=== PATIENT | male | born 1950 | race Caucasian/White ===

== ENCOUNTER → 2023-12-14 | Outpatient (CLI) | payer MEDICARE, SELFPAY ==
--- NOTE | 2023-12-14 15:49 | RAD_ITS ---
EXAM: XR LUMBOSACRAL SPINE, 4 OR 5 VIEWS CLINICAL INDICATION: SCIATICA TECHNIQUE: Frontal, lateral and bilateral oblique views of the lumbar spine. COMPARISON: No relevant prior studies available. FINDINGS: VERTEBRAE: Multilevel facet and endplate osteophytosis. [place] right curvature of the lumbar spine. No fracture or spondylolysis. No spondylolisthesis. SACRUM/COCCYX: Symmetric arthrosis of the bilateral SI joints. DISC SPACES: Markedly diminished intervertebral disc height throughout the lumbar spine. VASCULATURE: Vascular calcifications. GASTROINTESTINAL TRACT: Normal as visualized. Included bowel gas pattern is non-obstructive. RAD/L/S Spine Min 4 Views IMPRESSION: Severe degenerative changes. No definite acute osseous findings. Electronically Signed: Rizwan Garcia DO at 20:54 EDT ,
--- NOTE | 2023-12-14 15:50 | RAD_ITS ---
EXAM: XR CERVICAL SPINE, 4 OR 5 VIEWS CLINICAL INDICATION: neck pain, neuropathy TECHNIQUE: Frontal, lateral and bilateral oblique views of the cervical spine. COMPARISON: No relevant prior studies available. FINDINGS: VERTEBRAE: Multilevel facet, uncovertebral joint, and endplate osteophytosis. Straightening of expected cervical lordosis. Apparently degenerative anterolisthesis of C4 in relation to C3 and C5. No spondylolisthesis. No fracture or traumatic subluxation. DISC SPACES: Mild osseous encroachment of multiple bilateral neural foramina. Multilevel intervertebral disc height loss. Degenerative changes partially visualized in the upper thoracic spine. SOFT TISSUES: No significant abnormality. No prevertebral soft tissue widening. VASCULATURE: Vascular calcifications. LUNG APICES: Clear. RAD/Cerv Spine 4 or 5 Views IMPRESSION: Extensive degenerative changes as detailed above. No acute osseous findings. Consider follow-up MRI. Electronically Signed: Rizwan Garcia DO at 22:08 EDT ,
== END | disposition home or self-care (01) ==
LOC: MTRAD 15:46
PROVIDERS: PCP Family Medicine; Referring Provider Family Medicine; Visit Provider Family Medicine
DX: M54.30 Sciatica, unspecified side (principal); M54.2 Cervicalgia
CPT/HCPCS: 72050; 72110

== ENCOUNTER → 2023-12-19 | Outpatient (CLI) | payer MEDICARE, SELFPAY ==
[2023-12-19 10:38] LABS: Absolute Lymphocyte Count 1.42 X10^3/uL (0.83-4.51); Absolute Neutrophil Count 3.1 X10^3/uL (2.0-7.7); Basophil# 0.01 X10^3/uL; Basophil% 0.2 % (0-1); Eosinophil# 0.23 X10^3/uL; Eosinophils% 4.4 % (0-5); Hematocrit 43.9 % (40-54); Hemoglobin 14.4 g/dL (13.0-16.5); Lymphocyte # 1.42 X10^3/ul (0.83-4.51); Lymphocyte % 26.9 % (19-41); Mean Corp Hgb Conc 32.8 g/dL (32-36); Mean Corpuscular Hgb 30.1 pg (27.0-32.0); Mean Corpuscular Volume 91.6 fL (80-94); Mean Platelet Vol. 11.2 fl (6.2-12.0); Monocyte# 0.51 X10^3/uL; Monocyte% 9.7 % (0-10); NRBC Flagged by Analyzer 0 % (0-5); Neutrophil % 58.6 % (47-70); Platelet Count 196 K/mm3 (150-450); RBC Distribution Width CV 13.2 % (11.6-14.6); RBC Distribution Width SD 44.2 fl (35.1-43.9); Red Blood Count 4.79 M/mm3 (4.6-6.2); White Blood Count 5.3 K/mm3 (4.4-11.0)
[2023-12-19 11:18] LABS: Hemoglobin A1c 5.3 % (3.8-5.6)
[2023-12-19 13:03] LABS: AST(SGOT) 22 U/L (15-37); Alanine Aminotransfer ALT/SGPT 24 U/L (16-61); Albumin, Serum 3.5 g/dL (3.2-5.0); Alkaline Phosphatase 75 U/L (45-117); Anion Gap 6 (5-15); BUN 12 mg/dL (7-18); BUN/Creat Ratio 13.6 RATIO (10-20); Calcium,Total 8.9 mg/dL (8.5-10.1); Chloride 108 mmol/L (98-107); Cholesterol 209 mg/dL (200); Creatinine, Serum 0.88 mg/dL (0.70-1.30); EST Glomerular Filtration Rate 89 mL/min (>60); Est Glom Filt Rate - Afr Amer 108 mL/min (>60); Globulin 3.5 g/dL (2.2-4.2); Glucose 96 mg/dL (74-106); High Density Lipoprotein 42 mg/dL; Potassium 4.1 mmol/L (3.5-5.1); Sodium Level 139 mmol/L (136-145); Thyroid Stim Hormone (TSH) 3.33 uIU/mL (0.358-3.74); Triglycerides 231 mg/dL; Very Low Density Lipoprotein 46 mg/dL (5-40)
== END | disposition home or self-care (01) ==
LOC: MTLAB 08:47
PROVIDERS: PCP Family Medicine; Referring Provider Family Medicine; Visit Provider Family Medicine
DX: I10 Essential (primary) hypertension (principal); Z12.5 Encounter for screening for malignant neoplasm of prostate; E78.5 Hyperlipidemia, unspecified; Z13.1 Encounter for screening for diabetes mellitus
CPT/HCPCS: 36415; 80053; 80061; 83036; 84153; 84443; 85025; G0103

== ENCOUNTER → 2024-01-23 | Outpatient (CLI) | payer MEDICARE, SELFPAY ==
--- NOTE | 2024-01-23 17:57 | MRI_ITS ---
STUDY: MRI LUMBAR SPINE WITHOUT CONTRAST REASON FOR EXAM: Male, 73 years old. partial right foot drop, leg weakness, hx of L4-L5 sx 14yrs ago, previous xrays TECHNIQUE: Standardized fat and water weighted pulse sequences were obtained in the sagittal and axial planes. COMPARISON: Lumbar spine x-ray dated January 23, 2024 FINDINGS: Normal lumbar lordosis. There is no substantial scoliosis. Normal conus medullaris that terminates at the L1. T12-L1: Normal endplates. Normal disc height, hydration and morphology. Normal bilateral facet joints. Normal central canal and bilateral lateral recesses. Normal bilateral intervertebral neural foramina. L1-2: Diffuse disc desiccation. Small Schmorl''s nodes. Mild to moderate facet joint and ligament of flavum hypertrophy. Mild central canal stenosis. Normal bilateral intervertebral neural foramina. L2-3: Severe disc space narrowing with moderate Modic endplate degenerative changes. Diffuse disc osteophyte complex. Moderate facet joint and ligament of flavum hypertrophy. Bilateral lateral recess stenosis and mild central canal stenosis. L3-4: Diffuse disc desiccation with moderate disc space narrowing and a right paracentral disc protrusion causing right lateral recess stenosis with nerve root compression. Moderate central canal stenosis. Moderate facet joint and ligamenta flava hypertrophy. Severe bilateral foraminal stenosis with nerve root compression. L4-5: Diffuse disc desiccation with moderate disc space narrowing and diffuse disc bulging. Severe right facet joint hypertrophy. Mild left facet joint hypertrophy. Mild to moderate bilateral foraminal stenosis. Mild central canal stenosis. L5-S1: Normal endplates. Diffuse disc desiccation with mild disc space narrowing and annular bulging. Mild facet joint hypertrophy. Normal central canal and bilateral lateral recesses. Normal bilateral intervertebral neural foramina. Normal visualized sacral ala. Normal visualized paraspinous soft tissue structures. MRI/Spine Lumbar (Routine) IMPRESSION: 1. Multilevel degenerative changes, as described above. Electronically Signed: Hernan Velazco MD at 11:13 EDT ,
== END | disposition home or self-care (01) ==
LOC: MRI 17:45
PROVIDERS: PCP Family Medicine; Referring Provider Orthopaedic Surgery Orthopaedic Surgery of the Spine; Visit Provider Orthopaedic Surgery Orthopaedic Surgery of the Spine
DX: M21.371 Foot drop, right foot (principal)
CPT/HCPCS: 72148

== ENCOUNTER 2024-03-05 12:52 | Inpatient (IN) | payer MEDICARE, SELFPAY ==
[2024-02-21 10:11] LABS: Magnesium 2.2 mg/dL (1.6-2.6)
[2024-02-21 14:22] LABS: HIV - WCH Non-Reactive (Nonreactive); Hepatitis B Surface Antibody Non-Reactive; Hepatitis C Antibody Non-Reactive (Nonreactive)
[2024-02-22 05:07] LABS: Hepatitis A AB, Total Positive (Negative)
[2024-03-05] VITALS (18 sets, daily range): BP systolic 95–144; BP diastolic 53–75; PULSE 57–80; RESP 10–99; TEMP 36.1–36.7; O2SAT 15–100; BMI 31.6
[2024-03-05] MEDS: Lactated Ringers 1,000 ML 15 ML IV ×2 (06:00→15:22)
[2024-03-05] MEDS: Magnesium 1 GM over 15 mins IV (06:10)
[2024-03-05] MEDS: Acetaminophen 500 MG Tablet 1000 MG PO ×3 (06:29→21:23)
--- NOTE | 2024-03-05 07:22 | HP.PCM_ITS ---
History and Physical Date of Admission: 03/05/24 MR#: [id number] Acct: [id number] Name: JACKLYN WU Rep #: [id number] : 1950 Provider: Dr. Carson Vasquez MD Age/Sex: 73/M Location: [facility] [email or web address] Status: Signed Intake Vital Signs 01/22/2413:57 Height 5 ft 11 in Intake Visit Reasons: lumbar spine Chief Complaint: lumbar spine Accompanied by: Allergies No Known Allergies Allergy (Verified 02/28/24 08:11) Medications ?Medication ?Instructions ?Recorded ?Confirmed ?Type atorvastatin 20 mg tablet 20 mg PO DAILY HYPERLIDEMIA 01/23/24 02/28/24 History multivitamin 1 tab PO DAILY SUPPLEMENT 01/23/24 02/28/24 History naproxen 500 mg tablet 500 mg PO BID PRN pain 01/23/24 02/28/24 History omega-3 fatty acids 1,250 mg 1,250 mg PO BID SUPPLEMENT 01/23/24 02/28/24 History capsule omeprazole 40 mg capsule,delayed 40 mg PO DAILY GERD 01/23/24 02/28/24 History release gabapentin 300 mg capsule 600 mg PO TID NERVE PAIN 01/31/24 02/28/24 History Have you fallen in the past year?: No PFSH Medical History Wears glasses Alcohol use Arthritis Back pain Heartburn Gastric reflux Leg cramps History of edema Non-smoker Surgical History History of colonoscopy History of back surgery History of knee replacement Social History Smoking Status: Never smoker alcohol intake: current alcohol intake frequency: 0-2 drinks per day substance use type: does not use frequency: 1-2 times per week HPI lumbar spine Details: This documentation accurately reflects the service provided and the decisions made by me, Dr. Carson Vasquez MD 02/28/24 0804. Part of today?s visit was documented by Nolvia CHILDERS, acting as scribe. JACKLYN WU is a 73 year old M here today for pre-op lumbar spine dos 03/05/24. Patient denies any changes. Jacklyn continues to have low back pain with right partial foot drop, with bilateral right worse than left lower extremity radiation and difficulty walking distances. Following his his previous history: 01/31/24: JACKLYN WU is a 73 year old M here today for MRI review. Patient states his pain gotten worse since the MRI. Jacklyn comes in for follow-up after the MRI. He continues to have low back pain with right lower extremity radiation of pain with weakness and numbness and persistent difficulty with right partial foot drop. His hand numbness and balance have somehow improved over the last week, which she attributes to stopping pregabalin. Following his his previous history: 01/23/24: JACKLYN WU is a 73 year old M here today for lumbar spine pain. Pt. advises he had L4-L5 surgery 15 years ago. He states his pain flared up a couple months ago and he is experiencing pain from his low back down his right leg. He states his right leg feels heavy and he has numbness in his right foot and great toe. He was referred by Dr. Sinha. He takes Gabapentin which he has taken for about 10 years for nerve pain. He recently started taking Lyrica instead of Gabapentin which he thinks is making him dizzy. He also takes Naproxen for pain. Jacklyn had L4-5 decompression surgery 15 years ago. He describes that he had significant low back pain and right lower extremity radiation back then. Surgery initially helped to some extent with the leg symptoms but continued to bother his lower back for many many years. Over the last 2 months he has noticed that his right leg feels heavy and he flops his right foot after walking. He also notices hand numbness and dexterity issues. He has bilateral lower extremity numbness worse on the right side. He is nondiabetic. He denies any previous strokes. He is not on any blood thinners. He also notices axial neck pain without any radiation. He has only dexterity issues with clumsiness using his hand with small tools. Ortho Exam General General: Yes no acute distress Neurologic: Yes alert and Yes oriented x3 Spine SPINE TESTING CERVICAL THORACIC LUMBAR Musculoskeletal Strength 0=absent - 5=normal Details: Examination the back shows midline and paraspinal tenderness. Neurologic evaluation of upper and lower extremity shows 5 x 5 power normal shows except for right ankle dorsiflexion which is graded 4 -. Romberg's is positive. There is no hyperreflexia lower extremities. Lenny's negative. Coding Level of Care Code Off vis,est,level 4 Diagnoses Spondylolisthesis, lumbar region M43.16 Foot drop, right M21.371 Cervical myelopathy G95.9 Time Spent (min) 35 Assessment and Plan Assessment and Plan (1) Spondylolisthesis, lumbar region: Status: Acute (2) Foot drop, right: Status: Acute (3) Cervical myelopathy: Status: Acute Plan I again reviewed his x-rays of the lumbar and cervical spine done last month. I also reviewed his most recent lumbar MRI from last week. These show multilevel disc height loss with L4-5 grade 1 spondylolisthesis with dynamic instability. There is L2-5 degenerative stenosis. L2-3 shows Modic changes with severe disc height loss and disc degeneration. L3-4 shows central stenosis. L4-5 shows lateral recess and foraminal stenosis bilaterally with reduction of spondylolisthesis due to supine positioning. Cervical spine shows C3-4 disc height loss with retrolisthesis with C4-5 spondylolisthesis. Screening images of cervical spine on the MRI lumbar spine suggest C3-4 stenosis with cord in dentation. I again explained to him the imaging findings in detail. He has developed partial foot drop on the right side and has neurogenic claudication and walking distances. He also has signs symptoms suggestive of cervical myelopathy with dexterity, hand numbness and balance issues. Somehow these myelopathic symptoms have improved over time which he attributes to stopping pregabalin. I explained to him that cervical myelopathy is a progressive pattern and he should keep a close eye on those symptoms and if there is worsening he may need cervical spine MRI and possibly surgery on an urgent basis. However at this time his main symptom seems to be right partial foot drop as well as severe radicular pain as well as claudication. Because of the presence of weakness and neurologic defic it, I recommend surgery for the lumbar spine in the form of L2-5 decompression fusion. L2-5 anterior posterior fusion with indirect decompression was discussed in detail. All risk benefits and alternatives were discussed. The risks include but are not limited to infection, bleeding, injury to nerves and vessels, visceral injury, ileus, vascular injury, pseudoarthrosis, hardware failure, nerve root injury, foot drop, DVT, pulmonary embolism, pneumonia, atelectasis, cardiopulmonary event, adjacent segment degeneration, need for further surgery, persistent pain, persistent weakness. Patient understands and agrees to proceed with surgery. Consent was signed.
--- NOTE | 2024-03-05 07:24 | PRE.ANES_ITS ---
ASA Classification* ASA Classification ASA Classification: 2 Assessment & Plan Anesthesia* Anesthesia Assessment Anesthesia Assessment: Discussed sedation and/or anesthesia options, risks, benefits, and alternatives with patient/parents/legal guardian/POA. Questions invited. The patient/parents/legal guardian/POA seems to understand and agrees to proceed with anesthesia plan. Reviewed the physical assessment, medical history, allergy history and patient home medications list prior to surgery/procedure/anesthetic and documented any changes. Performed airway and anesthesia risk assessments. Anesthesia Type Anesthesia Type: General Anesthesia Focused Assessment* Temperature: 98.1 F Pulse Rate: 58 Blood Pressure: 144/67 Respiratory Rate: 18 Pulse Ox: 97 Airway Assessment Mouth opens: >3 cm Mallampati Score: II Focused Labs Anesthesia Preop lab: CBC WBC 5.3 K/mm3 (4.4-11.0) 12/19/23 08:49 RBC 4.79 M/mm3 (4.6-6.2) 12/19/23 08:49 Hgb 14.4 g/dL (13.0-16.5) 12/19/23 08:49 Hct 43.9 % (40-54) 12/19/23 08:49 Plt Count 196 K/mm3 (150-450) 12/19/23 08:49 CHEMISTRY Potassium 4.1 mmol/L (3.5-5.1) 12/19/23 08:49 Sodium 139 mmol/L (136-145) 12/19/23 08:49 Magnesium 2.2 mg/dL (1.6-2.6) 02/21/24 09:17 BUN 12 mg/dL (7-18) 12/19/23 08:49 Creatinine 0.88 mg/dL (0.70-1.30) 12/19/23 08:49 Glucose 96 mg/dL (74-106) 12/19/23 08:49 TSH 3.33 uIU/mL (0.358-3.74) 12/19/23 08:49 COAG Pre-Assessment Diagnosis/Proposed Procedure Planned Operative Procedure(s): ERAS 360 Lumbar Fusion L2-3, L3-4 and L4-5 Anesthesia History 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 When Was Last Pacemaker Check QUESTION #4 FULL TEXT: You/Your Family Experience fever (hyperthermia) with Anesthesia Last Oral Intake Last Oral intake: Last Oral Intake NPO since 04:30 03/05/24 06:00 Meds taken in AM with sips of Yes 03/05/24 06:00 water? Meds patient instructed to OMEPRAZOLE 03/05/24 06:00 take am of surgery PONV PONV - machine shop repair technician: PONV - machine shop repair technician Female No 02/20/24 13:06 HX of Motion Sickness No 02/20/24 13:06 HX of N/V After Surgery No 02/20/24 13:06 Non-Smoker Yes 02/20/24 13:06 Duration of Surgery greater Yes 02/20/24 13:06 than 60 minutes Number of Risk Factors 2 02/20/24 13:06 PONV Score Moderate Risk 02/20/24 13:06 Height & Weight Height & Weight: Anesthesia: Height & Weight Height 5 ft 11 in 03/05/24 06:00 Weight: 103 kg 03/05/24 06:00 Body Mass Index (BMI) 31.6 03/05/24 06:00 Respiratory Assessment Respiratory Assessment - machine shop repair technician: Respiratory Tract Infection Hx - machine shop repair technician Hx Respiratory Tract Infection No 02/20/24 13:06 STOP Sleep Apnea STOP Sleep Apnea - machine shop repair technician: STOP Sleep Apnea - machine shop repair technician Hx Hypertension No 02/20/24 13:06 Hx Sleep Apnea No 02/20/24 13:06 CPAP BIPAP Do you snore loudly (louder No 02/20/24 13:06 than talking or can be heard Do you often feel tired/ No 02/20/24 13:06 fatigued/ sleepy during daytime? Has anyone observed you stop No 02/20/24 13:06 breathing during sleep? STOP Results Negative 02/20/24 13:06 QUESTION #5 FULL TEXT : Do you snore loudly (louder than talking or can be heard through closed doors)? Tobacco Use History Tobacco Use History - machine shop repair technician: Tobacco Use History - machine shop repair technician Tobacco Use Smoking Status Never smoker 02/20/24 13:06 Hx Tobacco Use No 02/20/24 13:06 Years Smoking Packs Smoked per Day Smoking Cessation Date was within the last 15 years Hx Smoking Cessation Date Hx Smoking Cessation Counseling Hematologic Medial History Hematologic Hx - machine shop repair technician: Hematologic Medical Hx - [employer] Hx of Blood Transfusion No 02/20/24 13:06 Hx of Transfusion in last 3 No 02/20/24 13:06 Months Date of Last Transfusion (if within last 3 months) Ever experience any problems No 02/20/24 13:06 with transfusion(s)? Specify any problems Hx of Preganancy in last 3 N/A 02/20/24 13:06 Months Nurse Filling Out Transfusion NBUCHER 02/20/24 13:06 & Questions: Date: 02/20/24 02/20/24 13:06 Time: 13:08 02/20/24 13:06 Patient unable to answer at this time (ie. confused, unrespo /Reproduction History /Reproductive History - machine shop repair technician: /Reproductive Hx- machine shop repair technician Hx Now No 02/20/24 13:06 Gestational Age (in weeks): EDC: Hx Hx Para Hx Section SAB No 02/20/24 13:06 Active Medications Active Medications: Current Medications Generic Name Dose Route Start Last Admin Trade Name Freq PRN Reason Stop Dose Admin Acetaminophen 1,000 mg 03/05/24 07:30 03/05/24 06:29 Acetaminophen 500 Mg Tablet PO 03/05/24 07:31 1,000 mg X1 ONE Administration Cefazolin Sodium 2 gm/ Sodium 110 mls @ 150 mls/hr 03/05/24 07:30 Chloride IV 03/05/24 08:13 PREOP ONE Magnesium Sulfate 1 gm/ 102 mls @ 408 mls/hr 03/05/24 07:30 03/05/24 06:10 Dextrose IV 03/05/24 07:44 408 mls/hr X1 ONE Administration Lactated Ringer's 1,000 mls @ 15 mls/hr 03/05/24 05:45 03/05/24 06:00 IV 15 mls/hr .Q48H AB Administration Insulin Human Lispro 1 - 6 unit 03/05/24 07:30 Insulin Lispro 100 Unit/Ml Insuln.Pen SC Q4H PRN PRN BG>/= 180, SEE PROTOCOL Protocol PFSH Medical History Wears glasses Alcohol use Arthritis Back pain Heartburn Gastric reflux Leg cramps History of edema Non-smoker Home Medications ?Medication ?Instructions ?Recorded ?Last Taken ?Type atorvastatin 20 mg tablet 20 mg PO DAILY HYPERLIDEMIA 01/23/24 03/04/24 21:00 History multivitamin 1 tab PO DAILY SUPPLEMENT 01/23/24 03/04/24 06:30 History naproxen 500 mg tablet 500 mg PO BID PRN pain 01/23/24 Unknown History omega-3 fatty acids 1,250 mg 1,250 mg PO BID SUPPLEMENT 01/23/24 03/04/24 06:30 History capsule omeprazole 40 mg capsule,delayed 40 mg PO DAILY GERD 01/23/24 03/05/24 04:30 History release gabapentin 300 mg capsule 600 mg PO TID NERVE PAIN 01/31/24 03/05/24 04:30 History Allergy/AdvReac Type Severity Reaction Status Date / Time No Known Allergies Allergy Verified 03/05/24 06:16 Surgical History History of colonoscopy History of back surgery History of knee replacement Social History Smoking Status: Never smoker alcohol intake: current alcohol intake frequency: 0-2 drinks per day substance use type: does not use frequency: 1-2 times per week Review of Systems (Anesthesia) ROS Narrative System reviewed and no additional complaints, except as documented.
[2024-03-05] MEDS: Cefazolin 2 GM in 0.9% Normal Saline (100mL Bag) 100 ML IV ×3 (07:31→21:15)
--- NOTE | 2024-03-05 08:30 | RAD_ITS ---
PROCEDURE: Intraoperative imaging for L2-L3, L3-L4 and L4-L5 fusion. DATE OF EXAMINATION: March 05, 2024. INDICATION: Male, 73 years old. Chronic low back pain. FLUOROSCOPY TIME (if supplied): (2 minutes and 28 seconds) minutes/seconds. 93.92 mGy. RAD/Lumbar Spine 2 or 3 Views IMPRESSION: Intraoperative imaging provided for fusion and prosthetic disc placement at the L2-L3 and L3-L4 and L4-L5 levels. Electronically Signed: Rafa Leigh MD at 15:31 EDT ,
[2024-03-05] MEDS: Ropivacaine 0.5% 30 ML Vial (12:15)
--- NOTE | 2024-03-05 12:57 | PCM.POST.ANE ---
Anesthesia: Postop Eval I Current Vital Signs Temperature: 97 F Pulse Rate: 64 Blood Pressure: 100/58 Respiratory Rate: 18 Pulse Ox: 94 (NASAL AIRWAY IN) Oxygen Delivery Method: Nasal Cannula Oxygen Flow Rate (L/min): 4 Assessment Airway patent: Yes Spontaneous unlabored respirations: Yes Mental status: Asleep nausea: No Vomiting: No Anesthesia Complication: No Fluid Hydration Crystalloid volume administer (ml): 2,050 Total IV fluid infused: 2,050 Progress Note Anesthesia document: Postop Eval 1 completed: Yes
--- NOTE | 2024-03-05 13:04 | OP.PCM_ITS ---
Report of Operation Date of Procedure: 03/05/24 Description of Surgical Findings:: Preoperative diagnosis: L4-5 spondylolisthesis, L2-5 disc degeneration, stenosis with neurogenic claudication, right foot drop Postoperative diagnosis: Same Name of procedures L2-5 oblique lumbar interbody fusion (OLIF), minimally invasive left sided approach, lateral decubitus: ? L2-3 anterolateral spinal fusion 02415 ? L3-4 anterolateral fusion 55821/51 ? L4-5 anterolateral fusion 68019/51 ? L2-3 insertion of cage 06566 ? L3-4 insertion of cage 14954/51 ? L4-5 insertion of cage 18611/51 ? Bone graft aspirate left iliac crest separate incision ? Allograft cancellous chips Attending Surgeon: Dr. Carson Vasquez Estimated blood loss: 100 mL Anesthesia: General Complications: None Indications: Patient is a 73-year-old pleasant gentleman who has had a long history of low back pain and bilateral lower extremity radiation, right foot drop. Xrays & MRI revealed L4-5 spondylolisthesis, L2-5 disc degeneration with stenosis. After undergoing a prolonged period of nonoperative treatment and due to the new worsening right foot drop, the patient elected to undergo surgical decompression & fusion. All surgical options were discussed with the patient including anterior and posterior approaches. All risks and benefits associated with the procedure were explained to the patient. The risks include but are not limited to infection, bleeding, injury to nerves and vessels including major vessels like IVC and aorta, persistent paresthesia, persistent pain, dural tear, need for further procedures, adjacent segment degeneration, pseudoarthrosis, hardware failure, retrograde ejaculation, paralytic ileus, etc. Procedure: The patient was identified in the preoperative holding suite using Unique patient identifiers. Skin was marked, consent was reviewed, and all questions were answered. The patient was then brought back to the operative room. A surgical timeout was performed to make sure correct procedure was being done on the correct patient and all operative room staff were on the same page. General endotracheal anesthesia was then given to the patient. Austin catheter was inserted. The patient was then carefully positioned in right lateral decubitus position with the left side up on a regular OR table. Axillary roll was placed and all bony prominences were well- padded. Hip positioners were placed in the posterior buttocks and anterior sternal area. The surgical area was prepped and draped in usual fashion. Preoperative antibiotic was injected IV as preoperative antibiotic. A final timeout was then again done just before starting the procedure. A 2 inch incision oblique was taken in the left lower quadrant of the abdomen 2 fingerbreadths away from the iliac crest and the lower ribs. Sharp dissection with Bovie was carried out up to the fascia covering the external oblique. The external oblique, internal oblique and transversus abdominis muscles were split along the muscle fibers and retroperitoneal space was entered. Sponge sticks were utilized to move the bowel and peritoneum zrb-[id number]-hkd-way and psoas muscle was exposed staying within the retroperitoneal plane. Job36 retractor system was positioned and the retractor blade was applied onto the psoas. The interval between psoas and midline structures was developed and appropriate retractors were placed. Once adequate interval was cleared, a disc space was identified and a marker x-ray was taken. This identified the L3-4 disc level. The prepsoas interval was then traced inferiorly to expose the L4-5 level. Annulotomy was done with a long handled knife starting at L4-5. Pituitary was used to remove disc material. Curettes were used to prepare the endplates. Disc space spreaders were utilized to distract and increase the disc height. Near complete discectomy was performed. Trials of serially increasing sizes were used. A Jamshidi needle was used to aspirate bone marrow from the left anterior iliac crest through a separate incision and this aspirate was mixed with the allograft bone chips. A Depuy Smiley cage of size of the 18 x 50 x 14 mm with 15 degrees lordosis was packed with corticocancellous allograft bone chips mixed with bone marrow aspirate. This was inserted into the L4-5 disc space. The retractors were then repositioned to expose the L3-4 and L2-3 disc and the procedure was repeated with complete discectomy and endplate preparation. Smaller disc distractors were also used to bluntly perform a contralateral annulotomy at all the levels. Cage size was 18 x 50 x 14 mm at L3-4 and 18 x 50 x 12 mm at L2-3. AP and lateral C-arm pictures were taken to confirm good position of the cage. Some bone chips were also packed around the cages. Screw with washer was placed into the lower L2 body with a washer partially covering the cage at L2-3. Hemostasis was confirmed. The retractor blades were removed. Closure was done in layers with a continuous strand of # 1 Vicryl in all muscle layers. 2-0 Vicryl was used for subcutaneous tissue and 4-0 for Monocryl for the skin. Steri-Strips were applied and 4 x 4 gauze and Tegaderm were applied. Surgeon: Carson Vasquez client services assistant: Goldie Thurston Admit VTE Documentation VTE Mechan Device Prophylaxis: SCD's Procedures Musculoskeletal 20xxx-29xxx: Other Procedure See Report
--- NOTE | 2024-03-05 13:09 | PCM.OPRPT ---
Report of Operation Date of Procedure: 03/05/24 Description of Surgical Findings:: Preoperative diagnosis: L4-5 spondylolisthesis, L2-5 disc degeneration, stenosis with neurogenic claudication Postoperative diagnosis: Same Name of procedures: L2-5 posterior percutaneous pedicle screw instrumented fusion, prone: ? L2-3 posterior spinal fusion 97327 ? L2-5 posterior pedicle screw instrumentation 86932 ? L3-4 posterior fusion 51148/51 ? L4-5 posterior fusion 51 ? Allograft cancellous chips Attending Surgeon: Dr. Carson Vasquez Estimated blood loss: 100 mL (total for entire case) Anesthesia: General Complications: None Description of procedure: After the anterior procedure was complete, the patient was then turned supine. The patient was then transferred to Jose Antonio table in prone position. Back was prepped and draped in usual fashion. C-arm AP view was then taken. C-arm was positioned in a way that L2 was centralized and superior endplate of was parallel to the beam. Spinous process was centered between the pedicles. Midline was marked with skin marker and lateral borders of the pedicles were also marked. Skin marker was also utilized to jessee transversely across the middle of the pedicles at L2. 2 transverse paramedian incisions of 1 inch were placed. The fascia was incised vertically. Finger dissection was utilized to palpate the transverse process and facet joint. Viper Prime screws with towers were inserted and docked onto the transverse processes. This was then slowly moved medially to reach the superior articular process of L2. This was then confirmed on C-arm and then a mallet was utilized to drive the trocar into the pedicle going up to the medial wall of the pedicle on AP view. This was performed both sides. C-arm lateral view confirmed that the tip of the trocar was in the vertebral body, and the screw was advanced into the pedicle and vertebral body. This was repeated similarly at L4 and L5 bilaterally. Screw sizes were 7 x 50 mm at L2, L4 and L5 on both sides. 100 mm precontoured titanium 5.5 mm lordotic tammy on both sides were then passed through the screw extensions and reduced down to the screws with the help of [place] ([employer]le[employer]) instrumentation system on both sides. AP and lateral view of the C-arm showed good positioning of the screws and cages. Final tightening with the torque screwdriver was then completed. [place] was utilized to roughen the facet joint at L2-3, L3-4 and L4-5 on the left side. Cancellous allograft bone chips mixed with bone marrow aspirate were then placed over this decorticated area. Hemostasis was achieved. Closure was done in layers with 0 Vicryls for the fascia, 2-0 Vicryls for the subcutaneous tissue, and Monocryl for the skin. Dermabond was applied. Dressings were applied covered with Tegaderm. The patient was then turned supine onto a hospital bed. The patient was extubated and taken to PACU in stable condition. The patient tolerated the procedure well and no complications occurred. SwiftPayMD(TM) by [employer] [place] cage & Viper Prime minimally invasive pedicle screw instrumentation system was utilized in this case. No dural tear was identified intraoperatively. I was present for the entirety of the case and performed the surgery. Surgeon: Carson Vasquez escrow closer: Goldie Thurston Admit VTE Documentation VTE Mechan Device Prophylaxis: SCD's Procedures Musculoskeletal 20xxx-29xxx: Other Procedure See Report
--- NOTE | 2024-03-05 13:22 | POSTOPAN2_ITS ---
Anesthesia Postop Eval I Sum Postop Eval Completion status Anesthesia document: Postop Eval 1 completed: Yes Anesthesia Postop Eval I Summary Anesthesia Postop Eval I Summary: Anesthesia Postop Eval I: Assessment Summary Airway patent Yes 03/05/24 12:58 COMMUNICATION ARTS [email or web address] Spontaneous unlabored Yes 03/05/24 12:58 COMMUNICATION ARTS [email or web address].SCHR respirations Mental status Asleep 03/05/24 12:58 COMMUNICATION ARTS [email or web address].SCHR nausea No 03/05/24 12:58 COMMUNICATION ARTS [email or web address].SCHR Vomiting No 03/05/24 12:58 COMMUNICATION ARTS [email or web address].[facility] Anesthesia Postop Eval I: Fluid Summary Crystalloid volume administer 2,050 03/05/24 12:58 COMMUNICATION ARTS [email or web address].SCHR (ml) Colloids volume administered ( ml) Blood Product volume administered (ml) Total IV fluid infused 2,050 03/05/24 12:58 COMMUNICATION ARTS [email or web address].COUNT IN[facility]ES [facility] Anesthesia Postop Eval I: Summary Notes Anesthesia Complication No 03/05/24 12:58 COMMUNICATION ARTS [email or web address].COUNT IN[facility] Anesthesia Complication Comment: Post-operative progress note Anesthesia: Postop Eval II Evaluation Mental status: Awake Pain Level: 3 nausea: No Vomiting: No
--- NOTE | 2024-03-05 13:22 | PCM.POSTANE2 ---
Anesthesia Postop Eval I Sum Postop Eval Completion status Anesthesia document: Postop Eval 1 completed: Yes Anesthesia Postop Eval I Summary Anesthesia Postop Eval I Summary: Anesthesia Postop Eval I: Assessment Summary Airway patent Yes 03/05/24 12:58 PALS [email or web address] Spontaneous unlabored Yes 03/05/24 12:58 PALS [email or web address].SCHR respirations Mental status Asleep 03/05/24 12:58 PALS [email or web address].SCHR nausea No 03/05/24 12:58 PALS NURSE.SCHR Vomiting No 03/05/24 12:58 PALS NURSE.[facility] Anesthesia Postop Eval I: Fluid Summary Crystalloid volume administer 2,050 03/05/24 12:58 PALS NURSE.SCHR (ml) Colloids volume administered ( ml) Blood Product volume administered (ml) Total IV fluid infused 2,050 03/05/24 12:58 PALS NURSE.[facility] Anesthesia Postop Eval I: Summary Notes Anesthesia Complication No 03/05/24 12:58 PALS NURSE.[facility] Anesthesia Complication Comment: Post-operative progress note Anesthesia: Postop Eval II Evaluation Mental status: Awake Pain Level: 3 nausea: No Vomiting: No
--- NOTE | 2024-03-05 13:25 | SUR.PHASEI ---
KNOWN FOOT DROP TO RIGHT FOOT, GOOD STRENGTH FOR PEDAL PUSHES B/L, DECREASED PEDAL PULL ON RIGHT EXPECTED.
[2024-03-05] MEDS: Gabapentin 300 MG Capsule 600 MG PO (14:00)
[2024-03-05] MEDS: oxyCODONE 5 MG Tablet PO ×2 (14:16→21:17)
[2024-03-05] MEDS: Methocarbamol 500 MG Tablet 1000 MG PO ×3 (16:24→21:24)
[2024-03-05] MEDS: Morphine 2 MG/ML Syringe IV (16:37)
[2024-03-05] MEDS: Ketorolac 15 MG/ML Vial IV ×2 (18:07→23:49)
[2024-03-05] MEDS: Gabapentin 600 MG Tablet PO (21:18)
[2024-03-05] MEDS: Senna/Docusate Sodium 1 Tablet 2 TABLET PO (21:23)
[2024-03-05] MEDS: Atorvastatin Calcium 20 MG Tablet PO (21:23)
[2024-03-05] MEDS: Omega-3 Acid Ethyl Esters 1 GM Capsule PO (21:23)
[2024-03-05] MEDS: Morphine 4 MG/ML Syringe IV (23:43)
[2024-03-06] MEDS: oxyCODONE 5 MG Tablet PO ×4 (02:14→20:47)
[2024-03-06 02:29] VITALS: BP 126/56; PULSE 73; RESP 16; TEMP 36.8; O2SAT 96
[2024-03-06] MEDS: Cefazolin 2 GM in 0.9% Normal Saline (100mL Bag) 100 ML IV (04:06)
[2024-03-06] MEDS: Acetaminophen 500 MG Tablet 1000 MG PO ×3 (06:17→20:47)
[2024-03-06] MEDS: Methocarbamol 500 MG Tablet 1000 MG PO ×4 (06:18→23:53)
[2024-03-06] MEDS: Ketorolac 15 MG/ML Vial IV (06:18)
[2024-03-06] MEDS: Gabapentin 600 MG Tablet PO ×3 (06:33→20:47)
[2024-03-06 06:53] LABS: Hematocrit 38.5 % (40-54); Hemoglobin 12.7 g/dL (13.0-16.5); Mean Corpuscular Hgb 30.3 pg (27.0-32.0); Mean Corpuscular Volume 91.9 fL (80-94); Mean Platelet Vol. 10.8 fl (6.2-12.0); Platelet Count 210 K/mm3 (150-450); RBC Distribution Width CV 13.2 % (11.6-14.6); RBC Distribution Width SD 44.5 fl (35.1-43.9); Red Blood Count 4.19 M/mm3 (4.6-6.2); White Blood Count 15.5 K/mm3 (4.4-11.0)
[2024-03-06 07:25] LABS: Anion Gap 8 (5-15); BUN 17 mg/dL (7-18); BUN/Creat Ratio 13.4 RATIO (10-20); Calcium,Total 8.9 mg/dL (8.5-10.1); Chloride 102 mmol/L (98-107); Creatinine, Serum 1.27 mg/dL (0.70-1.30); EST Glomerular Filtration Rate 59 mL/min (>60); Est Glom Filt Rate - Afr Amer 71 mL/min (>60); Glucose 123 mg/dL (74-106); Potassium 4.3 mmol/L (3.5-5.1); Sodium Level 135 mmol/L (136-145)
[2024-03-06 07:51] VITALS: BP 130/63; PULSE 67; RESP 16; TEMP 36.4; O2SAT 97
[2024-03-06] MEDS: Bisacodyl 5 MG Tablet 10 MG PO (08:12)
[2024-03-06] MEDS: Multivitamins,Therapeutic Tablet 1 TABLET PO (08:12)
--- NOTE | 2024-03-06 09:25 | RAD_ITS ---
STUDY: X-RAY - LUMBAR SPINE REASON FOR EXAM: Male, 73 years old. s/p lumbar fusion -- upright AP and lat TECHNIQUE: 2 view(s) of the lumbar spine were obtained. COMPARISON: Comparison is made with prior study January 23, 2024. FINDINGS: The patient is status post interpedicular screw and tammy fixation at the L2 L4 and L4-L5 levels with prosthetic disc placement. RAD/Lumbar Spine 2 or 3 Views IMPRESSION: Status post interpedicular screw and tammy fixation at the L2 L4 and L4-L5 levels. Prosthetic disks at the L2-L3, L3-L4 and L4-L5 levels. Electronically Signed: Rafa Leigh MD at 11:01 EDT ,
[2024-03-06] MEDS: Omega-3 Acid Ethyl Esters 1 GM Capsule PO ×2 (10:09→20:48)
[2024-03-06] MEDS: Pantoprazole Sodium 40 MG Tablet PO (10:09)
[2024-03-06] MEDS: Senna/Docusate Sodium 1 Tablet 2 TABLET PO ×2 (10:09→20:47)
[2024-03-06 11:17] VITALS: BP 144/70; PULSE 70; RESP 18; TEMP 36.7; O2SAT 93
[2024-03-06] MEDS: Meloxicam 15 MG Tablet PO (11:19)
--- NOTE | 2024-03-06 11:40 | PCM.PN.HOSP ---
Subjective Subjective Doing well, no issues overnight Objective Data Objective Data Vital Signs: Vital Signs Temp Pulse Resp BP Pulse Ox O2 Del Method O2 Flow Rate 98.0 F 70 18 144/70 H 93 Room Air 2 03/06/24 11:17 03/06/24 11:17 03/06/24 11:17 03/06/24 11:17 03/06/24 11:17 03/06/24 11:17 03/05/24 17:56 Oxygen Flow Rate (L/min) 2 Oxygen Delivery Method Room Air Weight: 227 lb 1.218 oz Body Mass Index (BMI) 31.6 Intake & Output: Intake and Output for Last 24 Hours 03/05/24 03/06/24 03/07/24 03:59 03:59 03:59 Intake Total 3582.75 / 3582.75 110 / 110 Output Total 750 / 750 Balance 2832.75 / 2832.75 110 / 110 Lab / Micro Data 03/06/24 06:39 03/06/24 06:39 Labs: Laboratory Results - last 24 hr 03/06/24 06:39: WBC 15.5 H, RBC 4.19 L, Hgb 12.7 L, Hct 38.5 L, MCV 91.9, MCH 30.3, MCHC 33.0, RDW Std Deviation 44.5 H, RDW Coeff of Mejia 13.2, Plt Count 210, MPV 10.8, Sodium 135 L, Potassium 4.3, Chloride 102, Carbon Dioxide 25.0, Anion Gap 8, BUN 17, Creatinine 1.27, Estim Creat Clear Calc 61.40, Est GFR (MDRD) Af Amer 71, Est GFR (MDRD) Non-Af 59 L, BUN/Creatinine Ratio 13.4, Glucose 123 H, Calcium 8.9 Micro: Microbiology 02/21/24 09:18 Swab (Method) Nasal Screen MRSA/MSSA - Final Radiography Diagnostic Testing: Radiology Impression Lumbar Spine X-Ray 03/05/24 08:30 IMPRESSION: Intraoperative imaging provided for fusion and prosthetic disc placement at the L2-L3 and L3-L4 and L4-L5 levels. Electronically Signed: Rafa Leigh MD at 15:31 EDT , Lumbar Spine X-Ray 03/06/24 09:25 IMPRESSION: Status post interpedicular screw and tammy fixation at the L2 L4 and L4-L5 levels. Prosthetic disks at the L2-L3, L3-L4 and L4-L5 levels. Electronically Signed: Rafa Leigh MD at 11:01 EDT , Physical Exam Narrative General: Alert, Oriented x3, Cooperative, No apparent distress HEENT: Atraumatic, PERRLA, EOMI, Normocephalic Oral: Moist Mucosa Neck: Supple, No JVD Lungs: Diminished, Normal air movement, No rhonchi, No wheeze, No rales Cardiovascular: Regular rate, Regular Rhythm, Normal S1, Normal S2, No murmurs Abdomen: Soft, Non Tender, Non-Distended, No Hepato-splenomegaly Extremities: No edema, Capillary Refill Less than 3 Seconds Skin: Dressing CDI Musculoskeletal: No Tenderness to Palpation of Joints or Extremities Neurological: No focal neurological deficits, Motor Exam 5/5 strength throughout, Sensory exam intact to light touch and pain Psych/Mental Status: Normal Affect, Appropriate Assessment & Plan Assessment/Plan (1) Status post lumbar spinal fusion: PLAN: Plan 1. Status post L2-5 fusion for lumbar stenosis ? PT/OT ? Pain management per primary ? Reactive leukocytosis ? Renal function is stable ? Medically stable for discharge 2. Hyperlipidemia ? Stable/continue with statin 3. GERD ? Stable ?Continue PPI DVT: Per primary Will sign off Charges/Coding Visit Charges Inpatient E&M: 61275 Subs Hosp L2
[2024-03-06] MEDS: Morphine 2 MG/ML Syringe IV ×2 (12:10→15:05)
[2024-03-06] MEDS: 0.9% Saline Lock 10 ML Syringe IV ×2 (12:11→15:05)
[2024-03-06] MEDS: Ensure Surgery 237 ML LIQUID PO ×2 (12:32→17:24)
--- NOTE | 2024-03-06 12:34 | CASEMGMT ---
Social Work SW met with pt to discuss advance directives.? Pt confirms he has completed a living will and health care POA naming his Shabnam Tejada.? Pt notified that documents are not on file at [facility] and SW requested they be brought in for scanning into the EMR.? LILIBETH Desir
--- NOTE | 2024-03-06 12:37 | PCM.PN.ORT ---
Subjective Subjective Seen with Dr. Vasquez. Patient was laying supine in bed, then went from laying to sitting edge of bed with minimal pain. Patient is doing well after surgery. He has recently passed flatus and so will be advanced to a normal diet. He has walked with PT and is cleared from their end for discharge home. Still having some bilateral leg pain and burning, unsure which medications help most with the pain. Objective Data Objective Data Vital Signs: Vital Signs Temp Pulse Resp BP Pulse Ox O2 Del Method O2 Flow Rate 98.0 F 70 18 144/70 H 93 Room Air 2 03/06/24 11:17 03/06/24 11:17 03/06/24 11:17 03/06/24 11:17 03/06/24 11:17 03/06/24 11:17 03/05/24 17:56 Oxygen Flow Rate (L/min) 2 Oxygen Delivery Method Room Air Weight: 227 lb 1.218 oz Body Mass Index (BMI) 31.6 Intake & Output: Intake and Output for Last 24 Hours 03/04/24 03/05/24 03/06/24 23:59 23:59 23:59 Intake Total 3582.75 / 3582.75 110 / 110 Output Total 500 / 500 250 / 250 Balance 3082.75 / 3082.75 -140 / -140 Lab / Micro Data 03/06/24 06:39 03/06/24 06:39 Labs: Laboratory Results - last 24 hr 03/06/24 06:39: WBC 15.5 H, RBC 4.19 L, Hgb 12.7 L, Hct 38.5 L, MCV 91.9, MCH 30.3, MCHC 33.0, RDW Std Deviation 44.5 H, RDW Coeff of Mejia 13.2, Plt Count 210, MPV 10.8, Sodium 135 L, Potassium 4.3, Chloride 102, Carbon Dioxide 25.0, Anion Gap 8, BUN 17, Creatinine 1.27, Estim Creat Clear Calc 61.40, Est GFR (MDRD) Af Amer 71, Est GFR (MDRD) Non-Af 59 L, BUN/Creatinine Ratio 13.4, Glucose 123 H, Calcium 8.9 Micro: Microbiology 02/21/24 09:18 Swab (Method) Nasal Screen MRSA/MSSA - Final Radiography Diagnostic Testing: Radiology Impression Lumbar Spine X-Ray 03/05/24 08:30 IMPRESSION: Intraoperative imaging provided for fusion and prosthetic disc placement at the L2-L3 and L3-L4 and L4-L5 levels. Electronically Signed: Rafa Leigh MD at 15:31 EDT , Lumbar Spine X-Ray 03/06/24 09:25 IMPRESSION: Status post interpedicular screw and tammy fixation at the L2 L4 and L4-L5 levels. Prosthetic disks at the L2-L3, L3-L4 and L4-L5 levels. Electronically Signed: Rafa Leigh MD at 11:01 EDT , Physical Exam Narrative Right foot drop improved a grade from yesterday. Previous right foot drop graded 4-, currently 3-. Tegaderm and gauze intact. Assessment & Plan Assessment/Plan (1) Status post lumbar spinal fusion: PLAN: Plan Patient is ready for discharge home as he has passed flatus and cleared by PT. Patient is unsure if he is ready from a pain standpoint. He will contact us by 3pm today if he decides he is ready to go home, if not he will spend the night and be discharged tomorrow morning. Encouraged patient to withhold from IV Morphine for as long as he can to make the transition home easier.
--- NOTE | 2024-03-06 13:15 | CASEMGMT ---
RN?CM?CHILD DEVELOPMENT INSTRUCTOR?CM?to room to meet with patient for initial transition planning/care coordination?assessment.?RN?CM?introduced self and role at [facility].? Pt voices understanding and consents to?assessment?at this time.? Pt sitting up in chair in room in no distress at this time.? and son, Heron, @ bedside and pt agreeable to them being present during assessment. Pt is A/O at this time and answers all questions appropriately.?? Care providers, pharmacy, and demographics verified/updated at this time. Strata: 1 PCP: Dr Sinha. Pt also goes to [facility] yearly. Specialists: Dr Vasquez-boy Preferred Pharm[facility]: [id number] Benef[facility]:?yes LNOK: , Shabnam. Son, Heron Living Arrangements: Lives w/ in one-story home w/2 steps to enter. Independent prior to surgery. able to assist as needed, as well as son, who lives nearby. Transportation:?Pt drives. Family can assist. DME: ?Pt has a shower chair, RTS, and walker. Denies need for further DME. HHC/SNF: No hx of SNF. Has had HHC in the past after bilat knee surgery. No needs identified. Pt wishes to return home and states has no concerns with going home at time of discharge.?CM?to follow for any discharge planning/needs.? PLAN:??Home w/family support and discharge plans in place. Charlotte GAUTAMN?RN?CM
--- NOTE | 2024-03-06 13:27 | CASEMGMT ---
Addendum entered by Ruth Bennett 03/06/24 15:35: Received tc back from [facility] October, took phone into pt room and pt spoke with her. Pt states all of his questions were answered and denies further needs. Original Note: Received report that pt is interested in speaking to someone regarding prepaying should he need to stay another night in the hospital as he gets a discount for this. TC to registration who transferred to [facility]. Left message with this information on voicemail for pt with request for returned call. Updated pt.
[2024-03-06 15:50] VITALS: BP 147/59; PULSE 76; RESP 18; TEMP 36.8; O2SAT 97
[2024-03-06] MEDS: Bisacodyl 10 MG Suppository RC (18:20)
[2024-03-06 20:40] VITALS: BP 116/49; PULSE 74; RESP 18; TEMP 36.7; O2SAT 99
[2024-03-06] MEDS: Atorvastatin Calcium 20 MG Tablet PO (20:48)
[2024-03-07] MEDS: oxyCODONE 5 MG Tablet PO ×3 (02:42→11:36)
[2024-03-07 02:47] VITALS: BP 115/54; PULSE 77; RESP 18; TEMP 36.5; O2SAT 93
[2024-03-07] MEDS: Gabapentin 600 MG Tablet PO (04:21)
[2024-03-07] MEDS: Acetaminophen 500 MG Tablet 1000 MG PO (04:21)
[2024-03-07] MEDS: Methocarbamol 500 MG Tablet 1000 MG PO ×2 (04:21→11:35)
[2024-03-07] MEDS: Omega-3 Acid Ethyl Esters 1 GM Capsule PO (07:52)
[2024-03-07] MEDS: Senna/Docusate Sodium 1 Tablet 2 TABLET PO (07:52)
[2024-03-07] MEDS: Pantoprazole Sodium 40 MG Tablet PO (07:52)
[2024-03-07] MEDS: Meloxicam 15 MG Tablet PO (07:52)
[2024-03-07] MEDS: Multivitamins,Therapeutic Tablet 1 TABLET PO (07:52)
[2024-03-07] MEDS: Ensure Surgery 237 ML LIQUID PO (07:56)
[2024-03-07 08:19] VITALS: BP 128/71; PULSE 73; RESP 16; TEMP 36.3; O2SAT 97
[2024-03-07] MEDS: Morphine 2 MG/ML Syringe IV (09:13)
--- NOTE | 2024-03-07 12:19 | PHA.DC_ITS ---
Pharmacy [facility] Service has performed discharge medication reconciliation and counseling for this patient. The patient's discharge medication list was reviewed for discrepancies and discrepancies were resolved. The patient was counseled on the following discharge medications and changes in medications for homegoing were reviewed. 1. TYLENOL 2. MOBIC --> COUNSELLED TO STOP TAKING NAPROXEN 3. SENNA-S 4. OXYCODONE 5. ROBAXIN The Reason for Use, instructions for use, and potential side effects were reviewed for all new medications. The patient's questions regarding all of their medications were answered. The patient was able to verbally demonstrate an understanding of their discharge medications. Medications at Discharge Home Medications atorvastatin 20 mg tablet 20 mg PO DAILY HYPERLIDEMIA 01/23/24 multivitamin 1 tab PO DAILY SUPPLEMENT 01/23/24 omega-3 fatty acids 1,250 mg capsule 1,250 mg PO BID SUPPLEMENT 01/23/24 omeprazole 40 mg capsule,delayed release 40 mg PO DAILY GERD 01/23/24 gabapentin 300 mg capsule 600 mg PO TID NERVE PAIN 01/31/24 acetaminophen 500 mg tablet 500 mg PO Q6H #30 tabs 03/07/24 meloxicam 15 mg tablet 15 mg PO DAILY #30 tabs 03/07/24 methocarbamol 500 mg tablet 750 mg (1.5 x 500 mg) PO TID PRN spasms/pain #30 tabs 03/07/24 oxycodone 5 mg tablet 2.5 - 5 mg (0.5 - 1 x 5 mg) PO Q6H PRN pain 7 days #28 tabs 03/07/24 sennosides 8.6 mg-docusate sodium 50 mg tablet (Stimulant Laxative Plus) 2 tab PO BID PRN constipation #30 tabs 03/07/24
== END 2024-03-07 12:10 | disposition home or self-care (01) | DRG 454 ==
LOC: ACINP 15:19 → MS3 16:24
PROVIDERS: Anesthesiology; Student in an Organized Health Care Education/Training Program; Admitting Provider Orthopaedic Surgery Orthopaedic Surgery of the Spine; PCP Family Medicine; Referring Provider Orthopaedic Surgery Orthopaedic Surgery of the Spine; Visit Provider Family Medicine
PROC: 0SG10A0 Fusion of 2 or more Lumbar Vertebral Joints with Interbody Fusion Device, Anterior Approach, Anterior Column, Open Approach (ICD-10-PCS; principal; 2024-03-05 07:00)
DX: M43.16 Spondylolisthesis, lumbar region (principal); G95.9 Disease of spinal cord, unspecified; I73.9 Peripheral vascular disease, unspecified; M48.061 Spinal stenosis, lumbar region without neurogenic claudication; M21.371 Foot drop, right foot; E78.5 Hyperlipidemia, unspecified; K21.9 Gastro-esophageal reflux disease without esophagitis
CPT/HCPCS: 36415; 72100; 76000; 80048; 83735; 85027; 86703; 86706; 86708; 86803; 86850; 86900; 86901; 87081; 93005; 94668; 97116; 97162; 97166; C1713; J7120; A4216; J2405; J3475

== ENCOUNTER → 2024-04-10 | Outpatient (CLI) | payer MEDICARE, SELFPAY ==
--- NOTE | 2024-04-10 06:35 | MRI_ITS ---
STUDY: MRI CERVICAL SPINE WITHOUT CONTRAST REASON FOR EXAM: Male, 74 years old. Numbness in fingers and leg weakness. Balance issues. TECHNIQUE: Standardized fat and water weighted pulse sequences were obtained in the sagittal and axial planes. COMPARISON: Cervical spine radiographs 12/14/2023. FINDINGS: Normal foramen magnum and brainstem-cervical cord junction. Normal craniovertebral junction. Normal anterior atlantoaxial articulation. Normal odontoid process. Normal cervical lordosis. Mild old central compression fracture of the lower C3 vertebral body.. No recent fractures of the cervical spine. No focal signal abnormalities of the osseous elements of the cervical spine. C2-3: Normal endplates. Normal disc height, signal and morphology. Normal central canal and intervertebral neural foramina. C3-4: Normal C4 superior endplate. Mild old central compression fracture of the C3 inferior endplate. Prominent ventral extradural defect due to mild degenerative retrolisthesis of C3 on C4 and bone spur. This is causing mild central canal stenosis and mild flattening of the ventral cord surface but no definite cord compression. The AP canal diameter is 7 mm. Moderately pronounced stenosis of the left C3-C4 intervertebral neuroforamen and mild stenosis of the right C3-C4 intervertebral neuroforamen due to osteophytes arising from the uncovertebral joints. C4-5: Normal endplates. Normal disc height. Mild degenerative anterolisthesis of C4 on C5. Normal central canal and intervertebral neuroforamina. C5-6: Normal endplates. Normal disc height, signal and morphology. Normal central canal and intervertebral neural foramina. C6-7: Normal endplates. Pronounced disc space height narrowing. Mild ventral extradural defect due to posterior marginal spurs. Normal central canal and intervertebral neuroforamina. C7-T1: Normal endplates. Tiny Schmorl''s node in the T1 superior endplate. Mild disc space height narrowing. Minimal ventral extradural defect due to small posterior marginal spur. Normal central canal and intervertebral neuroforamina. T1-T2, T2-T3, T3-T4 and T4-T5: (Sagittal only). Normal endplates. Minimal disc space height narrowing. No ventral extradural defects. Normal central canal and intervertebral neuroforamina. Normal cervical cord. Normal upper thoracic spinal cord. Normal included portions of the midline brainstem and cerebellum. Normal visualized soft tissue structures. MRI/Spine Cervical (Routine) IMPRESSION: 1. Mild old central compression fracture of the C3 inferior endplate, mild flattening of the ventral cord surface due to degenerative retrolisthesis of C3 on C4 causing mild central canal stenosis with an AP canal diameter 7 mm. Moderately pronounced stenosis of the left C3-C4 intervertebral neuroforamen and mild stenosis of the right C3-C4 intervertebral neuroforamen due to osteophytes arising from the uncovertebral joints. 2. Mild degenerative anterolisthesis of C4-C5 but no associated spinal stenosis. 3. No MRI evidence of cervical extruded disc fragment or cervical disc protrusion. 4. Normal cervical spinal cord. Electronically Signed: Memo Goss MD at 8:36 EDT ,
== END | disposition home or self-care (01) ==
PROVIDERS: PCP Family Medicine; Referring Provider Orthopaedic Surgery Orthopaedic Surgery of the Spine; Visit Provider Orthopaedic Surgery Orthopaedic Surgery of the Spine
DX: G95.9 Disease of spinal cord, unspecified (principal)
CPT/HCPCS: 72141

== ENCOUNTER 2024-04-17 13:30 | Outpatient (RCR) | payer MEDICARE, SELFPAY | END 2024-04-17 19:00 | disposition home or self-care (01) | LOC: PT 13:30 | PROVIDERS: PCP Family Medicine; Referring Provider Orthopaedic Surgery Orthopaedic Surgery of the Spine; Visit Provider Orthopaedic Surgery Orthopaedic Surgery of the Spine | DX: Z98.1 Arthrodesis status (principal) | CPT/HCPCS: 97110; 97162 ==

== ENCOUNTER 2024-04-22 16:08 | Observation (INO) | payer MEDICARE, SELFPAY ==
[2024-04-22 16:09] VITALS: BP 186/88; PULSE 72; RESP 16; TEMP 36.5; O2SAT 99; BMI 30.9
[2024-04-22 16:17] VITALS: BP 155/84
[2024-04-22 16:20] VITALS: O2SAT 97
--- NOTE | 2024-04-22 16:40 | MRI_ITS ---
INDICATION: Fall with leg weakness and tingling EXAMINATION: MRI - MR Spine Lumbar W/O Contrast TECHNIQUE: Multiplanar and multisequence MR images of the lumbar spine. IV Contrast Dosage and Agent: None. COMPARISON: 01/23/2024 FINDINGS: VERTEBRAE: No acute fracture or pathologic marrow replacement. Interval lumbar surgery with posterior fusion hardware L2-L5. VERTEBRAL ALIGNMENT: No spondylolisthesis. There is preservation of the normal lumbar lordosis. CORD: Normal position and signal intensity of the conus medullaris. L1/L2: Normal disc height and morphology. Normal spinal canal, lateral recesses and neuroforamina. L2/L3: Circumferential annular bulge. Mild bilateral foraminal encroachment, no significant central stenosis. L3/L4: Circumferential annular bulge with bilateral facet joint hypertrophy. Mild bilateral foraminal stenosis, no significant central stenosis. L4/L5: Circumferential annular bulge with bilateral facet joint hypertrophy. Mild bilateral foraminal stenosis. No significant central stenosis. L5/S1: Circumferential annular bulge with bilateral facet joint hypertrophy. Moderate bilateral foraminal stenosis. No significant central stenosis. MRI/Spine Lumbar (Routine) IMPRESSION: Interval posterior lumbar fusion surgery with hardware L2-L5. Multilevel degenerative changes with foraminal stenoses as above. No acute bony injury. Electronically Signed: Pedrito Phillips MD at 18:50 EDT ,
--- NOTE | 2024-04-22 16:47 | EKG12_ITS ---
Test Reason : NEURO Blood Pressure : / mmHG Vent. Rate : 065 BPM Atrial Rate : 065 BPM P-R Int : 134 ms QRS Dur : 084 ms QT Int : 378 ms P-R-T Axes : -01 025 071 degrees QTc Int : 393 ms Normal sinus rhythm Normal ECG Confirmed by Francesco Ramirez ([id number]), avid editor JAMES GILLESPIE ([id number]) on 04/23/2024 9:33:44 AM Referred By: Confirmed By:Francesco Ramirez
--- NOTE | 2024-04-22 16:47 | EX.ED.DYSGE1 ---
HPI History of Present Illness Chief Complaint: Numb/Ting Narrative Narrative: 74-year-old male past medical history of lumbar fusion in February of this year, approximately 2 months ago/6 weeks ago, performed by Dr. Vasquez, presents status post fall and reports generalized weakness of his bilateral lower extremities, right greater than left. He relates history that he had an MRI of the cervical spine performed last week and is supposed to have surgery/fusion of the cervical area on Sunday by orthopedics. Today, he states that he has been experiencing weakness of his bilateral lower extremities, right greater than left which caused him to fall. He is to be able to transfer, but cannot even get out of a chair anymore secondary to weakness. He denies any fevers or chills, no loss of bowel or bladder or other red flag signs. He is not managing well at home because he is not even unable to get up and perform any ADLs after his fall. [facility] Medical History Wears glasses Alcohol use Arthritis Back pain Heartburn Gastric reflux Leg cramps History of edema Non-smoker Home Medications ?Medication ?Instructions ?Recorded ?Last Taken ?Type atorvastatin 20 mg tablet 20 mg PO DAILY HYPERLIDEMIA 01/23/24 03/04/24 21:00 History multivitamin 1 tab PO DAILY SUPPLEMENT 01/23/24 03/04/24 06:30 History omega-3 fatty acids 1,250 mg 1,250 mg PO BID SUPPLEMENT 01/23/24 04/21/24 History capsule omeprazole 40 mg capsule,delayed 40 mg PO DAILY GERD 01/23/24 03/05/24 04:30 History release gabapentin 300 mg capsule 600 mg PO TID NERVE PAIN 01/31/24 03/05/24 04:30 History acetaminophen 500 mg tablet 500 mg PO Q6H #30 tabs 03/07/24 Unknown Rx calcium 600 mg (as 1 tab PO DAILY 04/21/24 Unknown History carbonate)-vitamin D3 5 mcg (200 unit) tablet (Calcium 600 + D(3)) Allergy/AdvReac Type Severity Reaction Status Date / Time No Known Allergies Allergy Verified 04/22/24 16:10 Surgical History History of lumbar fusion History of colonoscopy History of back surgery History of knee replacement Social History (Updated 04/22/24 @ 19:[address] Sophy Sánchez MD) household members: spouse Smoking Status: Never smoker alcohol intake: current alcohol intake frequency: 0-2 drinks per day substance use type: does not use frequency: 1-2 times per week ROS ROS ED ROS Narrative Constitutional: No fever, no chills. Generalized weakness. HEENT: No sore throat. No neck pain. No loss of vision. No rhinorrhea. Cardiovascular: No chest pain. No palpitations. No pedal edema. Respiratory: No cough, no shortness of breath. Abdominal: No abdominal pain. No nausea. No vomiting. Genitourinary: No dysuria. No hematuria. Musculoskeletal: No myalgias. No arthralgias. Neurologic: No headaches. No dizziness. No lightheadedness. Bilateral lower extremity weakness, right greater than left. No loss of bowel or bladder. Skin: No rash. No change in color. Psychiatric: No depression. No anxiety. EXAM Physical Exam Narrative Exam Narrative: Afebrile. Vital signs noted. Nontoxic-appearing. Regular rate and rhythm. Lungs clear to auscultation bilaterally. Abdomen is soft and nontender with normal active bowel sounds. Pelvis is stable. Neurological examination shows him able to lift his arms above his head without difficulty. Neurovascular intact to bilateral upper extremities. Palpable radial pulses bilaterally. Examination of the bilateral lower extremity shows flexion extension of bilateral knees and hips intact. He does have mild weakness on the right as he is unable to hold up his leg off the bed for an extended period of time on the right. Palpable dorsalis pedis pulses bilaterally. Const Vital Signs: 04/22/24 16:09 04/22/24 16:17 04/22/24 16:20 Temperature 97.7 F L Temperature Source Oral Pulse Rate 72 Respiratory Rate 16 Respiratory Effort Normal Respiratory Depth Normal Respiratory Pattern Normal Blood Pressure 186/88 H 155/84 H Blood Pressure Mean 120 107 Pulse Ox 99 97 Oxygen Delivery Method Room Air 04/22/24 18:09 Temperature Temperature Source Pulse Rate 90 Respiratory Rate 16 Respiratory Effort Respiratory Depth Respiratory Pattern Blood Pressure 143/84 H Blood Pressure Mean 103 Pulse Ox 99 Oxygen Delivery Method Room Air MDM MDM MDM Narrative Medical decision making narrative: I reviewed the patient's prior outpatient record. He had cervical spine MRI performed last week, but he thought it was of his entire spine. I discussed the patient with his orthopedic surgeon, Dr. Vasquez who agrees with lumbar MRI, however, patient has been weak in the bilateral lower extremities since his surgery 6 weeks ago. I have very low suspicion for cauda equina syndrome or spinal cord compression. I will obtain baseline laboratories as I feel since he is unable to transfer and perform any ADLs that he will most likely require admission. I reviewed his laboratory work and he has normal white count of 9.1, hemoglobin normal 13.3, hematocrit 40.5, platelet count normal at 241. Electrolyte panel is grossly unremarkable except for AST slightly low at 11 which I think is nonspecific, urinalysis was obtained and reviewed and is negative for infection. I do not feel antibiotics are indicated. I reviewed the radiology report of the MRI of the lumbar spine and there is no acute bony injury, there are postsurgical changes and fusion at L2-L5 with foraminal stenosis. As there is nothing new, I do not feel that emergent consult to orthopedics/orthopedic spine is indicated. The patient was unable to stand independently in the emergency department. His family is now at the bedside, they state that he was told that even after fusion, he could experience increased weakness, and he may have an good weakness of his bilateral hands as well prior to surgery that is planned on his cervical spine for this coming Sunday. EKG was obtained and interpreted by myself independently as normal sinus rhythm at 65 bpm without ectopy or acute ST changes. No STEMI. As he is unable to perform his ADLs, I will discuss the patient with the hospitalist for observation versus admission. I discussed patient with Dr. Sánchez for observation on the general medical floor. Disposition is admit in stable condition. History & Record Review Discussion w/independent historian: Patient and Family Lab Data Attestation: I reviewed the patient's lab results. Labs: Laboratory Results - last 24 hr 04/22/24 04/22/24 16:40 18:14 WBC 9.1 RBC 4.40 L Hgb 13.3 Hct 40.5 MCV 92.0 MCH 30.2 MCHC 32.8 RDW Std Deviation 44.3 H RDW Coeff of [place] 13.1 Plt Count 241 MPV 9.8 Immature Gran % (Auto) 0.300 Neut % (Auto) 69.1 Lymph % (Auto) 19.5 [place] % (Auto) 9.9 Eos % (Auto) 1.1 Baso % (Auto) 0.1 Absolute Neuts (auto) 6.3 Absolute Lymphs (auto) 1.77 Nucleated RBC % 0 Sodium 140 Potassium 4.2 Chloride 105 Carbon Dioxide 29.0 Anion Gap 6 BUN 18 Creatinine 0.97 Estim Creat Clear Calc 78.20 Est GFR (MDRD) Af Amer 97 Est GFR (MDRD) Non-Af 80 BUN/Creatinine Ratio 18.6 Glucose 103 Calcium 9.9 Total Bilirubin 0.40 AST 11 L ALT 19 Alkaline Phosphatase 77 Total Protein 6.9 Albumin 3.8 Globulin 3.1 Albumin/Globulin Ratio 1.2 Urine Color Yellow Urine Clarity Clear Urine pH 6.0 Ur Specific [place] 1.015 Urine Protein Negative Urine Glucose (UA) Normal Urine Ketones Negative Urine Occult Blood Negative Urine Nitrite Negative Urine Bilirubin Negative Urine Urobilinogen Normal Ur Leukocyte Esterase Negative Urine RBC 0 SEEN Urine WBC 0-5 SEEN Ur Squamous Epith Cells 0 SEEN Urine Bacteria 0 SEEN Urine Mucus RARE Radiography Diagnostic Testing: Clinical Impression(s) from Imaging Studies Lumbar Spine MRI 04/22/24 16:40 IMPRESSION: Interval posterior lumbar fusion surgery with hardware L2-L5. Multilevel degenerative changes with foraminal stenoses as above. No acute bony injury. Electronically Signed: Pedrito Phillips MD at 18:50 EDT Reading Location ID and State: [facility] / ID Tel , Service support , Management Discussion w/another healthcare provider: Hospitalist (Dr. Sánchez, hospitalist medicine) and Organization Development Consultant (Dr. Vasquez, orthopedic spine) Discharge Plan Dx/Rx/DC Orders Clinical Impression: Spondylolisthesis, lumbar region, Bilateral leg weakness, Unable to stand up, Degenerative disc disease, cervical, Inability to perform activities of daily living Disposition Disposition: Acute Care [facility]
[2024-04-22 16:50] LABS: Absolute Lymphocyte Count 1.77 X10^3/uL (0.83-4.51); Absolute Neutrophil Count 6.3 X10^3/uL (2.0-7.7); Basophil# 0.01 X10^3/uL; Basophil% 0.1 % (0-1); Eosinophils% 1.1 % (0-5); Hematocrit 40.5 % (40-54); Hemoglobin 13.3 g/dL (13.0-16.5); Lymphocyte # 1.77 X10^3/ul (0.83-4.51); Lymphocyte % 19.5 % (19-41); Mean Corp Hgb Conc 32.8 g/dL (32-36); Mean Corpuscular Hgb 30.2 pg (27.0-32.0); Mean Platelet Vol. 9.8 fl (6.2-12.0); Monocyte% 9.9 % (0-10); NRBC Flagged by Analyzer 0 % (0-5); Neutrophil # 6.25 X10^3/uL (2.7-7.7); Neutrophil % 69.1 % (47-70); Platelet Count 241 K/mm3 (150-450); RBC Distribution Width CV 13.1 % (11.6-14.6); RBC Distribution Width SD 44.3 fl (35.1-43.9); White Blood Count 9.1 K/mm3 (4.4-11.0)
[2024-04-22 17:08] LABS: ALB/GLOB Ratio 1.2 RATIO (0.9-2.4); AST(SGOT) 11 U/L (15-37); Alanine Aminotransfer ALT/SGPT 19 U/L (16-61); Albumin, Serum 3.8 g/dL (3.2-5.0); Alkaline Phosphatase 77 U/L (45-117); Anion Gap 6 (5-15); BUN 18 mg/dL (7-18); BUN/Creat Ratio 18.6 RATIO (10-20); Calcium,Total 9.9 mg/dL (8.5-10.1); Chloride 105 mmol/L (98-107); Creatinine, Serum 0.97 mg/dL (0.70-1.30); EST Glomerular Filtration Rate 80 mL/min (>60); Est Glom Filt Rate - Afr Amer 97 mL/min (>60); Globulin 3.1 g/dL (2.2-4.2); Glucose 103 mg/dL (74-106); Potassium 4.2 mmol/L (3.5-5.1); Protein, Total 6.9 g/dL (6.4-8.2); Sodium Level 140 mmol/L (136-145)
[2024-04-22 18:09] VITALS: BP 143/84; PULSE 90; RESP 16; O2SAT 99
[2024-04-22 18:21] LABS: Bacteria 0 SEEN /hpf (None Seen); Red Blood Cells-Urine 0 SEEN /hpf (0-5); Squamous Epithelial Cells - UA 0 SEEN /hpf (0-5)
[2024-04-22 18:24] LABS: Color, Urine Yellow (Yellow); Glucose, Dipstick Normal (Normal); Ketone-Dipstick Negative (Negative); Leukocyte Esterase-Dipstick Negative /ul (Negative); Nitrite-Dipstick Negative (Negative); Occult Blood-Urine Negative /ul (Negative); Protein-Dipstick Negative (Negative); Specific Gravity, Urine 1.015 (1.002-1.030); Urine Bilirubin Dipstick Negative (Negative); Urine Clarity Clear (Clear); Urine Urobilinogen Normal (Normal)
[2024-04-22 18:43] LABS: Mucous, Urine RARE /hpf (<or=2+); White Blood Cells 0-5 SEEN /hpf (0-5)
--- NOTE | 2024-04-22 19:39 | PCM.HP.STD ---
HPI - General General Date of Admission: 04/22/24 Date of Service: 04/22/24 Chief Complaint: Debility, weakness, falls, back pain. HPI Narrative The patient is a 74 y/o M w/ PMHx: Obesity, GERD, HLD, Chronic back pain w/ L4-5 spondylolisthesis, L2-5 disc degeneration, stenosis with neurogenic claudication s/p 03/05/2024 L2-5 posterior percutaneous pedicle screw instrumented fusion, prone, L2-3 posterior spinal fusion, L2-5 posterior pedicle screw and mentation, L3-4 posterior fusion, L4-5 posterior fusion with allograft cancellous chips per Dr. Vasquez who now represents to the [facility] ED on 04/22/24 with history of recent generalized weakness of bilateral lower extremities, right related and left with recent outpatient MRI of the cervical spine the week prior with planned upcoming cervical surgery/fusion with Sunday presentation increased weakness causing him to fall with inability to even transfer prompting ED transition to be cautious with no fevers or chills or any loss of bowel or bladder. He notes that the pain has also worsened to his lower extremities and describes it as the painful sensation that comes after you are starting to recover from your limbs falling asleep and is worse when he has been less active and laying down or seated for a prolonged period of time rating it 6-8 out of 10 in severity but reports he is at a constant 3-4 over the last 2 weeks. He notes he was doing really well after surgery but things significantly worsened in the last 2 weeks and he reports he has had 5 falls over this timeline with worsening weakness and pain. From review of records recent outpatient imaging included 04/10/24 Cervical spine MRI w/ mild old central compression fracture of the C3 inferior endplate, mild flattening of the ventral cord surface due to degenerative retrolisthesis of C3 on C4 causing mild central canal stenosis with an AP canal diameter 7mm, moderately pronounced stenosis of the left C3-C4 intervertebral neuroforamen and mild stenosis of the right C3-C4 intervertebral neuroforamen due to osteophytes arising from the uncovertebral joints, mild degenerative anterolisthesis of C4-C5 but no associated spinal stenosis, no MRI evidence of cervical extruded disc fragment or cervical disc protrusion, normal cervical spinal cord. In addition to 04/14/24 cervical spine plain film w/ degenerative changes of the cervical spine with limited flexion noted. Work-up in the ED included T97.7, heart rate 72, BP 186/88, respiratory rate 16, 99% on room air with most recent repeat vitals heart rate 90, BP 143/84, respiratory rate 16, 99% on room air, CBC with WBC 9.1, hemoglobin 13.3, platelet 241 without marked shift, CMP unremarkable, urinalysis unremarkable with no evidence of UTI, lumbar spine MRI with interval posterior lumbar fusion surgery with hardware L2-L5, multilevel degenerative changes with foraminal stenosis, no acute bony injury. [facility] Medical History Wears glasses Alcohol use Arthritis Back pain Heartburn Gastric reflux Leg cramps History of edema Non-smoker Home Medications ?Medication ?Instructions ?Recorded ?Last Taken ?Type atorvastatin 20 mg tablet 20 mg PO DAILY HYPERLIDEMIA 01/23/24 03/04/24 21:00 History multivitamin 1 tab PO DAILY SUPPLEMENT 01/23/24 03/04/24 06:30 History omega-3 fatty acids 1,250 mg 1,250 mg PO BID SUPPLEMENT 01/23/24 04/21/24 History capsule omeprazole 40 mg capsule,delayed 40 mg PO DAILY GERD 01/23/24 03/05/24 04:30 History release gabapentin 300 mg capsule 600 mg PO TID NERVE PAIN 01/31/24 03/05/24 04:30 History acetaminophen 500 mg tablet 500 mg PO Q6H #30 tabs 03/07/24 Unknown Rx calcium 600 mg (as 1 tab PO DAILY 04/21/24 Unknown History carbonate)-vitamin D3 5 mcg (200 unit) tablet (Calcium 600 + D(3)) Allergy/AdvReac Type Severity Reaction Status Date / Time No Known Allergies Allergy Verified 04/22/24 16:10 Family History Mother , age 44 with metastatic breast CA. Breast cancer Aunt , age 55 from Breast CA. Breast cancer Father , age 60 from massive ID. CAD (coronary artery disease) Heart disease Hypertension Myocardial infarction Surgical History History of lumbar fusion History of colonoscopy History of back surgery History of knee replacement Social History household members: spouse Smoking Status: Never smoker alcohol intake: current alcohol intake frequency: 0-2 drinks per day substance use type: does not use frequency: 1-2 times per week ROS ROS Narrative Physical Examination: General: Awake, alert, oriented x 3 and cooperative, laying in the ED bed, rating pain 4-5 out of 10, constant to bilateral lower extremities thigh and down more distally again described as severe pain that occurs once limb start to wake up from having fallen asleep. Skin: Normal color, normal turgor, no icterus, no cyanosis. HEENT: AT/NC, EOMI, PERRLA, mildly dry MM, no carotid bruits or JVD noted. Lungs: Mildly diminished, greater bases, appropriate effort, no rales, ronchi or wheezing. Heart: Regular rate and rhythm; no gallop, rub audible. Abdomen: Soft, obese, NTTP, ND, mildly hyperactive BS, no HSM. Extremities: No cyanosis, no clubbing, mild ankle not markedly pitting edema bilaterally, significant discomfort to palpation, see above General. Neurological: Patient awake, alert, oriented as noted, cognitive function intact; pupils equally reactive to light and accommodation, cranial nerves gross normal, moving all 4 extremities, no focal deficits, sensation significantly altered with severe pain elicited with palpation of his lower extremities side downward, strength severely globally decreased primarily secondary to pain, difficult examination as severe pain with any touch to the legs. Psychiatric: Affect appears uncomfortable, fatigued, no acute evidence of depressive or anxiety feelings. Vital Signs Vital Signs Vital Signs: 04/22/24 16:09 04/22/24 16:17 04/22/24 16:20 Temperature 97.7 F L Temperature Source Oral Pulse Rate 72 Respiratory Rate 16 Respiratory Effort Normal Respiratory Depth Normal Respiratory Pattern Normal Blood Pressure 186/88 H 155/84 H Blood Pressure Mean 120 107 Pulse Ox 99 97 Oxygen Delivery Method Room Air 04/22/24 18:09 Temperature Temperature Source Pulse Rate 90 Respiratory Rate 16 Respiratory Effort Respiratory Depth Respiratory Pattern Blood Pressure 143/84 H Blood Pressure Mean 103 Pulse Ox 99 Oxygen Delivery Method Room Air Weight Weight: 221 lb 5.506 oz Body Mass Index (BMI) 30.9 Results Lab / Micro Data 04/22/24 16:40 04/22/24 16:40 Labs: Laboratory Results - last 24 hr 04/22/24 16:40: WBC 9.1, RBC 4.40 L, Hgb 13.3, Hct 40.5, MCV 92.0, MCH 30.2, MCHC 32.8, RDW Std Deviation 44.3 H, RDW Coeff of Mejia 13.1, Plt Count 241, MPV 9.8, Immature Gran % (Auto) 0.300, Neut % (Auto) 69.1, Lymph % (Auto) 19.5, Hind[place] % (Auto) 9.9, Eos % (Auto) 1.1, Baso % (Auto) 0.1, Absolute Neuts (auto) 6.3, Absolute Lymphs (auto) 1.77, Nucleated RBC % 0, Sodium 140, Potassium 4.2, Chloride 105, Carbon Dioxide 29.0, Anion Gap 6, BUN 18, Creatinine 0.97, Estim Creat Clear Calc 78.20, Est GFR (MDRD) Af Amer 97, Est GFR (MDRD) Non-Af 80, BUN/Creatinine Ratio 18.6, Glucose 103, Calcium 9.9, Total Bilirubin 0.40, AST 11 L, ALT 19, Alkaline Phosphatase 77, Total Protein 6.9, Albumin 3.8, Globulin 3.1, Albumin/Globulin Ratio 1.2 04/22/24 18:14: Urine Color Yellow, Urine Clarity Clear, Urine pH 6.0, Ur Specific [place] 1.015, Urine Protein Negative, Urine Glucose (UA) Normal, Urine Ketones Negative, Urine Occult Blood Negative, Urine Nitrite Negative, Urine Bilirubin Negative, Urine Urobilinogen Normal, Ur Leukocyte Esterase Negative, Urine RBC 0 SEEN, Urine WBC 0-5 SEEN, Ur Squamous Epith Cells 0 SEEN, Urine Bacteria 0 SEEN, Urine Mucus RARE Imaging Radiology Impression Lumbar Spine MRI 04/22/24 16:40 IMPRESSION: Interval posterior lumbar fusion surgery with hardware L2-L5. Multilevel degenerative changes with foraminal stenoses as above. No acute bony injury. Electronically Signed: Pedrito Phillips MD at 18:50 EDT , Assessment & Plan Assessment/Plan (1) Bilateral leg weakness: PLAN: Plan The patient is a 74 y/o M w/ PMHx: Obesity, GERD, HLD, Chronic back pain s/p 03/05/2024 L2-5 posterior percutaneous pedicle screw instrumented fusion, prone, L2-3 posterior spinal fusion, L2-5 posterior pedicle screw and mentation, L3-4 posterior fusion, L4-5 posterior fusion with allograft cancellous chips per Dr. Vasquez who now represents to the [facility] ED on 04/22/24 with history of recent generalized weakness of bilateral lower extremities, right related and left with recent outpatient MRI of the cervical spine the week prior with planned upcoming cervical surgery/fusion with Sunday presentation increased weakness causing him to fall with inability to even transfer prompting ED transition to be cautious with no fevers or chills or any loss of bowel or bladder. #1. Acute Intractable Back Pain on Chronic with progressively worsening BL LE weakness, R>L, lumbar and cervical disease known with increasing frequent falls, debility: Will admit to [facility], maintain on fall precautions, frequent positioning, initiate judicious IV toradol, lidocaine patches, tizanidine, medrol dose pack, po/IV narcotic pain regimen, anti-emetics, bowel regimen. Will consult PT and OT for evaluation as well as Case management for discharge planning. Dr. Vasquez aware and will be consulted. Patient cannot have surgery earlier than the 04/28. #2. Elevated BP above goal without history of hypertension: BP elevated in the ED without history, potentially secondary to presentation number 1, will continue to monitor to be cautious,. IV hydralazine in interim #3. Hyperlipidemia: We will continue patient on statin therapy. #4. GERD: Will continue patient on PPI. #5. Obesity: Weight loss and lifestyle changes encouraged. #6. DVT prophylaxis: SCDs, will defer chemoprophylaxis pending orthopedic surgery assessment to be cautious. #7 CODE status: Patient HCPNELSON is his who is and living will is currently in place. Discussed CODE status at length including difference between FULL code, DNR-CCA and DNR-CC status. Following discussions about the differences in these status, requested Full Code status. Charges/Coding Visit Charges Inpatient E&M: 20578 Init Hosp L2
[2024-04-22 20:01] VITALS: BP 159/71; PULSE 74; RESP 15; TEMP 36.4; O2SAT 96
[2024-04-22 20:32] LABS: Magnesium 1.9 mg/dL (1.6-2.6); Phosphorus 4.3 mg/dL (2.5-4.9)
[2024-04-22 21:03] VITALS: BP 153/66; PULSE 73; RESP 18; TEMP 36.6; O2SAT 97
[2024-04-22 21:04] VITALS: BMI 26.5
[2024-04-22] MEDS: 0.9% Saline Lock 10 ML Syringe IV (21:37)
[2024-04-22] MEDS: MethylPREDNISolone DosePak 4 MG BOX PO (21:37)
[2024-04-22] MEDS: Lidocaine 5% Patch 2 PATCH TOPICAL (21:41)
[2024-04-22] MEDS: Acetaminophen 500 MG Tablet 1000 MG PO (21:41)
[2024-04-22] MEDS: Ketorolac 15 MG/ML Vial IV (21:41)
[2024-04-22] MEDS: tiZANidine HCl 2 MG Tablet PO (21:44)
[2024-04-22] MEDS: Senna/Docusate Sodium 1 Tablet 2 TABLET PO (21:44)
[2024-04-23] MEDS: oxyCODONE 5 MG Tablet PO ×4 (01:27→17:30)
[2024-04-23 03:45] VITALS: BP 131/52; PULSE 69; RESP 18; TEMP 36.6; O2SAT 96
[2024-04-23] MEDS: Acetaminophen 500 MG Tablet 1000 MG PO ×3 (05:14→21:32)
[2024-04-23] MEDS: Ketorolac 15 MG/ML Vial IV ×3 (05:14→21:32)
[2024-04-23] MEDS: 0.9% Saline Lock 10 ML Syringe IV ×3 (05:15→21:34)
[2024-04-23 05:49] VITALS: BMI 26.6
[2024-04-23 06:04] LABS: Absolute Neutrophil Count 6.8 X10^3/uL (2.0-7.7); Basophil# 0.01 X10^3/uL; Basophil% 0.1 % (0-1); Hematocrit 40.4 % (40-54); Hemoglobin 13.1 g/dL (13.0-16.5); Lymphocyte % 9.3 % (19-41); Mean Corp Hgb Conc 32.4 g/dL (32-36); Mean Corpuscular Hgb 29.7 pg (27.0-32.0); Mean Corpuscular Volume 91.6 fL (80-94); Mean Platelet Vol. 10.3 fl (6.2-12.0); Monocyte# 0.06 X10^3/uL; Monocyte% 0.8 % (0-10); NRBC Flagged by Analyzer 0 % (0-5); Neutrophil # 6.75 X10^3/uL (2.7-7.7); Neutrophil % 89.5 % (47-70); Platelet Count 258 K/mm3 (150-450); RBC Distribution Width CV 13.1 % (11.6-14.6); RBC Distribution Width SD 44.4 fl (35.1-43.9); Red Blood Count 4.41 M/mm3 (4.6-6.2); White Blood Count 7.5 K/mm3 (4.4-11.0)
[2024-04-23] MEDS: Gabapentin 600 MG Tablet PO ×3 (06:08→21:31)
[2024-04-23] MEDS: Gabapentin 100 MG Capsule PO ×3 (06:08→21:31)
[2024-04-23 06:28] LABS: ALB/GLOB Ratio 1.1 RATIO (0.9-2.4); AST(SGOT) 14 U/L (15-37); Alanine Aminotransfer ALT/SGPT 16 U/L (16-61); Albumin, Serum 3.5 g/dL (3.2-5.0); Alkaline Phosphatase 75 U/L (45-117); Anion Gap 6 (5-15); BUN 21 mg/dL (7-18); BUN/Creat Ratio 21.4 RATIO (10-20); Calcium,Total 9.6 mg/dL (8.5-10.1); Chloride 107 mmol/L (98-107); Creatinine, Serum 0.98 mg/dL (0.70-1.30); EST Glomerular Filtration Rate 79 mL/min (>60); Est Glom Filt Rate - Afr Amer 96 mL/min (>60); Globulin 3.3 g/dL (2.2-4.2); Glucose 149 mg/dL (74-106); Potassium 4.5 mmol/L (3.5-5.1); Protein, Total 6.8 g/dL (6.4-8.2); Sodium Level 140 mmol/L (136-145)
[2024-04-23 08:10] VITALS: O2SAT 95
--- NOTE | 2024-04-23 09:06 | CASEMGMT ---
Social Work Pt has a living will and health care POA naming his Shabnam on file at [facility]. LILIBETH [place]
[2024-04-23 09:19] VITALS: PULSE 83; RESP 12; O2SAT 96
[2024-04-23] MEDS: MethylPREDNISolone DosePak 4 MG BOX PO (09:30)
[2024-04-23] MEDS: Atorvastatin Calcium 20 MG Tablet PO (09:32)
[2024-04-23] MEDS: Pantoprazole Sodium 40 MG Tablet PO (09:32)
--- NOTE | 2024-04-23 10:50 | CASEMGMT ---
LAURIE POTTER Assessment: Face to Face with pt for initial transition planning/care coordination assessment. LAURIE POTTER introduced self and role at [facility], pt voices understanding and consents to assessment. Pt is A&O x4 and answers all questions appropriately at this time. Pt sitting up in chair, just finished therapy with son and nephew at bedside. Pt agreeable to assessment with them present. Care providers, pharmacy, and demographics verified/updated. Admitting Dx: debility, falls, back pain Strata Score: 1 PCP:Ernestine Specialists:boy Vasquez [facility]acy: [facility]: [facility] Prescription Benefit: yes LNOK: Shabnam Tejada, ; Heron Tejada, son Living Arrangements: Pt lives with in a 2 story home with FFSU and a ramp to enter. Pt reports he is I in ADLs except his assists in lower body dressing and performs IADLs. Transportation: Pt has not driven since his last surgery in February. Pt transports him to [facility]. DME:rollator available, FWW, bars over toilet, shower chair HHC/SNF: Pt has had [facility] in the past, denies SNF stays. Pt states he was to have OR on Sunday. Pt states going home is not an option until surgery. Dr. Vasquez to consult. Pt hopes to stay in the hospital until Sunday for surgery. Pt states no further concerns/needs. CM to follow. Advised pt to ask CM if any further question/concerns/needs arise, voices understanding. Pt Goal: Have OR in hospital Sunday then return home Plan: TBD pending ortho consult Handoff given to CORA Luna RN, CM
--- NOTE | 2024-04-23 11:32 | MRI_ITS ---
STUDY: MRI BRAIN WITHOUT CONTRAST REASON FOR EXAM: Male, 74 years old. Lower extremity weakness TECHNIQUE: Multiplanar multisequence imaging of the brain was performed without the administration of intravenous contrast. COMPARISON: None. FINDINGS: The ventricles, cisterns, and sulci are prominent consistent with age-related volume loss. There is no restricted diffusion to suggest acute ischemia or infarction. No succeptibility artifict to suggest intracranial hemorrhage or mineralization. Major intracranial signal voids are preserved. There is scattered high T2/FLAIR signal seen in the periventricular deep white matter. There is no midline shift, mass effect, or extra axial fluid collections are seen. No CP angle or IAC mass is seen. The orbits are unremarkable. The sella turcica and craniovertebral junction are within normal limits. The visualized paranasal sinuses are clear. The mastoid air cells are clear. MRI/Brain without Contrast IMPRESSION: Chronic microvascular ischemic changes. No intracranial hemorrhage, acute infarct, or space occupying lesion seen on this noncontrast MRI of the brain. Electronically Signed: Pedrito Phillips MD at 16:44 EDT ,
[2024-04-23] MEDS: Polyethylene Glycol 3350 17 GM PACKET PO (11:48)
--- NOTE | 2024-04-23 12:16 | CASEMGMT ---
Discharge Planning A list of?SNF providers including quality and resource use data and consistent with the patient's preferred geographic region, medical needs, and insurance network was created in CarePort Guide.? This list was provided to the SW. Ammy Bustillo Discharge Planning Asst.
--- NOTE | 2024-04-23 14:14 | CONS.ORTHO ---
HPI Consult Data Date of Consult: 04/23/24 HPI Narrative HPI Narrative: JACKLYN WU, is a 74 M who presents s/p 03/05/2024 L2-5 posterior percutaneous pedicle screw instrumented fusion, prone, L2-3 posterior spinal fusion, L2-5 posterior pedicle screw and mentation, L3-4 posterior fusion, L4-5 posterior fusion with allograft cancellous chips per Dr. Vasquez who now represents to the [facility] ED on 04/22/24 with history of recent generalized weakness of bilateral lower extremities, right related and left with recent outpatient MRI of the cervical spine the week prior with planned upcoming cervical surgery/fusion on Sunday presentation for increased weakness causing him to fall with inability to even transfer prompting ED transition to be cautious with no fevers or chills or any loss of bowel or bladder. MRI on 04/22 does not show any evidence of cauda equina. [facility] Medical History Wears glasses Alcohol use Arthritis Back pain Heartburn Gastric reflux Leg cramps History of edema Non-smoker Home Medications ?Medication ?Instructions ?Recorded ?Last Taken ?Type atorvastatin 20 mg tablet 20 mg PO DAILY HYPERLIDEMIA 01/23/24 03/04/24 21:00 History multivitamin 1 tab PO DAILY SUPPLEMENT 01/23/24 03/04/24 06:30 History omega-3 fatty acids 1,250 mg 1,250 mg PO BID SUPPLEMENT 01/23/24 04/21/24 History capsule omeprazole 40 mg capsule,delayed 40 mg PO DAILY GERD 01/23/24 03/05/24 04:30 History release gabapentin 300 mg capsule 600 mg PO TID NERVE PAIN 01/31/24 03/05/24 04:30 History acetaminophen 500 mg tablet 500 mg PO Q6H #30 tabs 03/07/24 Unknown Rx calcium 600 mg (as 1 tab PO DAILY 04/21/24 Unknown History carbonate)-vitamin D3 5 mcg (200 unit) tablet (Calcium 600 + D(3)) Allergy/AdvReac Type Severity Reaction Status Date / Time No Known Allergies Allergy Verified 04/22/24 16:10 Family History Mother , age 44 with metastatic breast CA. Breast cancer Aunt , age 55 from Breast CA. Breast cancer Father , age 60 from massive [place]. CAD (coronary artery disease) Heart disease Hypertension Myocardial infarction Surgical History History of lumbar fusion History of colonoscopy History of back surgery History of knee replacement Social History household members: spouse Smoking Status: Never smoker alcohol intake: current alcohol intake frequency: 0-2 drinks per day substance use type: does not use frequency: 1-2 times per week Vital Signs Vital Signs Vital Signs: 04/22/24 16:09 04/22/24 16:17 04/22/24 16:20 Temperature 97.7 F L Temperature Source Oral Pulse Rate 72 Pulse Strength Respiratory Rate 16 Respiratory Effort Normal Respiratory Depth Normal Respiratory Pattern Normal Blood Pressure 186/88 H 155/84 H Blood Pressure Mean 120 107 Blood Pressure Source Blood Pressure Position Blood Pressure Location Pulse Ox 99 97 Oxygen Delivery Method Room Air 04/22/24 18:09 04/22/24 20:01 04/22/24 21:03 Temperature 97.5 F L 97.9 F Temperature Source Oral Pulse Rate 90 74 73 Pulse Strength Respiratory Rate 16 15 18 Respiratory Effort Respiratory Depth Respiratory Pattern Blood Pressure 143/84 H 159/71 H 153/66 H Blood Pressure Mean 103 100 95 Blood Pressure Source Monitor Blood Pressure Position Semi-Fowlers Blood Pressure Location Left Arm Pulse Ox 99 96 97 Oxygen Delivery Method Room Air Room Air 04/22/24 21:57 04/23/24 03:45 04/23/24 08:10 Temperature 97.9 F Temperature Source Oral Pulse Rate 69 Pulse Strength Respiratory Rate 18 Respiratory Effort Normal Non-Labored Respiratory Depth Normal Respiratory Pattern Normal Blood Pressure 131/52 H Blood Pressure Mean 78 Blood Pressure Source Monitor Blood Pressure Position Semi-Fowlers Blood Pressure Location Right Arm Pulse Ox 96 95 Oxygen Delivery Method Room Air Room Air 04/23/24 09:19 04/23/24 09:36 Temperature Temperature Source Pulse Rate 83 Pulse Strength Normal (2+) Respiratory Rate 12 Respiratory Effort Normal Non-Labored Respiratory Depth Normal Respiratory Pattern Normal Blood Pressure Blood Pressure Mean Blood Pressure Source Blood Pressure Position Blood Pressure Location Pulse Ox 96 Oxygen Delivery Method Room Air Weight Weight: 190 lb 7.67 oz Body Mass Index (BMI) 26.6 Lab / Micro Data 04/23/24 05:05 04/23/24 05:05 Labs: Laboratory Results - last 24 hr 04/22/24 16:40: WBC 9.1, RBC 4.40 L, Hgb 13.3, Hct 40.5, MCV 92.0, MCH 30.2, MCHC 32.8, RDW Std Deviation 44.3 H, RDW Coeff of [place] 13.1, Plt Count 241, MPV 9.8, Immature Gran % (Auto) 0.300, Neut % (Auto) 69.1, Lymph % (Auto) 19.5, [place] % (Auto) 9.9, Eos % (Auto) 1.1, Baso % (Auto) 0.1, Absolute Neuts (auto) 6.3, Absolute Lymphs (auto) 1.77, Nucleated RBC % 0, Sodium 140, Potassium 4.2, Chloride 105, Carbon Dioxide 29.0, Anion Gap 6, BUN 18, Creatinine 0.97, Estim Creat Clear Calc 78.20, Est GFR (MDRD) Af Amer 97, Est GFR (MDRD) Non-Af 80, BUN/Creatinine Ratio 18.6, Glucose 103, Calcium 9.9, Phosphorus 4.3, Magnesium 1.9, Total Bilirubin 0.40, AST 11 L, ALT 19, Alkaline Phosphatase 77, Total Protein 6.9, Albumin 3.8, Globulin 3.1, Albumin/Globulin Ratio 1.2 04/22/24 18:14: Urine Color Yellow, Urine Clarity Clear, Urine pH 6.0, Ur Specific [place] 1.015, Urine Protein Negative, Urine Glucose (UA) Normal, Urine Ketones Negative, Urine Occult Blood Negative, Urine Nitrite Negative, Urine Bilirubin Negative, Urine Urobilinogen Normal, Ur Leukocyte Esterase Negative, Urine RBC 0 SEEN, Urine WBC 0-5 SEEN, Ur Squamous Epith Cells 0 SEEN, Urine Bacteria 0 SEEN, Urine Mucus RARE 04/23/24 05:05: WBC 7.5, RBC 4.41 L, Hgb 13.1, Hct 40.4, MCV 91.6, MCH 29.7, MCHC 32.4, RDW Std Deviation 44.4 H, RDW Coeff of [place] 13.1, Plt Count 258, MPV 10.3, Immature Gran % (Auto) 0.300, Neut % (Auto) 89.5 H, Lymph % (Auto) 9.3 L, [place] % (Auto) 0.8, Eos % (Auto) 0.0, Baso % (Auto) 0.1, Absolute Neuts (auto) 6.8, Absolute Lymphs (auto) 0.70 L, Nucleated RBC % 0, Sodium 140, Potassium 4.5, Chloride 107, Carbon Dioxide 27.0, Anion Gap 6, BUN 21 H, Creatinine 0.98, Estim Creat Clear Calc 68.30, Est GFR (MDRD) Af Amer 96, Est GFR (MDRD) Non-Af 79, BUN/Creatinine Ratio 21.4 H, Glucose 149 H, Calcium 9.6, Total Bilirubin 0.50, AST 14 L, ALT 16, Alkaline Phosphatase 75, Total Protein 6.8, Albumin 3.5, Globulin 3.3, Albumin/Globulin Ratio 1.1 Imaging Radiology Impression Lumbar Spine MRI 04/22/24 16:40 IMPRESSION: Interval posterior lumbar fusion surgery with hardware L2-L5. Multilevel degenerative changes with foraminal stenoses as above. No acute bony injury. Electronically Signed: Pedrito Phillips MD at 18:50 EDT ,
[2024-04-23] MEDS: Ensure Plus High Protein 120 ML LIQUID PO ×2 (14:17→21:34)
--- NOTE | 2024-04-23 14:26 | CASEMGMT ---
Social Work SW received referral as pt is not able to return home at this time due to debility but surgery in not scheduled until 04/28. SW met with pt, pt's and pt's son Heron to discuss discharge plan. Per pt and family, surgery cannot be moved up from 04/28 however pt does not need to be hospitalized until 04/28. Pt has worked with therapy and is unable to return home at this time and pt is requesting SNF placement. A list of SNF providers including quality and resource use data and consistent with the patient?s preferred geographic region, medical needs, and insurance network were provided from the CarePort Guide. Pt preferred provider is [facility]. Referral made to TCU and SW will await determination of acceptance. Pt will need precert prior to admission to SNF. Plan: TCU, pending acceptance and precert LILIBETH Desir
[2024-04-23 14:55] VITALS: BP 131/67; PULSE 74; RESP 14; TEMP 37.2; O2SAT 97
--- NOTE | 2024-04-23 14:57 | PCM.PN.HOSP ---
Reason for Visit Reason for Visit: Diagnoses Other symptoms and signs involving the musculoskeletal system (04/22/24) Subjective Subjective Patient was seen and examined today, physical therapy states that the patient has very poor strength in his lower extremities, they would not recommend discharging the patient home at this time. I talked with the patient's spinal surgeon Dr. 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 I relayed this to Dr. Pedersen, Dr. Pedersen also told me that he is going to be out of town until next Sunday, the patient's cervical spine surgery is scheduled for next Sunday. I will have to determine whether the patient needs to go to a fpc in the meantime and come back for that surgery or stay in the hospital if he remains very weak. I elected to place him on IV Decadron and stop the oral steroid. Objective Data Objective Data Vital Signs: Vital Signs Temp Pulse Resp BP Pulse Ox O2 Del Method 97.9 F 83 12 131/52 H 96 Room Air 04/23/24 03:45 04/23/24 09:19 04/23/24 09:19 04/23/24 03:45 04/23/24 09:19 04/23/24 09:19 Oxygen Delivery Method Room Air Weight: 86.4 kg Body Mass Index (BMI) 26.6 Intake & Output: Intake and Output for Last 24 Hours 04/21/24 04/22/24 04/23/24 23:59 23:59 23:59 Intake Total 450 / 450 Output Total 300 / 300 475 / 475 Balance -300 / -300 -25 / -25 Lab / Micro Data 04/23/24 05:05 04/23/24 05:05 Labs: Laboratory Results - last 24 hr 04/22/24 16:40: WBC 9.1, RBC 4.40 L, Hgb 13.3, Hct 40.5, MCV 92.0, MCH 30.2, MCHC 32.8, RDW Std Deviation 44.3 H, RDW Coeff of Mejia 13.1, Plt Count 241, MPV 9.8, Immature Gran % (Auto) 0.300, Neut % (Auto) 69.1, Lymph % (Auto) 19.5, [place] % (Auto) 9.9, Eos % (Auto) 1.1, Baso % (Auto) 0.1, Absolute Neuts (auto) 6.3, Absolute Lymphs (auto) 1.77, Nucleated RBC % 0, Sodium 140, Potassium 4.2, Chloride 105, Carbon Dioxide 29.0, Anion Gap 6, BUN 18, Creatinine 0.97, Estim Creat Clear Calc 78.20, Est GFR (MDRD) Af Amer 97, Est GFR (MDRD) Non-Af 80, BUN/Creatinine Ratio 18.6, Glucose 103, Calcium 9.9, Phosphorus 4.3, Magnesium 1.9, Total Bilirubin 0.40, AST 11 L, ALT 19, Alkaline Phosphatase 77, Total Protein 6.9, Albumin 3.8, Globulin 3.1, Albumin/Globulin Ratio 1.2 04/22/24 18:14: Urine Color Yellow, Urine Clarity Clear, Urine pH 6.0, Ur Specific [place] 1.015, Urine Protein Negative, Urine Glucose (UA) Normal, Urine Ketones Negative, Urine Occult Blood Negative, Urine Nitrite Negative, Urine Bilirubin Negative, Urine Urobilinogen Normal, Ur Leukocyte Esterase Negative, Urine RBC 0 SEEN, Urine WBC 0-5 SEEN, Ur Squamous Epith Cells 0 SEEN, Urine Bacteria 0 SEEN, Urine Mucus RARE 04/23/24 05:05: WBC 7.5, RBC 4.41 L, Hgb 13.1, Hct 40.4, MCV 91.6, MCH 29.7, MCHC 32.4, RDW Std Deviation 44.4 H, RDW Coeff of Mejia 13.1, Plt Count 258, MPV 10.3, Immature Gran % (Auto) 0.300, Neut % (Auto) 89.5 H, Lymph % (Auto) 9.3 L, [place] % (Auto) 0.8, Eos % (Auto) 0.0, Baso % (Auto) 0.1, Absolute Neuts (auto) 6.8, Absolute Lymphs (auto) 0.70 L, Nucleated RBC % 0, Sodium 140, Potassium 4.5, Chloride 107, Carbon Dioxide 27.0, Anion Gap 6, BUN 21 H, Creatinine 0.98, Estim Creat Clear Calc 68.30, Est GFR (MDRD) Af Amer 96, Est GFR (MDRD) Non-Af 79, BUN/Creatinine Ratio 21.4 H, Glucose 149 H, Calcium 9.6, Total Bilirubin 0.50, AST 14 L, ALT 16, Alkaline Phosphatase 75, Total Protein 6.8, Albumin 3.5, Globulin 3.3, Albumin/Globulin Ratio 1.1 Radiography Diagnostic Testing: Radiology Impression Lumbar Spine MRI 04/22/24 16:40 IMPRESSION: Interval posterior lumbar fusion surgery with hardware L2-L5. Multilevel degenerative changes with foraminal stenoses as above. No acute bony injury. Electronically Signed: Pedrito Phillips MD at 18:50 EDT , Physical Exam Const alert, oriented x3, no apparent distress, average body habitus and healthy appearing General Appearance: cooperative, well kempt and well developed Orientation / Consciousness: awake, oriented to person, oriented to place and oriented to time HEENT normocephalic, head/scalp atraumatic and moist oral mucous membranes Eyes PERRL, EOMs intact bilaterally and conjunctivae normal Neck supple, no JVD, thyroid normal and no carotid bruits General: trachea midline Resp normal respiratory effort, no retractions, no use of accessory muscles and clear to auscultation bilaterally Auscultation: Negative for rales, rhonchi or wheezes Cardio regular rate, regular rhythm, S1 normal heart sound, S2 normal heart sound, no murmurs, no rub and no gallops GI normal to inspection, nondistended, normoactive bowel sounds, soft to palpation, non-tender and non-distended Extremity no clubbing, cyanosis or edema Skin no rashes or lesions noted General Skin Exam: no breakdown Neuro oriented x3, CN's II-XII intact bilaterally and no sensory deficits noted Neuro Narrative: Patient has lower extremity weakness bilaterally Sensorium / Orientation: awake, alert, oriented to person, oriented to place and oriented to time Speech: speech normal Psych affect normal Assessment & Plan Assessment/Plan (1) Inability to perform activities of daily living: PLAN: Plan 1. Acute debility due to lower extremity weakness-suspect secondary to degenerative disc disease of the cervical spine-PT and OT will continue to work with the patient, I have placed him on IV corticosteroids. I will have a discussion with the patient concerning discharge planning, it may be necessary to keep the patient in the hospital until his surgery on Sunday. Patient will have an MRI of the brain to rule out any intracranial pathology. 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 #4 GERD-patient is on omeprazole #5 hyperlipidemia-patient is on atorvastatin Total clinical time spent by myself addressing the patient's medical issues, reviewing all of his data, and collaborating with patient's care team: 35 minutes Charges/Coding Visit Charges Inpatient E&M: 06494 Subs Hosp L2
--- NOTE | 2024-04-23 15:23 | CONS.ORTHO ---
HPI Consult Data Date of Consult: 04/23/24 HPI Narrative HPI Narrative: JACKLYN WU, is a 74 M who presents with weakness and balance deficits with history of falls. Patient admitted for potential rehab placement due to difficulty maintaining independence at home. Patient is well-known to me and has undergone L2-L5 fusion in February and is scheduled to undergo a C3-5 ACDF on Sunday. Denies any significant neck injury with the falls or any whiplash is. Has minimal axial low back pain. Denies any radiating pain. He has baseline right lower extremity weakness. He says that his knee is buckled and he fell. His weakness in lower extremities and knee buckling started about 3 weeks ago and have been progressively getting worse. About 2 to 3 weeks after surgery patient had actually weaned off of the walker and was only using cane as an insurance rather than support. He somehow declined significantly in his function 2 to 3 weeks ago. His axial low back pain from the surgery has actually significantly improved. [facility] Medical History Wears glasses Alcohol use Arthritis Back pain Heartburn Gastric reflux Leg cramps History of edema Non-smoker Home Medications ?Medication ?Instructions ?Recorded ?Last Taken ?Type atorvastatin 20 mg tablet 20 mg PO DAILY HYPERLIDEMIA 01/23/24 03/04/24 21:00 History multivitamin 1 tab PO DAILY SUPPLEMENT 01/23/24 03/04/24 06:30 History omega-3 fatty acids 1,250 mg 1,250 mg PO BID SUPPLEMENT 01/23/24 04/21/24 History capsule omeprazole 40 mg capsule,delayed 40 mg PO DAILY GERD 01/23/24 03/05/24 04:30 History release gabapentin 300 mg capsule 600 mg PO TID NERVE PAIN 01/31/24 03/05/24 04:30 History acetaminophen 500 mg tablet 500 mg PO Q6H #30 tabs 03/07/24 Unknown Rx calcium 600 mg (as 1 tab PO DAILY 04/21/24 Unknown History carbonate)-vitamin D3 5 mcg (200 unit) tablet (Calcium 600 + D(3)) Allergy/AdvReac Type Severity Reaction Status Date / Time No Known Allergies Allergy Verified 04/22/24 16:10 Family History Mother , age 44 with metastatic breast CA. Breast cancer Aunt , age 55 from Breast CA. Breast cancer Father , age 60 from massive DC. CAD (coronary artery disease) Heart disease Hypertension Myocardial infarction Surgical History History of lumbar fusion History of colonoscopy History of back surgery History of knee replacement Social History household members: spouse Smoking Status: Never smoker alcohol intake: current alcohol intake frequency: 0-2 drinks per day substance use type: does not use frequency: 1-2 times per week Vital Signs Vital Signs Vital Signs: 04/22/24 16:09 04/22/24 16:17 04/22/24 16:20 Temperature 97.7 F L Temperature Source Oral Pulse Rate 72 Pulse Strength Respiratory Rate 16 Respiratory Effort Normal Respiratory Depth Normal Respiratory Pattern Normal Blood Pressure 186/88 H 155/84 H Blood Pressure Mean 120 107 Blood Pressure Source Blood Pressure Position Blood Pressure Location Pulse Ox 99 97 Oxygen Delivery Method Room Air 04/22/24 18:09 04/22/24 20:01 04/22/24 21:03 Temperature 97.5 F L 97.9 F Temperature Source Oral Pulse Rate 90 74 73 Pulse Strength Respiratory Rate 16 15 18 Respiratory Effort Respiratory Depth Respiratory Pattern Blood Pressure 143/84 H 159/71 H 153/66 H Blood Pressure Mean 103 100 95 Blood Pressure Source Monitor Blood Pressure Position Semi-Fowlers Blood Pressure Location Left Arm Pulse Ox 99 96 97 Oxygen Delivery Method Room Air Room Air 04/22/24 21:57 04/23/24 03:45 04/23/24 08:10 Temperature 97.9 F Temperature Source Oral Pulse Rate 69 Pulse Strength Respiratory Rate 18 Respiratory Effort Normal Non-Labored Respiratory Depth Normal Respiratory Pattern Normal Blood Pressure 131/52 H Blood Pressure Mean 78 Blood Pressure Source Monitor Blood Pressure Position Semi-Fowlers Blood Pressure Location Right Arm Pulse Ox 96 95 Oxygen Delivery Method Room Air Room Air 04/23/24 09:19 04/23/24 09:36 04/23/24 14:55 Temperature 98.9 F Temperature Source Oral Pulse Rate 83 74 Pulse Strength Normal (2+) Respiratory Rate 12 14 Respiratory Effort Normal Non-Labored Respiratory Depth Normal Respiratory Pattern Normal Blood Pressure 131/67 H Blood Pressure Mean 88 Blood Pressure Source Monitor Blood Pressure Position Semi-Fowlers Blood Pressure Location Left Arm Pulse Ox 96 97 Oxygen Delivery Method Room Air Room Air Weight Weight: 190 lb 7.67 oz Body Mass Index (BMI) 26.6 Physical Exam Narrative Lumbar incisions well-healed. Neurologic examination shows 5 x 5 power in all muscles in both upper extremities, grade 4 - in right lower extremity and grade 4+ on the left lower extremity. Lab / Micro Data 04/23/24 05:05 04/23/24 05:05 Labs: Laboratory Results - last 24 hr 04/22/24 16:40: WBC 9.1, RBC 4.40 L, Hgb 13.3, Hct 40.5, MCV 92.0, MCH 30.2, MCHC 32.8, RDW Std Deviation 44.3 H, RDW Coeff of Mejia 13.1, Plt Count 241, MPV 9.8, Immature Gran % (Auto) 0.300, Neut % (Auto) 69.1, Lymph % (Auto) 19.5, Becker % (Auto) 9.9, Eos % (Auto) 1.1, Baso % (Auto) 0.1, Absolute Neuts (auto) 6.3, Absolute Lymphs (auto) 1.77, Nucleated RBC % 0, Sodium 140, Potassium 4.2, Chloride 105, Carbon Dioxide 29.0, Anion Gap 6, BUN 18, Creatinine 0.97, Estim Creat Clear Calc 78.20, Est GFR (MDRD) Af Amer 97, Est GFR (MDRD) Non-Af 80, BUN/Creatinine Ratio 18.6, Glucose 103, Calcium 9.9, Phosphorus 4.3, Magnesium 1.9, Total Bilirubin 0.40, AST 11 L, ALT 19, Alkaline Phosphatase 77, Total Protein 6.9, Albumin 3.8, Globulin 3.1, Albumin/Globulin Ratio 1.2 04/22/24 18:14: Urine Color Yellow, Urine Clarity Clear, Urine pH 6.0, Ur Specific [place] 1.015, Urine Protein Negative, Urine Glucose (UA) Normal, Urine Ketones Negative, Urine Occult Blood Negative, Urine Nitrite Negative, Urine Bilirubin Negative, Urine Urobilinogen Normal, Ur Leukocyte Esterase Negative, Urine RBC 0 SEEN, Urine WBC 0-5 SEEN, Ur Squamous Epith Cells 0 SEEN, Urine Bacteria 0 SEEN, Urine Mucus RARE 04/23/24 05:05: WBC 7.5, RBC 4.41 L, Hgb 13.1, Hct 40.4, MCV 91.6, MCH 29.7, MCHC 32.4, RDW Std Deviation 44.4 H, RDW Coeff of Mejia 13.1, Plt Count 258, MPV 10.3, Immature Gran % (Auto) 0.300, Neut % (Auto) 89.5 H, Lymph % (Auto) 9.3 L, Becker % (Auto) 0.8, Eos % (Auto) 0.0, Baso % (Auto) 0.1, Absolute Neuts (auto) 6.8, Absolute Lymphs (auto) 0.70 L, Nucleated RBC % 0, Sodium 140, Potassium 4.5, Chloride 107, Carbon Dioxide 27.0, Anion Gap 6, BUN 21 H, Creatinine 0.98, Estim Creat Clear Calc 68.30, Est GFR (MDRD) Af Amer 96, Est GFR (MDRD) Non-Af 79, BUN/Creatinine Ratio 21.4 H, Glucose 149 H, Calcium 9.6, Total Bilirubin 0.50, AST 14 L, ALT 16, Alkaline Phosphatase 75, Total Protein 6.8, Albumin 3.5, Globulin 3.3, Albumin/Globulin Ratio 1.1 Imaging Radiology Impression Lumbar Spine MRI 04/22/24 16:40 IMPRESSION: Interval posterior lumbar fusion surgery with hardware L2-L5. Multilevel degenerative changes with foraminal stenoses as above. No acute bony injury. Electronically Signed: Pedrito Phillips MD at 18:50 EDT Reading Location ID and State: [address] [place] [address] Tel , Service support , Assessment & Plan Assessment/Plan (1) Cervical myelopathy: (2) Status post lumbar spinal fusion: PLAN: Plan Reviewed patient's recent x-rays and MRI of cervical lumbar spine. MRI lumbar spine repeated yesterday night does not show any new stenosis. Previous x-rays of lumbar spine show good alignment. Cervical spine shows C3-5 stenosis with cord compression without cord signal changes. Cerebellar atrophy noticed on the cervical MRI. Discussed with hospitalist regarding obtaining a brain MRI and potentially neurology consultation if found appropriate. At this point other than cervical cord compression, there does not seem to be any other source of progressive weakness and balance issues. I would like to proceed with C3-5 ACDF as scheduled on Sunday. Unfortunately, patient may need to be discharged to rehab and then brought in for the surgery on Sunday. Patient was in agreement. Charges/Coding Visit Charges Inpatient E&M: 16937 Init Hosp L3
--- NOTE | 2024-04-23 16:06 | CASEMGMT ---
Met with patient to complete DUMAS form. DUMAS form explained to patient who voiced understanding and signed form. Original form placed in pt?s chart and copy provided to patient. Ammy Bustillo, Discharge Planning Asst
--- NOTE | 2024-04-23 16:11 | CASEMGMT ---
Social Work TCU is able to accept pt and precert has been obtained. Physician updated and pt will be ready for dc tomorrow. SW met with pt and son (pt out of room) and informed of acceptance and plan for dc tomorrow. Family agreeable. Plan: TCU, when medically ready LILIB[facility] Desir
[2024-04-23] MEDS: Lactulose 20 GM/30 ML UDC 30 GM PO (17:28)
[2024-04-23] MEDS: dexAMETHasone 4 MG/ML Vial IV (17:30)
[2024-04-23 21:22] VITALS: BP 153/76; PULSE 67; RESP 17; TEMP 36.5; O2SAT 96
[2024-04-24] MEDS: 0.9% Saline Lock 10 ML Syringe IV (00:05)
[2024-04-24] MEDS: dexAMETHasone 4 MG/ML Vial IV ×3 (00:05→12:09)
[2024-04-24 03:22] VITALS: BP 156/76; PULSE 77; RESP 16; TEMP 36.6; O2SAT 96
[2024-04-24 04:42] VITALS: BMI 27.7
[2024-04-24] MEDS: Acetaminophen 500 MG Tablet 1000 MG PO (05:58)
[2024-04-24] MEDS: Gabapentin 600 MG Tablet PO (05:58)
[2024-04-24] MEDS: Gabapentin 100 MG Capsule PO (05:58)
[2024-04-24] MEDS: Ketorolac 15 MG/ML Vial IV (05:59)
[2024-04-24 08:01] VITALS: BP 133/70; PULSE 66; RESP 12; TEMP 36.6; O2SAT 98
[2024-04-24] MEDS: Polyethylene Glycol 3350 17 GM PACKET PO (08:04)
[2024-04-24] MEDS: Pantoprazole Sodium 40 MG Tablet PO (08:04)
[2024-04-24] MEDS: Atorvastatin Calcium 20 MG Tablet PO (08:04)
[2024-04-24 08:05] VITALS: O2SAT 96
[2024-04-24] MEDS: Ensure Plus High Protein 120 ML LIQUID PO (08:08)
[2024-04-24 08:11] VITALS: PULSE 66; O2SAT 98
--- NOTE | 2024-04-24 11:35 | TREXTCAR_ITS ---
Diet Diet Order/Speech Therapy: 04/23/24 11:45 Diet: Regular - General Food consistency:: Regular Liquid Consistency:: Regular/Thin Routine Orders/Code Status Code Status: Full Code Therapies Weight Bearing: Full weight bearing Physical Therapy: Eval and Treat Occupational Therapy: Eval and Treat Problem/Diagnosis (1) Cervical myelopathy: Status: Acute Code(s): G95.9 - Disease of spinal cord, unspecified (2) Status post lumbar spinal fusion: Status: Acute Code(s): Z98.1 - Arthrodesis status (3) Degenerative disc disease, cervical: Status: Acute Code(s): M50.30 - Other cervical disc degeneration, unspecified cervical region Plan 1. Acute debility due to lower extremity weakness-suspect secondary to degenerative disc disease of the cervical spine-PT and OT will continue to work with the patient, I have placed him on IV corticosteroids. I will have a discussion with the patient concerning discharge planning, it may be necessary to keep the patient in the hospital until his surgery on Sunday. Patient will have an MRI of the brain to rule out any intracranial pathology. 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 #4 GERD-patient is on omeprazole #5 hyperlipidemia-patient is on atorvastatin Total clinical time spent by myself addressing the patient's medical issues, reviewing all of his data, and collaborating with patient's care team: 35 minutes Allergies/Procedures Done in Hospital Allergies No Known Allergies Allergy (Verified 04/22/24 16:10) Procedures: None Type of Care/Length of Stay Estimated LOS: Convalescent Care Less Than 30 days Type of Care Needed: Skilled Rehab Potential: Good Prognosis: Good Additional Orders/Day of Discharge H&P will serve as current which was dated: 04/22/24 Day of Discharge: 04/24/24 Dietary and Speech Recommendations Dietitian Recommendations/Changes: Will liberalize diet to Regular to optimize oral intakes. Will discontinue ensure compact with medpass Will order 120mL ensure plus high protein 4x with medpass - strawberry Discharge Plan Admission Admit Date/Time: 04/22/24 19:39 Primary Reason for Your Visit: Lower extremity weakness due to cervical myelopathy Attending Provider: Tanner Lara Primary Care Provider: Celeste Sinha Consulting Providers: Carson Vasquez; Sophy Sánchez Instructions Additional Instructions / Restrictions: N.P.O. after 1 AM on 04/28/2024 Discharge Orders/Prescriptions Prescriptions: New acetaminophen 500 mg Tablet 1,000 mg PO Q8 Qty: 0 0RF melatonin 3 mg Tablet 3 mg PO QHS PRN PRN (Reason: Insomnia) Qty: 0 0RF oxycodone 5 mg Tablet 5 mg PO Q4H PRN PRN (Reason: Pain Score 4-10) 2 Days Qty: 6 0RF sennosides-docusate sodium [Stimulant Laxative Plus] 8.6-50 mg Tablet 2 tab PO BID PRN PRN (Reason: Constipation) Qty: 0 0RF prednisone 20 mg tablet 40 mg PO DAILY Qty: 8 0RF Rx Instructions: Start on 04/24/2024 Continued atorvastatin 20 mg tablet 20 mg PO DAILY omeprazole 40 mg capsule,delayed release(DR/EC) 40 mg PO DAILY multivitamin Tablet 1 tab PO DAILY gabapentin 300 mg capsule 600 mg PO TID calcium carbonate-vitamin D3 [Calcium 600 + D(3)] 600 mg-5 mcg (200 unit) tablet 1 tab PO DAILY Discontinued omega-3 fatty acids 1,250 mg capsule 1,250 mg PO BID acetaminophen 500 mg Tablet 500 mg PO Q6H Qty: 30 0RF Referrals / Follow Up: Celeste Sinha MD [Primary Care Provider] - Disposition Disposition (needs filled in before D/C Order can be placed): Senior Living Facility
--- NOTE | 2024-04-24 11:45 | PCM.DC.SUM ---
Providers Date of Admission: 04/22/24 Date of Discharge: 04/24/24 Primary Care Physician: Celeste Sinha MD Consultations 04/22/24 20:47 Consult: Orthopedics Routine Consulting Provider: Carson Vasquez Reason for Consult: Falls, debility, back pain EMERGENT Consult: No MD Notified: Yes Date Notified: 04/22/24 Time Notified: 19:42 Method of Notification: Verbal Reason For Visit: DEBILITY, FALLS, BACK PAIN Diagnosis Discharge Diagnosis (1) Cervical myelopathy: Status: Acute Code(s): G95.9 - Disease of spinal cord, unspecified (2) Status post lumbar spinal fusion: Status: Acute Code(s): Z98.1 - Arthrodesis status (3) Degenerative disc disease, cervical: Status: Acute Code(s): M50.30 - Other cervical disc degeneration, unspecified cervical region Plan 1. Acute debility due to lower extremity weakness-suspect secondary to degenerative disc disease of the cervical spine-PT and OT will continue to work with the patient, I have placed him on IV corticosteroids. I will have a discussion with the patient concerning discharge planning, it may be necessary to keep the patient in the hospital until his surgery on Sunday. Patient will have an MRI of the brain to rule out any intracranial pathology. 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 #4 GERD-patient is on omeprazole #5 hyperlipidemia-patient is on atorvastatin Total clinical time spent by myself addressing the patient's medical issues, reviewing all of his data, and collaborating with patient's care team: 35 minutes Medications at Discharge Home Medications atorvastatin 20 mg tablet 20 mg PO DAILY HYPERLIDEMIA 01/23/24 multivitamin 1 tab PO DAILY SUPPLEMENT 01/23/24 omeprazole 40 mg capsule,delayed release 40 mg PO DAILY GERD 01/23/24 gabapentin 300 mg capsule 600 mg PO TID NERVE PAIN 01/31/24 calcium 600 mg (as carbonate)-vitamin D3 5 mcg (200 unit) tablet (Calcium 600 + D(3)) 1 tab PO DAILY supplement 04/21/24 acetaminophen 500 mg tablet 1,000 mg (2 x 500 mg) PO Q8 pain #0 tabs 04/24/24 melatonin 3 mg tablet 3 mg PO QHS PRN PRN Insomnia #0 tabs 04/24/24 oxycodone 5 mg tablet 5 mg PO Q4H PRN PRN Pain Score 4-10 2 days #6 tabs 04/24/24 prednisone 20 mg tablet 40 mg (2 x 20 mg) PO DAILY inflammation/pain #8 tabs 04/24/24 sennosides 8.6 mg-docusate sodium 50 mg tablet (Stimulant Laxative Plus) 2 tab PO BID PRN PRN Constipation #0 tabs 04/24/24 Hospital Course Operations None Procedures None Summary of Care Provided Minutes Spent on Discharge: 31 Hospital Course: This 74-year-old white male was seen in the emergency room at [facility] with complaints of lower extremity weakness which had progressed over the last several days. He had a fall at home without significant injuries due to right and left lower leg weakness. Patient had a lumbar fusion performed approximately 2 months ago and he followed up with the spine surgeon who felt that the patient needed to undergo cervical decompression. Patient was placed send observation status on [facility] 3, he was seen in consultation by spine surgery and was seen by PT and OT, patient had an MRI of the brain performed to rule out any intracranial pathology-this imaging study was unremarkable. Physical therapy recommended that the patient undergo inpatient physical therapy in a senior care facility, [facility] agreed to [facility] patient and got insurance approval. On 04/24/2024, patient was seen and examined: On examination he appeared in good health and spirits. Vital signs as documented. Skin warm and dry and without overt rashes. Neck without JVD, neck was supple, trachea midline, thyroid was normal. Lungs clear bilaterally, normal air movement was noted. Heart exam notable for regular rhythm, normal sounds and absence of murmurs, rubs or gallops. Abdomen unremarkable and without evidence of organomegaly, masses, or abdominal aortic enlargement. Bowel sounds are present, abdomen is not distended. Extremities nonedematous, no cyanosis was noted, no clubbing was noted. Neuro: Cranial nerves II through XII are grossly intact, no focal motor deficits were noted, sensation to light touch and pinprick intact, motor exam 5/5 throughout. Psych: Patient is alert and oriented x3, he does not appear anxious or depressed, he does not appear agitated. Patient had some improvement with his lower extremity weakness during his hospitalization, he had been placed on IV corticosteroids. Patient was stable for transfer to TCU for short-term rehab services, he was due to have cervical spine surgery on 04/28/2024. Weight / BMI Weight Weight: 90.3 kg Body Mass Index (BMI) 27.7 ABG / Lab / Microbiology Data 04/23/24 05:05 04/23/24 05:05 Radiography Diagnostic Testing: Radiology Impression Brain MRI 04/23/24 11:32 IMPRESSION: Chronic microvascular ischemic changes. No intracranial hemorrhage, acute infarct, or space occupying lesion seen on this noncontrast MRI of the brain. Electronically Signed: Pedrito Phillips MD at 16:44 EDT , Meaningful Use Info Meaningful Use Meaningful Use Diagnoses (Choose all that apply): None applicable Ischemic Stroke Statin Dosing Therapy Reference: STATIN DOSE THERAPY REFERENCE: * Patients > 75 years receive moderate or high dose statin therapy. * Patients 75 years or YOUNGER should receive HIGH intensity statin dose unless contraindicated. You will be required to document reason for non-treatment if statin daily dose does not meet guidelines. HIGH DOSE STATIN THERAPY DAILY Atorvastatin > than or = to 40 mg Rosuvastatin > than or = to 20 mg Amlodipine + Atorvastatin > than or = to 2.5/40 mg Ezetimibe + Simvastatin 10/80 mg Simvastatin 80mg Discharge Plan Admission Admit Date/Time: 04/22/24 19:39 Primary Reason for Your Visit: Lower extremity weakness due to cervical myelopathy Attending Provider: Tanner Lara Primary Care Provider: Celeste Sinha Consulting Providers: Carson Vasquez; Sophy Sánchez Instructions Additional Instructions / Restrictions: N.P.O. after 1 AM on 04/28/2024 Discharge Orders/Prescriptions Prescriptions: New acetaminophen 500 mg Tablet 1,000 mg PO Q8 Qty: 0 0RF melatonin 3 mg Tablet 3 mg PO QHS PRN PRN (Reason: Insomnia) Qty: 0 0RF oxycodone 5 mg Tablet 5 mg PO Q4H PRN PRN (Reason: Pain Score 4-10) 2 Days Qty: 6 0RF sennosides-docusate sodium [Stimulant Laxative Plus] 8.6-50 mg Tablet 2 tab PO BID PRN PRN (Reason: Constipation) Qty: 0 0RF prednisone 20 mg tablet 40 mg PO DAILY Qty: 8 0RF Rx Instructions: Start on 04/24/2024 Continued atorvastatin 20 mg tablet 20 mg PO DAILY omeprazole 40 mg capsule,delayed release(DR/EC) 40 mg PO DAILY multivitamin Tablet 1 tab PO DAILY gabapentin 300 mg capsule 600 mg PO TID calcium carbonate-vitamin D3 [Calcium 600 + D(3)] 600 mg-5 mcg (200 unit) tablet 1 tab PO DAILY Discontinued omega-3 fatty acids 1,250 mg capsule 1,250 mg PO BID acetaminophen 500 mg Tablet 500 mg PO Q6H Qty: 30 0RF Referrals / Follow Up: Celeste Sinha MD [Primary Care Provider] - Disposition Disposition (needs filled in before D/C Order can be placed): [facility] Charges/Coding Visit Charges Inpatient E&M: 57736 Disch Hosp >30min
--- NOTE | 2024-04-24 12:27 | CASEMGMT ---
Social Work Per physician, pt is ready for dc to TCU today. DC orders faxed to TCU and Sherrie in TCU notified of dc today. SW met with pt and his and questions answered. Nursing updated. Disposition: TCU, skilled level of care LIL[facility] Desir
[2024-04-24 12:43] VITALS: BP 152/71; PULSE 69; RESP 16; TEMP 36.4; O2SAT 95
== END 2024-04-24 14:35 | disposition skilled nursing facility (03) ==
LOC: ED 19:45 → MS3 20:05
PROVIDERS: Admitting Provider Family Medicine; Emergency Provider Emergency Medicine; PCP Family Medicine; Visit Provider Internal Medicine
DX: M50.01 Cervical disc disorder with myelopathy, high cervical region (principal); R53.81 Other malaise; E78.5 Hyperlipidemia, unspecified; G89.29 Other chronic pain; E66.9 Obesity, unspecified; Z98.1 Arthrodesis status; M43.16 Spondylolisthesis, lumbar region; K21.9 Gastro-esophageal reflux disease without esophagitis; Z79.899 Other long term (current) drug therapy; Z68.30 Body mass index [BMI] 30.0-30.9, adult; R03.0 Elevated blood-pressure reading, without diagnosis of hypertension
CPT/HCPCS: 36415; 70551; 72148; 80053; 81001; 83735; 84100; 85025; 93005; 94668; 96374; 96375; 96376; 97116; 97162; 97166; 97530; 97802; 99221; 99285; A4216; G0378

== ENCOUNTER 2024-04-24 14:48 | Inpatient (IN) | payer MEDICARE, SELFPAY ==
[2024-04-24 15:02] VITALS: BP 146/73; PULSE 69; RESP 16; TEMP 36.2; O2SAT 98; BMI 30.2
[2024-04-24] MEDS: Ensure Plus High Protein 120 ML LIQUID PO (17:59)
[2024-04-24] MEDS: oxyCODONE 5 MG Tablet PO ×2 (17:59→21:56)
--- NOTE | 2024-04-24 20:53 | HP.PCM_ITS ---
HPI - General General Date of Admission: 04/24/24 Date of Service: 04/24/24 Chief Complaint: Here for rehabilitation. HPI Narrative 04/22/2024JOHNATHAN WU, is a 74 M who presents to [facility] ED with numbness/tingling. Dr. Vasquez performed lumbar fusion 03/05/2024. He was able to play 18 holes of golf twice per week, riding in golf cart, throughout the summer. Fell, weakness of bilateral lower extremities, right worse than left, had bilateral leg weakness prior to fall. Had MRI cervical spine, scheduled for cervical fusion surgery 04/28/2024. Unable to get out of chair. MRI LS spine shows post surgical changes, no acute findings. Unsafe to go home. 04/22/2024 Admit [facility]. Pain control, PT/OT, oral steroids, Dr. Vasquez consult for low back pain, weakness of legs. Hydralazine iv prn elevated blood pressure. 04/23/2024 Weakness of legs 2/[address] Vasquez planning cervical fusion 04/28/2024. IV decadron instead of oral prednisone. MRI brain negative for acute findings. 04/23/2024 Dr. Vasquez notes weakness of legs 2/2 C3-5 stenosis with cord compression, planning C3-5 ACDF (Anterior cervical discectomy fusion) 04/28/2024. Transfer to TCU. 04/24/2024 Admit to TCU with debility, here for rehabilitation, strengthening, prior to cervical spine surgery 04/28/2024. [facility] Medical History Wears glasses Alcohol use Arthritis Back pain Heartburn Gastric reflux Leg cramps History of edema Non-smoker Home Medications ?Medication ?Instructions ?Recorded ?Last Taken ?Type atorvastatin 20 mg tablet 20 mg PO DAILY HYPERLIDEMIA 01/23/24 03/04/24 21:00 History multivitamin 1 tab PO DAILY SUPPLEMENT 01/23/24 03/04/24 06:30 History omeprazole 40 mg capsule,delayed 40 mg PO DAILY GERD 01/23/24 03/05/24 04:30 History release gabapentin 300 mg capsule 600 mg PO TID NERVE PAIN 01/31/24 03/05/24 04:30 History calcium 600 mg (as 1 tab PO DAILY supplement 04/21/24 Unknown History carbonate)-vitamin D3 5 mcg (200 unit) tablet (Calcium 600 + D(3)) acetaminophen 500 mg tablet 1,000 mg (2 x 500 mg) PO Q8 pain 04/24/24 Unknown Rx #0 tabs melatonin 3 mg tablet 3 mg PO QHS PRN PRN Insomnia #0 04/24/24 Unknown Rx tabs oxycodone 5 mg tablet 5 mg PO Q4H PRN PRN Pain Score 04/24/24 Unknown Rx 4-10 2 days #6 tabs prednisone 20 mg tablet 40 mg (2 x 20 mg) PO DAILY 04/24/24 Unknown Rx inflammation/pain #8 tabs sennosides 8.6 mg-docusate sodium 2 tab PO BID PRN PRN Constipation 04/24/24 Unknown Rx 50 mg tablet (Stimulant Laxative #0 tabs Plus) Allergy/AdvReac Type Severity Reaction Status Date / Time No Known Allergies Allergy Verified 04/22/24 16:10 Family History Mother , age 44 with metastatic breast CA. Breast cancer Aunt , age 55 from Breast CA. Breast cancer Father , age 60 from massive [place]. CAD (coronary artery disease) Heart disease Hypertension Myocardial infarction Surgical History History of lumbar fusion History of colonoscopy History of back surgery History of knee replacement Social History household members: spouse Smoking Status: Never smoker alcohol intake: current alcohol intake frequency: 0-2 drinks per day substance use type: does not use frequency: 1-2 times per week ROS Constitutional Constitutional: Reports weakness; Denies chills, fever(s) or weight gain ENT HEENT: Denies headache(s), nasal congestion or nasal discharge Cardiovascular Cardiovascular: Denies chest pain or palpitations Respiratory/Chest Respiratory/Chest: Denies cough, excessive phlegm production or shortness of breath with exertion Gastrointestinal Gastrointestinal: Denies abdominal pain, nausea or vomiting Genitourinary Genitourinary: Denies dysuria Musculoskeletal Musculoskeletal: Denies joint pain or joint swelling Integumentary Integumentary: Denies rash or wounds Neurologic Neurologic: Denies focal weakness, numbness or tingling Psychiatric Psychiatric: Denies anxiety, auditory hallucinations, depression, homicidal ideation or suicidal ideation Vital Signs Vital Signs Vital Signs: 04/24/24 15:02 04/24/24 15:02 Temperature 97.1 F L Temperature Source Temporal Pulse Rate 69 69 Pulse Rhythm Regular Pulse Strength Normal (2+) Respiratory Rate 16 16 Respiratory Effort Normal Non-Labored Respiratory Depth Normal Respiratory Pattern Normal Blood Pressure 146/73 H Blood Pressure Mean 97 Blood Pressure Source Monitor Blood Pressure Position Sitting Blood Pressure Location Right Arm Pulse Ox 98 98 Oxygen Delivery Method Room Air Room Air Weight Weight: 98.515 kg Body Mass Index (BMI) 30.2 Physical Exam Const alert General Appearance: cooperative HEENT normocephalic Eyes PERRL and EOMs intact bilaterally Neck supple, no JVD and no carotid bruits Resp normal respiratory effort, normal air movement and clear to auscultation bilaterally Cardio regular rate and regular rhythm GI normal to inspection, nondistended, normoactive bowel sounds, non-tender and non-distended Extremity normal capillary refill General Extremity: Negative for edema Skin no rashes or lesions noted General Skin Exam: no breakdown Neuro moves all extremities Neuro Narrative: Bilateral upper extremity weakness, left worse than right. Bilateral lower extremity weakness. Psych affect normal Appearance: appropriate Assessment & Plan Assessment/Plan (1) Debility: (2) Bilateral leg weakness: (3) Cervical spinal stenosis: (4) Status post lumbar spinal fusion: (5) Low back pain: (6) Hyperlipidemia: (7) GERD (gastroesophageal reflux disease): (8) Neuropathic pain: PLAN: Plan 74 year old male with below past medical history significant for recent lumbar fusion surgery, hospitalized for bilateral leg weakness 2/2 cervical spinal stenosis, admitted to TCU with debility, here for rehabilitation, strengthening, prior to cervical spinal surgery 04/28/[address] Vasquez. * Debility - PT/OT. * Pain - Tylenol 1000mg q8, Oxycodone 5mg q4 prn pain (4-10). * Bowel - senna/colace 2 tablets bid prn. * Adult immunization - Administer pneumonia vaccine, covid vaccine, flu vaccine as appropriate. * DVT prophylaxis - Hold, upcoming surgery. * Hyperlipidemia - Atorvastatin 20mg qhs. * Calcium deficiency - Calcium D 1 tablet daily. * Nutrition - Ensure Plus 120mL tidcm, MVI 1 tablet daily. * Neuropathic pain - Gabapentin 600mg tid. * Insomnia - Melatonin 3mg qhs prn. * GERD - Pantoprazole 40mg daily. * Cervical spinal stenosis - Prednisone 40mg daily, Dr. Vasquez planning C3-5 ACDF 04/28/2024.
[2024-04-24] MEDS: Acetaminophen 500 MG Tablet 1000 MG PO (21:49)
[2024-04-24] MEDS: Gabapentin 300 MG Capsule 600 MG PO (21:49)
[2024-04-24] MEDS: MELATONIN 3 MG TABLET PO (21:50)
[2024-04-24] MEDS: 0.9% Saline Lock 10 ML Syringe IV (21:52)
[2024-04-25] MEDS: Gabapentin 300 MG Capsule 600 MG PO ×3 (05:21→22:11)
[2024-04-25] MEDS: Acetaminophen 500 MG Tablet 1000 MG PO ×3 (05:21→22:12)
[2024-04-25 05:53] LABS: Absolute Neutrophil Count 9.5 X10^3/uL (2.0-7.7); Basophil# 0.01 X10^3/uL; Basophil% 0.1 % (0-1); Hemoglobin 12.8 g/dL (13.0-16.5); Lymphocyte % 11.1 % (19-41); Mean Corp Hgb Conc 33.7 g/dL (32-36); Mean Corpuscular Hgb 30.4 pg (27.0-32.0); Mean Corpuscular Volume 90.3 fL (80-94); Mean Platelet Vol. 10.8 fl (6.2-12.0); Monocyte# 0.82 X10^3/uL; NRBC Flagged by Analyzer 0 % (0-5); Neutrophil # 9.53 X10^3/uL (2.7-7.7); Neutrophil % 81.2 % (47-70); Platelet Count 271 K/mm3 (150-450); RBC Distribution Width CV 13.1 % (11.6-14.6); RBC Distribution Width SD 43.1 fl (35.1-43.9); Red Blood Count 4.21 M/mm3 (4.6-6.2); White Blood Count 11.7 K/mm3 (4.4-11.0)
[2024-04-25 06:13] LABS: Anion Gap 5 (5-15); BUN 30 mg/dL (7-18); Calcium,Total 9.6 mg/dL (8.5-10.1); Chloride 104 mmol/L (98-107); Creatinine, Serum 0.97 mg/dL (0.70-1.30); EST Glomerular Filtration Rate 80 mL/min (>60); Est Glom Filt Rate - Afr Amer 97 mL/min (>60); Estimated Creatinine Clearance 77.51 ml/min; Glucose 111 mg/dL (74-106); Potassium 4.2 mmol/L (3.5-5.1); Sodium Level 137 mmol/L (136-145)
[2024-04-25] MEDS: Multivitamins,Therapeutic Tablet 1 TABLET PO (08:27)
[2024-04-25] MEDS: predniSONE 20 MG Tablet 40 MG PO (08:27)
[2024-04-25] MEDS: Calcium Carb/Vitamin D 1 TABLET Tablet PO (08:28)
[2024-04-25] MEDS: Atorvastatin Calcium 20 MG Tablet PO (08:28)
[2024-04-25] MEDS: Pantoprazole Sodium 40 MG Tablet PO (08:28)
[2024-04-25] MEDS: Ensure Plus High Protein 120 ML LIQUID PO ×3 (08:30→16:17)
[2024-04-25] MEDS: oxyCODONE 5 MG Tablet PO ×2 (08:36→22:16)
[2024-04-25] MEDS: Senna/Docusate Sodium 1 Tablet 2 TABLET PO ×2 (08:38→22:16)
--- NOTE | 2024-04-25 09:38 | NURSING ---
Call from surgery about MRSA swab and type and cross that need done before Sunday. Reported lab should be able to see them in surgical V#. Gave orders for resident to be NPO and to take gabapentin and omeprazole day of surgery, no other meds. Called lab and spoke to Nati, she said she will pull orders and have them completed. TCU will complete MRSA swab.
--- NOTE | 2024-04-25 10:47 | NURSING ---
Mems Process Engineer Note; Activity Asset: Germania Laboy is independent in his choice of daily activities with reminders. He will read and watch tv but prefers to be outside on his mower. helped answer most of his activity question as he stated he just dose not remember like he use too. He likes talking about his time in the [place] just needs extra time to talk and remember some of the details. will be in daily and bring him items he may want. He welcomes visits from the hothouse worker and therapy dog. Staff will remind him of weekly activities and respect his right to say no.
[2024-04-25] MEDS: Tuberculin,Purif.prot.deriv. 50 TU/ML Vial 0.1 ML ID (11:47)
[2024-04-25] MEDS: FLU VACCINE **HIGH DOSE** TV 24-25 180 MCG/0.5 ML SYRINGE IM (11:49)
--- NOTE | 2024-04-25 12:07 | CASEMGMT ---
Social Work SW met with patient to complete initial assessment. Introduced self and role. , THOMAS and CRISSY present in room and pt granted permission for SW to complete assessment. Pt has had routine visitors since admission. pt has a planned procedure 04/28. SW educated to precert process and current approval from [facility] insurance. SW will assist with DC planning. Pt confirmed code status as full code. SW explained the advanced directives on file are not valid d/t not having addresses or phone numbers of the agents listed. SW offered to complete new documents, especially with upcoming procedure. Pt and agreed. SW to return to complete. Pt appreciative. Jenna Tirado, ORGAN TUNER OIL SPOT WASHER
--- NOTE | 2024-04-25 13:50 | DS.PCM_ITS ---
Providers Date of Admission: 04/24/24 Primary Care Physician: Celeste Sinha MD Reason For Visit: DIBILITY, FALLS, BACK PAIN Diagnosis Discharge Diagnosis (1) Debility: Status: Acute Code(s): R53.81 - Other malaise (2) Bilateral leg weakness: Status: Acute Code(s): R29.898 - Other symptoms and signs involving the musculoskeletal system (3) Cervical spinal stenosis: Status: Acute Code(s): M48.02 - Spinal stenosis, cervical region (4) Status post lumbar spinal fusion: Status: Acute Code(s): Z98.1 - Arthrodesis status (5) Low back pain: Status: Acute Code(s): M54.50 - Low back pain, unspecified (6) Hyperlipidemia: Status: Acute Code(s): E78.5 - Hyperlipidemia, unspecified (7) GERD (gastroesophageal reflux disease): Status: Acute Code(s): K21.9 - Gastro-esophageal reflux disease without esophagitis (8) Neuropathic pain: Status: Acute Code(s): M79.2 - Neuralgia and neuritis, unspecified Plan 74 year old male with below past medical history significant for recent lumbar fusion surgery, hospitalized for bilateral leg weakness 2/2 cervical spinal stenosis, admitted to TCU with debility, here for rehabilitation, strengthening, prior to cervical spinal surgery 04/28/[address] Vasquez. * Debility - PT/OT. * Pain - Tylenol 1000mg q8, Oxycodone 5mg q4 prn pain (4-10). * Bowel - senna/colace 2 tablets bid prn. * Adult immunization - Administer pneumonia vaccine, covid vaccine, flu vaccine as appropriate. * DVT prophylaxis - Hold, upcoming surgery. * Hyperlipidemia - Atorvastatin 20mg qhs. * Calcium deficiency - Calcium D 1 tablet daily. * Nutrition - Ensure Plus 120mL tidcm, MVI 1 tablet daily. * Neuropathic pain - Gabapentin 600mg tid. * Insomnia - Melatonin 3mg qhs prn. * GERD - Pantoprazole 40mg daily. * Cervical spinal stenosis - Prednisone 40mg daily, Dr. Vasquez planning C3-5 ACDF 04/28/2024. Medications at Discharge Home Medications atorvastatin 20 mg tablet 20 mg PO DAILY HYPERLIDEMIA 01/23/24 multivitamin 1 tab PO DAILY SUPPLEMENT 01/23/24 omeprazole 40 mg capsule,delayed release 40 mg PO DAILY GERD 01/23/24 gabapentin 300 mg capsule 600 mg PO TID NERVE PAIN 01/31/24 calcium 600 mg (as carbonate)-vitamin D3 5 mcg (200 unit) tablet (Calcium 600 + D(3)) 1 tab PO DAILY supplement 04/21/24 acetaminophen 500 mg tablet 1,000 mg (2 x 500 mg) PO Q8 pain #0 tabs 04/24/24 melatonin 3 mg tablet 3 mg PO QHS PRN PRN Insomnia #0 tabs 04/24/24 oxycodone 5 mg tablet 5 mg PO Q4H PRN PRN Pain Score 4-10 2 days #6 tabs 04/24/24 prednisone 20 mg tablet 40 mg (2 x 20 mg) PO DAILY inflammation/pain #8 tabs 04/24/24 sennosides 8.6 mg-docusate sodium 50 mg tablet (Stimulant Laxative Plus) 2 tab PO BID PRN PRN Constipation #0 tabs 04/24/24 Hospital Course Operations None Procedures None Summary of Care Provided Minutes Spent on Discharge: 35 Hospital Course: 74 year old male with below past medical history significant for recent lumbar fusion surgery, hospitalized for bilateral leg weakness 2/2 cervical spinal stenosis, admitted to TCU with debility, here for rehabilitation, strengthening, prior to cervical spinal surgery 04/28/[address] Vasquez. Discharge to [facility] 04/28/2024 for cervical spinal surgery with Dr. Vasquez. Physical Exam Const alert General Appearance: cooperative HEENT normocephalic Eyes PERRL and EOMs intact bilaterally Neck supple, no JVD and no carotid bruits Resp normal respiratory effort, normal air movement and clear to auscultation bilaterally Cardio regular rate and regular rhythm GI normal to inspection, nondistended, normoactive bowel sounds, non-tender and non-distended Extremity normal capillary refill General Extremity: Negative for edema Skin no rashes or lesions noted General Skin Exam: no breakdown Neuro moves all extremities Neuro Narrative: Bilateral upper extremity weakness, left worse than right. Bilateral lower extremity weakness. Psych affect normal Appearance: appropriate Weight / BMI Weight Weight: 98.515 kg Body Mass Index (BMI) 30.2 ABG / Lab / Microbiology Data 04/25/24 05:14 04/25/24 05:14 Laboratory: Laboratory Results - last 24 hr 04/25/24 05:14: WBC 11.7 H, RBC 4.21 L, Hgb 12.8 L, Hct 38.0 L, MCV 90.3, MCH 30.4, MCHC 33.7, RDW Std Deviation 43.1, RDW Coeff of Mejia 13.1, Plt Count 271, MPV 10.8, Immature Gran % (Auto) 0.600, Neut % (Auto) 81.2 H, Lymph % (Auto) 11.1 L, Crisp % (Auto) 7.0, Eos % (Auto) 0.0, Baso % (Auto) 0.1, Absolute Neuts (auto) 9.5 H, Absolute Lymphs (auto) 1.30, Nucleated RBC % 0, Sodium 137, Potassium 4.2, Chloride 104, Carbon Dioxide 28.0, Anion Gap 5, BUN 30 H, Creatinine 0.97, Estim Creat Clear Calc 77.51, Est GFR (MDRD) Af Amer 97, Est GFR (MDRD) Non-Af 80, BUN/Creatinine Ratio 31.0 H, Glucose 111 H, Calcium 9.6 D/C Instructions Discharge Diet: - (NPO.) Discharge Activity: Return to Normal Activity, May Shower and Use Walker Weight Bearing Status: Weight bearing as tolerated Call your doctor if you observe: Fever of 101 or Higher, Inability to urinate, Inability to have a bowel movement, Shortness of breath, Dizziness, Fainting spells, Swelling in the ankles, Chest pain and Uncontrolled pain Meaningful Use Info Meaningful Use Meaningful Use Diagnoses (Choose all that apply): None applicable Ischemic Stroke Statin Dosing Therapy Reference: STATIN DOSE THERAPY REFERENCE: * Patients > 75 years receive moderate or high dose statin therapy. * Patients 75 years or YOUNGER should receive HIGH intensity statin dose unless contraindicated. You will be required to document reason for non-treatment if statin daily dose does not meet guidelines. HIGH DOSE STATIN THERAPY DAILY Atorvastatin > than or = to 40 mg Rosuvastatin > than or = to 20 mg Amlodipine + Atorvastatin > than or = to 2.5/40 mg Ezetimibe + Simvastatin 10/80 mg Simvastatin 80mg Discharge Plan Admission Admit Date/Time: 04/24/24 14:48 Primary Reason for Your Visit: Debility. Attending Provider: Yifan Hernandez Chi Primary Care Provider: Celeste Sinha Instructions Additional Instructions / Restrictions: Discharge to [facility] 04/28/2024 for cervical spinal surgery with Dr. Vasquez. Discharge Orders/Prescriptions Prescriptions: No Action atorvastatin 20 mg tablet 20 mg PO DAILY omeprazole 40 mg capsule,delayed release(DR/EC) 40 mg PO DAILY multivitamin Tablet 1 tab PO DAILY gabapentin 300 mg capsule 600 mg PO TID acetaminophen 500 mg Tablet 1,000 mg PO Q8 Qty: 0 0RF melatonin 3 mg Tablet 3 mg PO QHS PRN PRN (Reason: Insomnia) Qty: 0 0RF oxycodone 5 mg Tablet 5 mg PO Q4H PRN PRN (Reason: Pain Score 4-10) 2 Days Qty: 6 0RF sennosides-docusate sodium [Stimulant Laxative Plus] 8.6-50 mg Tablet 2 tab PO BID PRN PRN (Reason: Constipation) Qty: 0 0RF prednisone 20 mg tablet 40 mg PO DAILY Qty: 8 0RF Rx Instructions: Start on 04/24/2024 calcium carbonate-vitamin D3 [Calcium 600 + D(3)] 600 mg-5 mcg (200 unit) tablet 1 tab PO DAILY Referrals / Follow Up: Celeste Sinha MD [Primary Care Provider] - Disposition Disposition (needs filled in before D/C Order can be placed): Acute Care Hospital [facility]
--- NOTE | 2024-04-25 14:15 | CASEMGMT ---
Social Work SW completed new advanced directives with pt. Original and copies provided to pt. Copies placed on chart. Jenna Tirado, CHIEF WARDEN VET TECH
[2024-04-25 15:12] VITALS: BP 155/78; PULSE 63; RESP 18; TEMP 36.5; O2SAT 97
[2024-04-25] MEDS: 0.9% Saline Lock 10 ML Syringe IV (22:19)
[2024-04-26] MEDS: Acetaminophen 500 MG Tablet 1000 MG PO ×3 (05:46→21:22)
[2024-04-26] MEDS: Gabapentin 300 MG Capsule 600 MG PO ×3 (05:47→21:22)
[2024-04-26] MEDS: Ensure Plus High Protein 120 ML LIQUID PO ×3 (08:01→16:57)
[2024-04-26] MEDS: Multivitamins,Therapeutic Tablet 1 TABLET PO (08:03)
[2024-04-26] MEDS: predniSONE 20 MG Tablet 40 MG PO (08:03)
[2024-04-26] MEDS: Atorvastatin Calcium 20 MG Tablet PO (08:04)
[2024-04-26] MEDS: Calcium Carb/Vitamin D 1 TABLET Tablet PO (08:04)
[2024-04-26] MEDS: Pantoprazole Sodium 40 MG Tablet PO (08:05)
[2024-04-26 08:10] VITALS: BP 155/76; PULSE 61; O2SAT 98
[2024-04-26 11:15] VITALS: PULSE 64; RESP 18; O2SAT 98
[2024-04-26 15:20] VITALS: BP 148/72; PULSE 68; RESP 14; TEMP 36.4
[2024-04-26] MEDS: Menthol/Lanolin/Calamine/Znox 113 GM Tube 1 APPLIC TOPICAL (21:21)
[2024-04-26] MEDS: oxyCODONE 5 MG Tablet PO (21:22)
[2024-04-27] MEDS: Gabapentin 300 MG Capsule 600 MG PO ×3 (05:18→22:01)
[2024-04-27] MEDS: Acetaminophen 500 MG Tablet 1000 MG PO ×3 (05:18→22:01)
[2024-04-27] MEDS: Menthol/Lanolin/Calamine/Znox 113 GM Tube 1 APPLIC TOPICAL ×2 (07:51→22:04)
[2024-04-27] MEDS: Ensure Plus High Protein 120 ML LIQUID PO ×3 (07:51→17:16)
[2024-04-27] MEDS: predniSONE 20 MG Tablet 40 MG PO (07:53)
[2024-04-27] MEDS: Multivitamins,Therapeutic Tablet 1 TABLET PO (07:54)
[2024-04-27] MEDS: Atorvastatin Calcium 20 MG Tablet PO (07:54)
[2024-04-27] MEDS: Calcium Carb/Vitamin D 1 TABLET Tablet PO (07:54)
[2024-04-27] MEDS: Pantoprazole Sodium 40 MG Tablet PO (07:55)
[2024-04-27 07:58] VITALS: BP 145/75; PULSE 59; O2SAT 97
[2024-04-27 12:45] VITALS: PULSE 64; RESP 16
[2024-04-27 16:00] VITALS: BP 144/70; PULSE 68; RESP 16; TEMP 36.7; O2SAT 96
[2024-04-27] MEDS: oxyCODONE 5 MG Tablet PO (22:01)
[2024-04-27] MEDS: 0.9% Saline Lock 10 ML Syringe IV (22:02)
[2024-04-28] MEDS: Gabapentin 300 MG Capsule 600 MG PO (05:05)
[2024-04-28 05:08] VITALS: PULSE 64; RESP 16
--- NOTE | 2024-04-28 08:33 | NURSING ---
Oil Pump Station Operator Chief Note; MDS for 04/28/2024
[2024-04-28] MEDS: Pantoprazole Sodium 40 MG Tablet PO (09:13)
--- NOTE | 2024-05-06 11:39 | MDS.RN ---
Information for the MDS was obtained from review of the clinical record, interview of resident, staff, and direct observation of resident?s care.
== END 2024-04-28 10:05 | disposition short-term general hospital (02) | DRG 552 ==
PROVIDERS: Admitting Provider Family Medicine Geriatric Medicine; PCP Family Medicine; Visit Provider Family Medicine Geriatric Medicine
DX: M48.02 Spinal stenosis, cervical region (principal); E78.5 Hyperlipidemia, unspecified; G62.9 Polyneuropathy, unspecified; K21.9 Gastro-esophageal reflux disease without esophagitis; Z79.899 Other long term (current) drug therapy; Z23 Encounter for immunization; Z91.81 History of falling; G47.00 Insomnia, unspecified; Z98.1 Arthrodesis status
CPT/HCPCS: 36415; 80048; 85025; 87641; 90662; 97110; 97116; 97162; 97166; 97530; 97535; 97802; A4216

== ENCOUNTER 2024-04-28 16:07 | Observation (INO) | payer MEDICARE, SELFPAY ==
[2024-04-25 11:10] LABS: AST(SGOT) 12 U/L (15-37); Alanine Aminotransfer ALT/SGPT 17 U/L (16-61); Albumin, Serum 3.5 g/dL (3.2-5.0); Alkaline Phosphatase 69 U/L (45-117); Bilirubin, Direct 0.17 mg/dL (0.00-0.30); Globulin 2.8 g/dL (2.2-4.2); Protein, Total 6.3 g/dL (6.4-8.2)
[2024-04-28] VITALS (12 sets, daily range): BP systolic 154–171; BP diastolic 69–85; PULSE 57–82; RESP 15–18; TEMP 36.2–37.1; O2SAT 91–100; BMI 30.2
[2024-04-28 10:57] LABS: Bedside Glucose 94 mg/dL (74-106)
--- NOTE | 2024-04-28 11:04 | PCM.PRE.AN2 ---
ASA Classification* ASA Classification ASA Classification: 2 Assessment & Plan Anesthesia* Anesthesia Assessment Anesthesia Assessment: Discussed sedation and/or anesthesia options, risks, benefits, and alternatives with patient/parents/legal guardian/POA. Questions invited. The patient/parents/legal guardian/POA seems to understand and agrees to proceed with anesthesia plan. Reviewed the physical assessment, medical history, allergy history and patient home medications list prior to surgery/procedure/anesthetic and documented any changes. Performed airway and anesthesia risk assessments. Anesthesia Type Anesthesia Type: General Anesthesia Focused Assessment* Airway Assessment Mouth opens: >3 cm Mallampati Score: II Focused Labs Anesthesia Preop lab: CBC WBC 11.7 K/mm3 (4.4-11.0) H 04/25/24 05:14 RBC 4.21 M/mm3 (4.6-6.2) L 04/25/24 05:14 Hgb 12.8 g/dL (13.0-16.5) L 04/25/24 05:14 Hct 38.0 % (40-54) L 04/25/24 05:14 Plt Count 271 K/mm3 (150-450) 04/25/24 05:14 CHEMISTRY Potassium 4.2 mmol/L (3.5-5.1) 04/25/24 05:14 Sodium 137 mmol/L (136-145) 04/25/24 05:14 Magnesium 1.9 mg/dL (1.6-2.6) 04/22/24 16:40 Phosphorus 4.3 mg/dL (2.5-4.9) 04/22/24 16:40 BUN 30 mg/dL (7-18) H 04/25/24 05:14 Creatinine 0.97 mg/dL (0.70-1.30) 04/25/24 05:14 Glucose 111 mg/dL (74-106) H 04/25/24 05:14 POC Glucose 94 mg/dL (74-106) 04/28/24 10:37 TSH 3.33 uIU/mL (0.358-3.74) 12/19/23 08:49 COAG Pre-Assessment Diagnosis/Proposed Procedure Planned Operative Procedure(s): Anterior Cervical Fusion C3-4 and C4-5 Anesthesia History Anesthesia History - residential builder: Anesthesia History - residential builder Hx Hospitalization No 04/21/24 08:27 Any Problems With Anesthesia Yes: TROUBLE WAKING UP POST 04/21/24 08:27 OP Cholinesterase deficiency No 04/21/24 08:27 You/Your Family Experience No 04/21/24 08:27 fever (hyperthermia) with Relationship Recent Exposure to Contagious No 04/09/24 09:39 Disease Does patient have nerve No 04/21/24 08:27 stimulator Patient instructed to have device shut off --Does patient have Pacemaker or ICD? When Was Last Pacemaker Check QUESTION #4 FULL TEXT: You/Your Family Experience fever (hyperthermia) with Anesthesia Last Oral Intake Last Oral intake: Last Oral Intake NPO since Meds taken in AM with sips of water? Meds patient instructed to take am of surgery PONV PONV - residential builder: PONV - residential builder Female No 04/21/24 08:27 HX of Motion Sickness No 04/21/24 08:27 HX of N/V After Surgery No 04/21/24 08:27 Non-Smoker Yes 04/21/24 08:27 Duration of Surgery greater Yes 04/21/24 08:27 than 60 minutes Number of Risk Factors 2 04/21/24 08:27 PONV Score Moderate Risk 04/21/24 08:27 Height & Weight Height & Weight: Anesthesia: Height & Weight Height 5 ft 11 in 04/25/24 15:04 Respiratory Assessment Respiratory Assessment - residential builder: Respiratory Tract Infection Hx - residential builder Hx Respiratory Tract Infection No 04/21/24 08:27 STOP Sleep Apnea STOP Sleep Apnea - residential builder: STOP Sleep Apnea - residential builder Hx Hypertension No 04/25/24 10:15 Hx Sleep Apnea No 04/21/24 08:27 CPAP No 04/24/24 15:06 BIPAP No 04/24/24 15:06 Do you snore loudly (louder Yes 04/21/24 08:27 than talking or can be heard Do you often feel tired/ No 04/21/24 08:27 fatigued/ sleepy during daytime? Has anyone observed you stop Yes 04/21/24 08:27 breathing during sleep? STOP Results Positive 04/21/24 08:27 QUESTION #5 FULL TEXT : Do you snore loudly (louder than talking or can be heard through closed doors)? Tobacco Use History Tobacco Use History - residential builder: Tobacco Use History - residential builder Tobacco Use Smoking Status Never smoker 04/24/24 15:06 Hx Tobacco Use No 04/24/24 15:06 Years Smoking Packs Smoked per Day Smoking Cessation Date was within the last 15 years Hx Smoking Cessation Date Hx Smoking Cessation Counseling Hematologic Medial History Hematologic Hx - residential builder: Hematologic Medical Hx - documentation billing clerk Hx of Blood Transfusion No 04/21/24 08:27 Hx of Transfusion in last 3 No 04/21/24 08:27 Months Date of Last Transfusion (if within last 3 months) Ever experience any problems No 04/21/24 08:27 with transfusion(s)? Specify any problems Hx of Preganancy in last 3 N/A 04/21/24 08:27 Months Nurse Filling Out Transfusion NBUCHER 04/21/24 08:27 & Questions: Date: 04/21/24 04/21/24 08:27 Time: 08:30 04/21/24 08:27 Patient unable to answer at this time (ie. confused, unrespo /Reproduction History /Reproductive History - residential builder: /Reproductive Hx- residential builder Hx Now No 04/21/24 08:27 Gestational Age (in weeks): EDC: Hx Hx Para Hx Section SAB No 04/21/24 08:27 Active Medications Active Medications: Current Medications Generic Name Dose Route Start Last Admin Trade Name Freq PRN Reason Stop Dose Admin Acetaminophen 1,000 mg 04/28/24 12:30 Acetaminophen 500 Mg Tablet PO 04/28/24 12:31 X1 ONE Dexamethasone Sodium Phosphate 8 mg 04/28/24 12:30 Dexamethasone 10 Mg/Ml Vial IV 04/28/24 12:31 X1 ONE Dexamethasone Sodium Phosphate 4 mg 04/28/24 12:30 Dexamethasone 4 Mg/Ml Vial IV 04/28/24 12:31 X1 ONE Cefazolin Sodium 2 gm/ N/A 20 mls @ 400 mls/hr 04/28/24 12:30 IV 04/28/24 12:32 PREOP ONE Magnesium Sulfate 1 gm/ 102 mls @ 408 mls/hr 04/28/24 12:30 Dextrose IV 04/28/24 12:44 X1 ONE Lactated Ringer's 1,000 mls @ 15 mls/hr 04/28/24 10:15 IV 05/03/24 23:34 .Q48H [facility] Protocol Insulin Human Lispro 1 - 6 unit 04/28/24 12:30 Insulin Lispro 100 Unit/Ml Insuln.Pen SC Q4H PRN PRN BG>/= 180, SEE PROTOCOL Protocol PFSH Medical History Wears glasses Alcohol use Arthritis Back pain Heartburn Gastric reflux Leg cramps History of edema Non-smoker Home Medications ?Medication ?Instructions ?Recorded ?Last Taken ?Type atorvastatin 20 mg tablet 20 mg PO DAILY HYPERLIDEMIA 01/23/24 03/04/24 21:00 History multivitamin 1 tab PO DAILY SUPPLEMENT 01/23/24 03/04/24 06:30 History omeprazole 40 mg capsule,delayed 40 mg PO DAILY GERD 01/23/24 03/05/24 04:30 History release gabapentin 300 mg capsule 600 mg PO TID NERVE PAIN 01/31/24 03/05/24 04:30 History calcium 600 mg (as 1 tab PO DAILY supplement 04/21/24 Unknown History carbonate)-vitamin D3 5 mcg (200 unit) tablet (Calcium 600 + D(3)) acetaminophen 500 mg tablet 1,000 mg (2 x 500 mg) PO Q8 pain 04/24/24 Unknown Rx #0 tabs melatonin 3 mg tablet 3 mg PO QHS PRN PRN Insomnia #0 04/24/24 Unknown Rx tabs oxycodone 5 mg tablet 5 mg PO Q4H PRN PRN Pain Score 04/24/24 Unknown Rx 4-10 2 days #6 tabs prednisone 20 mg tablet 40 mg (2 x 20 mg) PO DAILY 04/24/24 Unknown Rx inflammation/pain #8 tabs sennosides 8.6 mg-docusate sodium 2 tab PO BID PRN PRN Constipation 04/24/24 Unknown Rx 50 mg tablet (Stimulant Laxative #0 tabs Plus) Allergy/AdvReac Type Severity Reaction Status Date / Time No Known Allergies Allergy Verified 04/28/24 10:40 Family History Mother , age 44 with metastatic breast CA. Breast cancer Aunt , age 55 from Breast CA. Breast cancer Father , age 60 from massive [place]. CAD (coronary artery disease) Heart disease Hypertension Myocardial infarction Surgical History History of lumbar fusion History of colonoscopy History of back surgery History of knee replacement Social History household members: spouse Smoking Status: Never smoker alcohol intake: current alcohol intake frequency: 0-2 drinks per day substance use type: does not use frequency: 1-2 times per week Review of Systems (Anesthesia) ROS Narrative System reviewed and no additional complaints, except as documented.
[2024-04-28] MEDS: Magnesium 1 GM over 15 mins IV (11:10)
[2024-04-28] MEDS: Lactated Ringers 1,000 ML 15 ML IV (11:10)
[2024-04-28] MEDS: Acetaminophen 500 MG Tablet 1000 MG PO (11:10)
--- NOTE | 2024-04-28 12:43 | PCM.HP.BLA ---
History and Physical Date of Admission: 04/28/24 HPI Consult Data Date of Consult: 04/23/24 HPI Narrative HPI Narrative: JACKLYN WU, is a 74 M who presents with weakness and balance deficits with history of falls. Patient admitted for potential rehab placement due to difficulty maintaining independence at home. Patient is well-known to me and has undergone L2-L5 fusion in February and is scheduled to undergo a C3-5 ACDF on Sunday. Denies any significant neck injury with the falls or any whiplash is. Has minimal axial low back pain. Denies any radiating pain. He has baseline right lower extremity weakness. He says that his knee is buckled and he fell. His weakness in lower extremities and knee buckling started about 3 weeks ago and have been progressively getting worse. About 2 to 3 weeks after surgery patient had actually weaned off of the walker and was only using cane as an insurance rather than support. He somehow declined significantly in his function 2 to 3 weeks ago. His axial low back pain from the surgery has actually significantly improved. [facility] Medical History Wears glasses Alcohol use Arthritis Back pain Heartburn Gastric reflux Leg cramps History of edema Non-smoker Home Medications ?Medication ?Instructions ?Recorded ?Last Taken ?Type atorvastatin 20 mg tablet 20 mg PO DAILY HYPERLIDEMIA 01/23/24 03/04/24 21:00 History multivitamin 1 tab PO DAILY SUPPLEMENT 01/23/24 03/04/24 06:30 History omega-3 fatty acids 1,250 mg 1,250 mg PO BID SUPPLEMENT 01/23/24 04/21/24 History capsule omeprazole 40 mg capsule,delayed 40 mg PO DAILY GERD 01/23/24 03/05/24 04:30 History release gabapentin 300 mg capsule 600 mg PO TID NERVE PAIN 01/31/24 03/05/24 04:30 History acetaminophen 500 mg tablet 500 mg PO Q6H #30 tabs 03/07/24 Unknown Rx calcium 600 mg (as 1 tab PO DAILY 04/21/24 Unknown History carbonate)-vitamin D3 5 mcg (200 unit) tablet (Calcium 600 + D(3)) Allergy/AdvReac Type Severity Reaction Status Date / Time No Known Allergies Allergy Verified 04/22/24 16:10 Family History Mother , age 44 with metastatic breast CA. Breast cancerAunt , age 55 from Breast CA. Breast cancerFather , age 60 from massive MS. CAD (coronary artery disease) Heart disease Hypertension Myocardial infarction Surgical History History of lumbar fusion History of colonoscopy History of back surgery History of knee replacement Social History household members: spouse Smoking Status: Never smoker alcohol intake: current alcohol intake frequency: 0-2 drinks per day substance use type: does not use frequency: 1-2 times per week Vital Signs Vital Signs Vital Signs: 04/22/2416:09 04/22/2416:17 04/22/2416:20 Temperature 97.7 F L Temperature Source Oral Pulse Rate 72 Pulse Strength Respiratory Rate 16 Respiratory Effort Normal Respiratory Depth Normal Respiratory Pattern Normal Blood Pressure 186/88 H 155/84 H Blood Pressure Mean 120 107 Blood Pressure Source Blood Pressure Position Blood Pressure Location Pulse Ox 99 97 Oxygen Delivery Method Room Air 04/22/2418:09 04/22/2420:01 04/22/2421:03 Temperature 97.5 F L 97.9 F Temperature Source Oral Pulse Rate 90 74 73 Pulse Strength Respiratory Rate 16 15 18 Respiratory Effort Respiratory Depth Respiratory Pattern Blood Pressure 143/84 H 159/71 H 153/66 H Blood Pressure Mean 103 100 95 Blood Pressure Source Monitor Blood Pressure Position Semi-Fowlers Blood Pressure Location Left Arm Pulse Ox 99 96 97 Oxygen Delivery Method Room Air Room Air 04/22/2421:57 04/23/2403:45 04/23/2408:10 Temperature 97.9 F Temperature Source Oral Pulse Rate 69 Pulse Strength Respiratory Rate 18 Respiratory Effort Normal Non-Labored Respiratory Depth Normal Respiratory Pattern Normal Blood Pressure 131/52 H Blood Pressure Mean 78 Blood Pressure Source Monitor Blood Pressure Position Semi-Fowlers Blood Pressure Location Right Arm Pulse Ox 96 95 Oxygen Delivery Method Room Air Room Air 04/23/2409:19 04/23/2409:36 04/23/2414:55 Temperature 98.9 F Temperature Source Oral Pulse Rate 83 74 Pulse Strength Normal (2+) Respiratory Rate 12 14 Respiratory Effort Normal Non-Labored Respiratory Depth Normal Respiratory Pattern Normal Blood Pressure 131/67 H Blood Pressure Mean 88 Blood Pressure Source Monitor Blood Pressure Position Semi-Fowlers Blood Pressure Location Left Arm Pulse Ox 96 97 Oxygen Delivery Method Room Air Room Air Weight Weight: 190 lb 7.67 oz Body Mass Index (BMI) 26.6 Physical Exam Narrative Lumbar incisions well-healed. Neurologic examination shows 5 x 5 power in all muscles in both upper extremities, grade 4 - in right lower extremity and grade 4+ on the left lower extremity. Lab / Micro Data 04/23/24 05:05 04/23/24 05:05 Labs: Laboratory Results - last 24 hr 04/22/24 16:40: WBC 9.1, RBC 4.40 L, Hgb 13.3, Hct 40.5, MCV 92.0, MCH 30.2, MCHC 32.8, RDW Std Deviation 44.3 H, RDW Coeff of Mejia 13.1, Plt Count 241, MPV 9.8, Immature Gran % (Auto) 0.300, Neut % (Auto) 69.1, Lymph % (Auto) 19.5, [place] % (Auto) 9.9, Eos % (Auto) 1.1, Baso % (Auto) 0.1, Absolute Neuts (auto) 6.3, Absolute Lymphs (auto) 1.77, Nucleated RBC % 0, Sodium 140, Potassium 4.2, Chloride 105, Carbon Dioxide 29.0, Anion Gap 6, BUN 18, Creatinine 0.97, Estim Creat Clear Calc 78.20, Est GFR (MDRD) Af Amer 97, Est GFR (MDRD) Non-Af 80, BUN/Creatinine Ratio 18.6, Glucose 103, Calcium 9.9, Phosphorus 4.3, Magnesium 1.9, Total Bilirubin 0.40, AST 11 L, ALT 19, Alkaline Phosphatase 77, Total Protein 6.9, Albumin 3.8, Globulin 3.1, Albumin/Globulin Ratio 1.2 04/22/24 18:14: Urine Color Yellow, Urine Clarity Clear, Urine pH 6.0, Ur Specific [place] 1.015, Urine Protein Negative, Urine Glucose (UA) Normal, Urine Ketones Negative, Urine Occult Blood Negative, Urine Nitrite Negative, Urine Bilirubin Negative, Urine Urobilinogen Normal, Ur Leukocyte Esterase Negative, Urine RBC 0 SEEN, Urine WBC 0-5 SEEN, Ur Squamous Epith Cells 0 SEEN, Urine Bacteria 0 SEEN, Urine Mucus RARE 04/23/24 05:05: WBC 7.5, RBC 4.41 L, Hgb 13.1, Hct 40.4, MCV 91.6, MCH 29.7, MCHC 32.4, RDW Std Deviation 44.4 H, RDW Coeff of Mejia 13.1, Plt Count 258, MPV 10.3, Immature Gran % (Auto) 0.300, Neut % (Auto) 89.5 H, Lymph % (Auto) 9.3 L, [place] % (Auto) 0.8, Eos % (Auto) 0.0, Baso % (Auto) 0.1, Absolute Neuts (auto) 6.8, Absolute Lymphs (auto) 0.70 L, Nucleated RBC % 0, Sodium 140, Potassium 4.5, Chloride 107, Carbon Dioxide 27.0, Anion Gap 6, BUN 21 H, Creatinine 0.98, Estim Creat Clear Calc 68.30, Est GFR (MDRD) Af Amer 96, Est GFR (MDRD) Non-Af 79, BUN/Creatinine Ratio 21.4 H, Glucose 149 H, Calcium 9.6, Total Bilirubin 0.50, AST 14 L, ALT 16, Alkaline Phosphatase 75, Total Protein 6.8, Albumin 3.5, Globulin 3.3, Albumin/Globulin Ratio 1.1 Imaging Radiology Impression Lumbar Spine MRI 04/22/24 16:40 IMPRESSION: Interval posterior lumbar fusion surgery with hardware L2-L5. Multilevel degenerative changes with foraminal stenoses as above. No acute bony injury. Electronically Signed: Pedrito Phillips MD at 18:50 EDT Reading Location ID and State: [facility] / [place] Tel , Service support , Assessment & Plan Assessment/Plan (1) Cervical myelopathy: (2) Status post lumbar spinal fusion: PLAN: Plan Reviewed patient's recent x-rays and MRI of cervical lumbar spine. MRI lumbar spine repeated yesterday night does not show any new stenosis. Previous x-rays of lumbar spine show good alignment. Cervical spine shows C3-5 stenosis with cord compression without cord signal changes. Cerebellar atrophy noticed on the cervical MRI. Discussed with hospitalist regarding obtaining a brain MRI and potentially neurology consultation if found appropriate. At this point other than cervical cord compression, there does not seem to be any other source of progressive weakness and balance issues. I would like to proceed with C3-5 ACDF . All risk benefits and alternatives were discussed in detail. The risks of surgery include but are not limited to infection, bleeding, hematoma formation, need for surgery, injury to nerves and vessels, esophageal injury, hoarseness, dysphagia, dysphonia, recurrent laryngeal nerve injury, spinal cord injury, nerve root injury, C5 palsy, DVT, pulm embolism, pseudoarthrosis, hardware failure, adjacent segment degeneration, persistent weakness, persistent balance issues, persistent residual myelopathy, stroke, . Patient understands and agrees to proceed with surgery. Patient was in agreement.
[2024-04-28] MEDS: Cefazolin 2 GM in Syringe IV ×2 (13:03→23:20)
[2024-04-28] MEDS: TRANEXAMIC ACID 1,000 MG in 0.9% Normal Saline (100mL Bag) 100 ML 660 MG IV ×2 (13:03→15:24)
[2024-04-28] MEDS: dexAMETHasone 10 MG/ML Vial 8 MG IV (13:15)
--- NOTE | 2024-04-28 13:27 | RAD_ITS ---
STUDY: X-RAY - CERVICAL SPINE REASON FOR EXAM: Male, 74 years old. FUSION C3-4, C4-5 TECHNIQUE: 7 intraoperative view(s) of the cervical spine were obtained. COMPARISON: None FINDINGS: Intraoperative images from degenerative changes cervical spine with surgical fusion anteriorly at C3-C5.. RAD/Cerv Spine 2 or 3 Views IMPRESSION: Surgical fusion of the cervical spine. Electronically Signed: Conor Newberry DO at 16:19 EDT Reading Location ID and State: [facility] / [place] Tel [phone], Service support ,
--- NOTE | 2024-04-28 15:57 | OP.PCM_ITS ---
Report of Operation Date of Procedure: 04/28/24 Description of Surgical Findings:: Preoperative diagnosis: C3-5 disc degeneration with stenosis, myelopathy Postoperative diagnosis: Same Name of procedure: C3-5 anterior cervical discectomy and fusion with plate instrumentation - Anterior cervical fusion C3-4, CPT code 31153 - Anterior plate instrumentation C3-5, CPT code 19794/59 - Anterior cervical fusion C4-5, CPT code 22397/51 -C3-4 structural allograft bone with DBX, CPT code 85092 -C4-5 structural allograft bone with DBX, CPT code 28525 Attending surgeon: Carson Vasquez M.D. Anesthesia: Gen. endotracheal Estimated blood loss: 20 mL Complications: None Instrumentation used: Medtronic [place] Elite plate, LASR corticocancellous block Indications: The patient is a pleasant 74-year-old gentleman who presented with worsening difficulty with dexterity and balance such that he was unable to be i ndependent in terms of ambulation and had multiple falls. He was admitted in the TCU for rehab. MRI showed C3-5 disc degeneration with stenosis with cord compression without any cord signal changes. In order to halt the progression of myelopathy, the patient requested surgical treatment. All risks and benefits of the procedure were explained to the patient. The risks include but are not limited to infection, bleeding, injury to nerves and vessels, vertebral artery injury, spinal cord injury, paralysis, vocal cord paralysis, injury to esophagus, pseudoarthrosis, need for further procedures, adjacent segment degeneration. Procedure: The patient was identified in the preoperative suite using unique patient identifiers. Skin was marked consent was taken and all questions were answered. The patient was then brought back to the operative room and a timeout was performed. General endotracheal anesthesia was given. Intraoperative neuro monitoring leads were applied. The patient was carefully positioned supine on a regular OR table. A lateral view with a C-arm was done to identify the level and to define the incision. The anterior neck was then prepped and draped in the usual fashion. A final timeout was then performed. A transverse skin incision was taken to the left of midline. Subcutaneous tissue was then divided with Bovie. Platysma was identified and cut along the incision with scissors. The fascial interval between the sternocleidomastoid and the larynx was developed. Omohyoid was identified and retracted. The esophagus with the larynx was retracted medially to reach the prevertebral fascia. Marker x-ray was performed with bent spinal needle and disc space and levels were confirmed. Longus coli muscle was elevated on both sides at and above and below C3-5 discs. Self-retaining retractors were then placed. A long handle knife was then used to perform annulotomy at C3-4. Disc fragments were removed with the pituitary. Aldrich pins were placed in C3 and C4 for disc distraction. Curettes and bur was utilized to remove cartilage from the endplates. Discectomy was performed laterally up to the uncovertebral joints. Posterior osteophytes were thinned down with the bur and adequate decompression in the central and foraminal areas were performed and PLL was thinned out. Once the disc space was prepared, trials of various sizes were utilized. Thorough irrigation was given. 6 mm LASR cortical cancellous allograft bone large footprint was then fashioned in such a way that concavities were burred out inferiorly and superiorly and half cc of DBX (demineralized bone matrix) was squeezed into the cancellous portion. The graft was then inserted into the C3-4 disc space. The retractors were then repositioned and the procedure was repeated for C4-5 disc with complete discectomy. Graft size was 7 mm at with large footprint at C4-5. The grafts were found to be in good apposition with good pullout strength. A 42 mm Medtronic [place] Elite plate was then fixed to C3-5 with 16 mm screws. A lateral x-ray was then taken to check the length of the screws. Both AP and lateral x-rays showed good positioning of plate and screws. The locking mechanism over the screw heads was then turned. Thorough irrigation was again given. Hemostasis was achieved. A Rickey drain was then inserted. Closure was done with 3-0 Vicryl for the platysma and subcutaneous tissue layers and 4-0 Monocryl for the skin. Closure was done around the drain. Steri-Strips were applied and dressing was done with 4 x 4 gauze and Tegaderm. A cervical collar was then applied. The patient was then woken up from anesthesia extubated and taken to PACU in stable condition. From here, the patient will be transitioned to the floor. Intraoperative neuro monitoring was performed throughout this procedure. Motor evoked potentials were run periodically. All potentials remained at baseline throughout the procedure. I was present for the entire surgery and performed the surgery myself. Surgeon: Carson Vasquez Health Services Director: Goldie Thurston Admit VTE Documentation VTE Mechan Device Prophylaxis: SCD's Procedures Musculoskeletal [id number]: Other Procedure See Report
--- NOTE | 2024-04-28 16:14 | PCM.POST.ANE ---
Anesthesia: Postop Eval I Current Vital Signs Temperature: 97.1 F Pulse Rate: 74 Blood Pressure: 163/85 Respiratory Rate: 16 Pulse Ox: 93 Oxygen Delivery Method: Nasal Cannula Oxygen Flow Rate (L/min): 4 Assessment Airway patent: Yes Spontaneous unlabored respirations: Yes Mental status: Awake and Calm nausea: No Vomiting: No Anesthesia Complication: No Fluid Hydration Crystalloid volume administer (ml): 1,200 Total IV fluid infused: 1,200 Progress Note Anesthesia document: Postop Eval 1 completed: Yes
[2024-04-28] MEDS: Ketorolac 15 MG/ML Vial IV (16:59)
--- NOTE | 2024-04-28 17:15 | PCM.POSTANE2 ---
Anesthesia Postop Eval I Sum Postop Eval Completion status Anesthesia document: Postop Eval 1 completed: Yes Anesthesia Postop Eval I Summary Anesthesia Postop Eval I Summary: Anesthesia Postop Eval I: Assessment Summary Airway patent Yes 04/28/24 16:16 Spontaneous unlabored Yes 04/28/24 16:16 respirations Mental status Awake,Calm 04/28/24 16:16 nausea No 04/28/24 16:16 Vomiting No 04/28/24 16:16 Anesthesia Postop Eval I: Fluid Summary Crystalloid volume administer 1,200 04/28/24 16:16 (ml) Colloids volume administered ( ml) Blood Product volume administered (ml) Total IV fluid infused 1,200 04/28/24 16:16 Anesthesia Postop Eval I: Summary Notes Anesthesia Complication No 04/28/24 16:16 Anesthesia Complication Comment: Post-operative progress note Anesthesia: Postop Eval II Evaluation Mental status: Awake Pain Level: 0 nausea: No Vomiting: No
[2024-04-28] MEDS: Ensure Surgery 237 ML LIQUID PO (19:06)
[2024-04-28] MEDS: Methocarbamol 500 MG Tablet 1000 MG PO ×2 (19:06→23:04)
[2024-04-28] MEDS: dexAMETHasone 4 MG/ML Vial IV (20:00)
[2024-04-28] MEDS: Senna/Docusate Sodium 1 Tablet 2 TABLET PO (23:04)
[2024-04-29] MEDS: Ketorolac 15 MG/ML Vial IV ×2 (00:16→05:22)
[2024-04-29 00:31] VITALS: RESP 15
[2024-04-29 02:28] VITALS: BP 144/74; PULSE 77; RESP 15; TEMP 37.2; O2SAT 96
[2024-04-29] MEDS: dexAMETHasone 4 MG/ML Vial IV (02:37)
[2024-04-29] MEDS: 0.9% Saline Lock 10 ML Syringe IV (05:22)
[2024-04-29] MEDS: Cefazolin 2 GM in Syringe IV (06:24)
--- NOTE | 2024-04-29 07:20 | RAD_ITS ---
INDICATION: s/p cervical fusion -- please do upright AP and LAT EXAMINATION/TECHNIQUE: X-RAY - XR Spine Cervical 2 or 3 Views COMPARISON: Prior study dated: 04/14/2024 FINDINGS: VERTEBRAE: Preserved vertebral body height. No fracture. No spondylolisthesis. Preservation of the normal cervical lordosis. DISCS: Anterior fusion of C4, C5 and C6 with plate and screws. Disc implants at C3-C4 and C4-C5. NECK SOFT TISSUES: Drainage tube on the right side of the neck. Soft tissue swelling anteriorly and pockets of air consistent with recent surgery. LUNG APICES: Clear. RAD/Cerv Spine 2 or 3 Views IMPRESSION: Status post anterior fusion of the cervical spine as described above.. Electronically Signed: Darrin Valero MD at 12:55 EDT ,
[2024-04-29] MEDS: Ensure Surgery 237 ML LIQUID PO ×2 (08:17→14:05)
[2024-04-29 08:19] VITALS: BP 172/85; PULSE 72; RESP 16; TEMP 37.1; O2SAT 97
[2024-04-29 08:21] LABS: Hematocrit 41.9 % (40-54); Hemoglobin 13.8 g/dL (13.0-16.5); Mean Corp Hgb Conc 32.9 g/dL (32-36); Mean Corpuscular Hgb 29.3 pg (27.0-32.0); Mean Platelet Vol. 10.5 fl (6.2-12.0); Platelet Count 346 K/mm3 (150-450); RBC Distribution Width CV 12.8 % (11.6-14.6); RBC Distribution Width SD 42.2 fl (35.1-43.9); Red Blood Count 4.71 M/mm3 (4.6-6.2); White Blood Count 19.3 K/mm3 (4.4-11.0)
[2024-04-29 08:25] LABS: Anion Gap 12 (5-15); BUN 27 mg/dL (7-18); BUN/Creat Ratio 23.7 RATIO (10-20); Chloride 101 mmol/L (98-107); Creatinine, Serum 1.14 mg/dL (0.70-1.30); EST Glomerular Filtration Rate 66 mL/min (>60); Est Glom Filt Rate - Afr Amer 80 mL/min (>60); Estimated Creatinine Clearance 65.93 ml/min; Glucose 128 mg/dL (74-106); Potassium 4.2 mmol/L (3.5-5.1); Sodium Level 135 mmol/L (136-145)
[2024-04-29] MEDS: Senna/Docusate Sodium 1 Tablet 2 TABLET PO ×2 (08:58→21:56)
[2024-04-29] MEDS: Methocarbamol 500 MG Tablet 1000 MG PO ×4 (08:58→21:56)
[2024-04-29] MEDS: Meloxicam 15 MG Tablet PO (08:58)
--- NOTE | 2024-04-29 09:32 | PN.HOSP_ITS ---
Subjective Subjective Doing well, no issues overnight. He recently had lumbar spine surgery and then had to have cervical spine surgery so he is feeling a little wrung out. Leukocytosis is 19.3 today likely reactive and renal function is stable Objective Data Objective Data Vital Signs: Vital Signs Temp Pulse Resp BP Pulse Ox O2 Del Method O2 Flow Rate 98.7 F 72 16 172/85 H 97 Room Air 4 04/29/24 08:19 04/29/24 08:19 04/29/24 08:19 04/29/24 08:19 04/29/24 08:19 04/29/24 08:19 04/28/24 17:45 Oxygen Flow Rate (L/min) 4 Oxygen Delivery Method Room Air Weight: 217 lb 0.016 oz Body Mass Index (BMI) 30.2 Intake & Output: Intake and Output for Last 24 Hours 04/28/24 04/29/24 04/30/24 03:59 03:59 03:59 Intake Total 1962 / 1962 1245.75 / 1245.75 Output Total 700 / 700 600 / 600 Balance 1262 / 1262 645.75 / 645.75 Lab / Micro Data 04/29/24 07:44 04/29/24 07:44 Labs: Laboratory Results - last 24 hr 04/28/24 10:37: POC Glucose 94 04/29/24 07:44: WBC 19.3 H, RBC 4.71, Hgb 13.8, Hct 41.9, MCV 89.0, MCH 29.3, MCHC 32.9, RDW Std Deviation 42.2, RDW Coeff of Mejia 12.8, Plt Count 346, MPV 10.5, Sodium 135 L, Potassium 4.2, Chloride 101, Carbon Dioxide 22.0, Anion Gap 12, BUN 27 H, Creatinine 1.14, Estim Creat Clear Calc 65.93, Est GFR (MDRD) Af Amer 80, Est GFR (MDRD) Non-Af 66, BUN/Creatinine Ratio 23.7 H, Glucose 128 H, Calcium 10.0 Radiography Diagnostic Testing: Radiology Impression Cervical Spine X-Ray 04/28/24 13:27 IMPRESSION: Surgical fusion of the cervical spine. Electronically Signed: Conor Newberry DO at 16:19 EDT Reading Location ID and State: [facility] / [place] Tel [phone], Service support , Physical Exam Narrative General: Alert, Oriented x3, Cooperative, No apparent distress HEENT: Atraumatic, PERRLA, EOMI, Normocephalic, c-collar in place Oral: Moist Mucosa Neck: Supple, No JVD Lungs: Diminished, Normal air movement, No rhonchi, No wheeze, No rales Cardiovascular: Regular rate, Regular Rhythm, Normal S1, Normal S2, No murmurs Abdomen: Soft, Non Tender, Non-Distended, No Hepato-splenomegaly Extremities: No edema, Capillary Refill Less than 3 Seconds Skin: Anterior neck dressing CDI Musculoskeletal: No Tenderness to Palpation of Joints or Extremities Neurological: No focal neurological deficits, Motor Exam 5/5 strength throughout, Sensory exam intact to light touch and pain Psych/Mental Status: Normal Affect, Appropriate Assessment & Plan Assessment/Plan (1) Cervical spinal stenosis: PLAN: Plan 1. Cervical spine stenosis status post C3-5 anterior discectomy and fusion ? PT/OT ? Pain management per primary ? Discharge planning per primary, will likely need SNF placement 2. Hyperlipidemia and GERD are chronic medical conditions. Will continue with his home medications DVT: Per primary Charges/Coding Visit Charges Inpatient E&M: 85685 Subs Hosp L2
[2024-04-29 11:03] VITALS: BP 157/75; PULSE 89; RESP 18; TEMP 36.6; O2SAT 95
--- NOTE | 2024-04-29 11:09 | CASEMGMT ---
Addendum entered by Nery Love 04/29/24 16:03: Pt family updated on status of referral and that precert was started. LILIBETH Salazar Addendum entered by Nery Love 04/29/24 15:16: TCU accepted pt referral; precert started. LILIBETH Salazar Addendum entered by Nery Love 04/29/24 13:35: A list of SNF providers including quality and resource use data and consistent with the patient?s preferred geographic region, medical needs, and insurance network were provided from the [facility] Guide was declined d/t pt knowing FOC. LILIBETH Salazar Original Note: Social Work- SW met with pt and family to discuss plans at d/c. Pt reports that he would likenothing more than to go back to TCU stating that they provided exceptional care. SW completed referral to TCU. LILIBETH Salazar
[2024-04-29] MEDS: HYDROcodone Bitartrate/Apap 5/325 Tablet PO ×3 (11:11→22:00)
--- NOTE | 2024-04-29 12:23 | PCM.PN.ORT ---
Subjective Subjective Seen with Dr. Vasquez. POD 1 cervical fusion. He is doing well and was sitting up in chair upon arrival with cervical collar on. Does mention some dysphagia when swallowing medications. Has tolerated soft solids. Objective Data Objective Data Vital Signs: Vital Signs Temp Pulse Resp BP Pulse Ox O2 Del Method O2 Flow Rate 97.8 F 89 18 157/75 H 95 Room Air 4 04/29/24 11:03 04/29/24 11:03 04/29/24 11:03 04/29/24 11:03 04/29/24 11:03 04/29/24 11:03 04/28/24 17:45 Oxygen Flow Rate (L/min) 4 Oxygen Delivery Method Room Air Weight: 217 lb 0.016 oz Body Mass Index (BMI) 30.2 Intake & Output: Intake and Output for Last 24 Hours 04/27/24 04/28/24 04/29/24 23:59 23:59 23:59 Intake Total 1362 / 1962 1845.75 / 1845.75 Output Total 200 / 700 1100 / 1100 Balance 1162 / 1262 745.75 / 745.75 Lab / Micro Data 04/29/24 07:44 04/29/24 07:44 Labs: Laboratory Results - last 24 hr 04/29/24 07:44: WBC 19.3 H, RBC 4.71, Hgb 13.8, Hct 41.9, MCV 89.0, MCH 29.3, MCHC 32.9, RDW Std Deviation 42.2, RDW Coeff of Mejia 12.8, Plt Count 346, MPV 10.5, Sodium 135 L, Potassium 4.2, Chloride 101, Carbon Dioxide 22.0, Anion Gap 12, BUN 27 H, Creatinine 1.14, Estim Creat Clear Calc 65.93, Est GFR (MDRD) Af Amer 80, Est GFR (MDRD) Non-Af 66, BUN/Creatinine Ratio 23.7 H, Glucose 128 H, Calcium 10.0 Radiography Diagnostic Testing: Radiology Impression Cervical Spine X-Ray 04/28/24 13:27 IMPRESSION: Surgical fusion of the cervical spine. Electronically Signed: Conor Newberry DO at 16:19 EDT , Physical Exam Narrative Neurological exam of the upper and lower extremities shows 5x5 power. Decreased ROM with R ankle dorsiflexion. Normal sensations across all dermatomes. Gauze and tegaderm removed. Drain removed and incision was covered with new gauze and secured with a tegaderm. Cervical collar was placed back on. Const alert, oriented x3 and no apparent distress Assessment & Plan Assessment/Plan (1) Status post cervical spinal fusion: PLAN: Plan POD 1 C3-5 cervical fusion. Xrays obtained and look good. Pain well managed. Continue soft solids. Discussed dysphagia and educated that the dysphagia could worsen before improving. Plan to go back to TCU for therapy. PT/OT recommend TCU, encouraged ambulating with walker. Continue wearing hard collar / for the first 2 weeks.
[2024-04-29 18:09] VITALS: BP 145/72; PULSE 77; RESP 16; TEMP 36.6; O2SAT 95
[2024-04-29] MEDS: BENZOCAINE/MENTHOL 1 LOZENGE MUCOUS MEM (18:16)
[2024-04-29 20:00] VITALS: BP 155/80; PULSE 85; RESP 14; TEMP 36.6; O2SAT 98
[2024-04-30 02:00] VITALS: BP 169/93; PULSE 67; RESP 14; TEMP 36.6; O2SAT 95
[2024-04-30] MEDS: HYDROcodone Bitartrate/Apap 5/325 Tablet PO ×2 (04:26→12:21)
[2024-04-30 05:36] LABS: Absolute Lymphocyte Count 3.02 X10^3/uL (0.83-4.51); Basophil# 0.01 X10^3/uL; Basophil% 0.1 % (0-1); Eosinophil# 0.06 X10^3/uL; Eosinophils% 0.4 % (0-5); Hematocrit 37.9 % (40-54); Hemoglobin 12.7 g/dL (13.0-16.5); Lymphocyte # 3.02 X10^3/ul (0.83-4.51); Lymphocyte % 20.7 % (19-41); Mean Corp Hgb Conc 33.5 g/dL (32-36); Mean Corpuscular Hgb 30.2 pg (27.0-32.0); Mean Platelet Vol. 11.6 fl (6.2-12.0); Monocyte# 1.45 X10^3/uL; NRBC Flagged by Analyzer 0 % (0-5); Neutrophil # 9.95 X10^3/uL (2.7-7.7); Neutrophil % 68.3 % (47-70); POSITIVE COUNT YES; RBC Distribution Width CV 13.2 % (11.6-14.6); RBC Distribution Width SD 42.7 fl (35.1-43.9); Red Blood Count 4.21 M/mm3 (4.6-6.2); White Blood Count 14.6 K/mm3 (4.4-11.0)
[2024-04-30 06:03] LABS: Anion Gap 6 (5-15); BUN 26 mg/dL (7-18); BUN/Creat Ratio 29.6 RATIO (10-20); Calcium,Total 9.1 mg/dL (8.5-10.1); Chloride 102 mmol/L (98-107); Creatinine, Serum 0.88 mg/dL (0.70-1.30); EST Glomerular Filtration Rate 90 mL/min (>60); Est Glom Filt Rate - Afr Amer 109 mL/min (>60); Estimated Creatinine Clearance 85.41 ml/min; Glucose 105 mg/dL (74-106); Potassium 3.8 mmol/L (3.5-5.1); Sodium Level 134 mmol/L (136-145)
[2024-04-30 07:05] LABS: Differential Indicated SCAN CRITERIA MET
[2024-04-30 08:12] LABS: Differential Comment SCANNED; Platelet Count 194 K/mm3 (150-450)
--- NOTE | 2024-04-30 08:25 | EKG12_ITS ---
Test Reason : CP Blood Pressure : / mmHG Vent. Rate : 079 BPM Atrial Rate : 094 BPM P-R Int : 134 ms QRS Dur : 084 ms QT Int : 378 ms P-R-T Axes : 049 025 068 degrees QTc Int : 433 ms Sinus rhythm with Premature atrial complexes with Aberrant conduction Nonspecific ST and T wave abnormality Abnormal ECG No previous ECGs available Confirmed by GIULIA LOPEZ, AMANDEEP ([id number]), industrial editor GLORIA HARMON ([id number]) on 04/30/2024 2:09:09 PM Referred By: Carson Vasquez Confirmed By:AMANDEEP PLATT MD
[2024-04-30 08:36] VITALS: BP 143/74; PULSE 71; RESP 19; TEMP 36.7; O2SAT 98
[2024-04-30] MEDS: Senna/Docusate Sodium 1 Tablet 2 TABLET PO (08:43)
[2024-04-30] MEDS: Meloxicam 15 MG Tablet PO (08:43)
[2024-04-30] MEDS: Methocarbamol 500 MG Tablet 1000 MG PO (08:44)
[2024-04-30] MEDS: Ensure Surgery 237 ML LIQUID PO ×2 (08:54→11:58)
--- NOTE | 2024-04-30 08:58 | CASEMGMT ---
Social Work- SW advised that pt has precert. Physician advised d/c can be completed if medically ready. SW will continue to follow. LILIBETH Salazar
[2024-04-30] MEDS: Lactated Ringers 1,000 ML 15 ML IV (08:59)
[2024-04-30] MEDS: Lidocaine 2% Viscous15 ML UDC 15 ML PO (11:58)
--- NOTE | 2024-04-30 12:02 | CASEMGMT ---
Social Work- Pt has directives naming , Nilam, as primary agent and son, Heron, as alternate agent. Directives placed on chart. LILIBETH Salazar
[2024-04-30] MEDS: Mag Hydrox/Al Hydrox/Simeth 30 ML UDC PO (12:24)
--- NOTE | 2024-04-30 14:03 | PCM.TXEXTCAR ---
Diet Diet Order/Speech Therapy: 04/28/24 16:09 Diet: Regular - General Diet Comments: soft solids Wound(s) neck: Wound Type: Surgical Incision (Keep tegaderm and gauze clean and dry. Okay to shower chest and below. After 5 days remove tegaderm gauze and cover with a bandaid, then change bandaid daily thereafter. Wear cervical collar at all times. No bending, lifting, or twisting. ) Therapies Weight Bearing: Full weight bearing Physical Therapy: Eval and Treat Occupational Therapy: Eval and Treat Problem/Diagnosis (1) Status post cervical spinal fusion: Status: Acute Code(s): Z98.1 - Arthrodesis status Plan POD 1 C3-5 cervical fusion. Xrays obtained and look good. Pain well managed. Continue soft solids. Discussed dysphagia and educated that the dysphagia could worsen before improving. Plan to go back to TCU for therapy. PT/OT recommend TCU, encouraged ambulating with walker. Continue wearing hard collar / for the first 2 weeks. Allergies/Procedures Done in Hospital Allergies No Known Allergies Allergy (Verified 04/28/24 10:40) Type of Care/Length of Stay Estimated LOS: Convalescent Care Less Than 30 days Type of Care Needed: Skilled Rehab Potential: Good Prognosis: Good Additional Orders/Day of Discharge Day of Discharge: 04/30/24 Dietary and Speech Recommendations Dietitian Recommendations/Changes: Continue Regular diet to optimize oral intakes. Continue 237mL ensure surgery TID to provide supplemental energy Follow Up Care Please Follow Up With: Carson Vasquez MD When: 2 weeks in clinic Discharge Plan Admission Admit Date/Time: 04/28/24 16:07 Primary Reason for Your Visit: s/p cervical fusion Attending Provider: Carson Vasquez Primary Care Provider: Celeste Sinha Consulting Providers: Hernandez Cutler Instructions Patient Instructions: Cervical Fusion Dc Additional Instructions / Restrictions: Keep Tegaderm and gauze clean and dry. Okay to shower below chest. After 5 days remove Tegaderm and gauze and cover with a Band-Aid. Replace Band-Aid daily thereafter. Wear cervical collar at all times. No bending lifting or twisting. Follow-up in clinic in 2 weeks. Discharge Orders/Prescriptions Prescriptions: New hydrocodone-acetaminophen 5-325 mg Tablet 1 tab PO Q6H PRN (Reason: pain) 7 Days Qty: 28 0RF meloxicam 15 mg Tablet 15 mg PO DAILY Qty: 30 0RF methocarbamol 500 mg Tablet 750 mg PO TID PRN (Reason: pain/spasms) Qty: 30 0RF sennosides-docusate sodium [Stimulant Laxative Plus] 8.6-50 mg Tablet 2 tab PO BID PRN (Reason: constipation) Qty: 30 0RF Continued atorvastatin 20 mg tablet 20 mg PO DAILY omeprazole 40 mg capsule,delayed release(DR/EC) 40 mg PO DAILY multivitamin Tablet 1 tab PO DAILY gabapentin 300 mg capsule 600 mg PO TID melatonin 3 mg Tablet 3 mg PO QHS PRN PRN (Reason: Insomnia) Qty: 0 0RF calcium carbonate-vitamin D3 [Calcium 600 + D(3)] 600 mg-5 mcg (200 unit) tablet 1 tab PO DAILY Discontinued acetaminophen 500 mg Tablet 1,000 mg PO Q8 Qty: 0 0RF oxycodone 5 mg Tablet 5 mg PO Q4H PRN PRN (Reason: Pain Score 4-10) 2 Days Qty: 6 0RF sennosides-docusate sodium [Stimulant Laxative Plus] 8.6-50 mg Tablet 2 tab PO BID PRN PRN (Reason: Constipation) Qty: 0 0RF prednisone 20 mg tablet 40 mg PO DAILY Qty: 8 0RF Rx Instructions: Start on 04/24/2024 Referrals / Follow Up: Celeste Sinha MD [Primary Care Provider] - Disposition Disposition (needs filled in before D/C Order can be placed): Intermediate Facility
[2024-04-30 14:19] VITALS: BP 136/84; PULSE 86; RESP 16; TEMP 36.7; O2SAT 98
--- NOTE | 2024-04-30 14:21 | PN.HOSP_ITS ---
Subjective Subjective Had some chest pain relieved by GI cocktail. Leukocytosis has improved Objective Data Objective Data Vital Signs: Vital Signs Temp Pulse Resp BP Pulse Ox O2 Del Method O2 Flow Rate 98.1 F 86 16 136/84 H 98 Room Air 4 04/30/24 14:19 04/30/24 14:19 04/30/24 14:19 04/30/24 14:19 04/30/24 14:19 04/30/24 14:19 04/28/24 17:45 Oxygen Flow Rate (L/min) 4 Oxygen Delivery Method Room Air Weight: 217 lb 0.016 oz Body Mass Index (BMI) 30.2 Intake & Output: Intake and Output for Last 24 Hours 04/29/24 04/30/24 05/01/24 03:59 03:59 03:59 Intake Total 1962 / 1962 2145.75 / 2145.75 660 / 660 Output Total 700 / 700 2400 / 2400 1525 / 1525 Balance 1262 / 1262 -254.25 / -254.25 -865 / -865 Lab / Micro Data 04/30/24 05:05 04/30/24 05:05 Labs: Laboratory Results - last 24 hr 04/30/24 05:05: WBC 14.6 H, RBC 4.21 L, Hgb 12.7 L, Hct 37.9 L, MCV 90.0, MCH 30.2, MCHC 33.5, RDW Std Deviation 42.7, RDW Coeff of Mejia 13.2, Plt Count 194, MPV 11.6, Immature Gran % (Auto) 0.500, Neut % (Auto) 68.3, Lymph % (Auto) 20.7, Evans % (Auto) 10.0, Eos % (Auto) 0.4, Baso % (Auto) 0.1, Absolute Neuts (auto) 10.0 H, Absolute Lymphs (auto) 3.02, Nucleated RBC % 0, Differential Comment SCANNED, Sodium 134 L, Potassium 3.8, Chloride 102, Carbon Dioxide 26.0, Anion Gap 6, BUN 26 H, Creatinine 0.88, Estim Creat Clear Calc 85.41, Est GFR (MDRD) Af Amer 109, Est GFR (MDRD) Non-Af 90, BUN/Creatinine Ratio 29.6 H, Glucose 105, Calcium 9.1 Physical Exam Narrative General: Alert, Oriented x3, Cooperative, No apparent distress HEENT: Atraumatic, PERRLA, EOMI, Normocephalic, c-collar in place Oral: Moist Mucosa Neck: Supple, No JVD Lungs: Diminished, Normal air movement, No rhonchi, No wheeze, No rales Cardiovascular: Regular rate, Regular Rhythm, Normal S1, Normal S2, No murmurs Abdomen: Soft, Non Tender, Non-Distended, No Hepato-splenomegaly Extremities: No edema, Capillary Refill Less than 3 Seconds Skin: Anterior neck dressing CDI Musculoskeletal: No Tenderness to Palpation of Joints or Extremities Neurological: No focal neurological deficits, Motor Exam 5/5 strength throughout, Sensory exam intact to light touch and pain Psych/Mental Status: Normal Affect, Appropriate Assessment & Plan Assessment/Plan (1) Cervical spinal stenosis: PLAN: Plan 1. Cervical spine stenosis status post C3-5 anterior discectomy and fusion ? PT/OT ? Pain management per primary ? Discharge planning per primary, will likely need SNF placement 2. Hyperlipidemia and GERD are chronic medical conditions. Will continue with his home medications 3. Chest pain ? Relieved with a GI cocktail, EKG was obtained by primary service and it was negative for a STEMI or signs of ischemic changes ? Medically ready for discharge DVT: Per primary Charges/Coding Visit Charges Office Visits / Consults: 22726 OV L3 Est 20min
--- NOTE | 2024-04-30 14:33 | CASEMGMT ---
Social Work Precert has been obtained.? Physician updated and pt is ready for discharge today.? SW met with pt and they are agreeable to discharge plan as stated above. Paperwork faxed to TCU. Disposition:TCU, skilled level of care under convalescent stay. LILIBETH Salazar
--- NOTE | 2024-04-30 16:26 | PCM.PN.ORT ---
Subjective Subjective Seen with Dr. Vasquez POD 2 cervical fusion. TCU discharge. Cleared by hospitalist after chest pain and non concerning ekg. Objective Data Objective Data Vital Signs: Vital Signs Temp Pulse Resp BP Pulse Ox O2 Del Method O2 Flow Rate 98.1 F 86 16 136/84 H 98 Room Air 4 04/30/24 14:19 04/30/24 14:19 04/30/24 14:19 04/30/24 14:19 04/30/24 14:19 04/30/24 14:19 04/28/24 17:45 Oxygen Flow Rate (L/min) 4 Oxygen Delivery Method Room Air Weight: 217 lb 0.016 oz Body Mass Index (BMI) 30.2 Intake & Output: Intake and Output for Last 24 Hours 04/28/24 04/29/24 04/30/24 23:59 23:59 23:59 Intake Total 1362 / 1962 2745.75 / 2745.75 660 / 660 Output Total 200 / 700 2300 / 2900 2125 / 2125 Balance 1162 / 1262 445.75 / -154.25 -1465 / -1465 Lab / Micro Data 04/30/24 05:05 04/30/24 05:05 Labs: Laboratory Results - last 24 hr 04/30/24 05:05: WBC 14.6 H, RBC 4.21 L, Hgb 12.7 L, Hct 37.9 L, MCV 90.0, MCH 30.2, MCHC 33.5, RDW Std Deviation 42.7, RDW Coeff of Mejia 13.2, Plt Count 194, MPV 11.6, Immature Gran % (Auto) 0.500, Neut % (Auto) 68.3, Lymph % (Auto) 20.7, [place] % (Auto) 10.0, Eos % (Auto) 0.4, Baso % (Auto) 0.1, Absolute Neuts (auto) 10.0 H, Absolute Lymphs (auto) 3.02, Nucleated RBC % 0, Differential Comment SCANNED, Sodium 134 L, Potassium 3.8, Chloride 102, Carbon Dioxide 26.0, Anion Gap 6, BUN 26 H, Creatinine 0.88, Estim Creat Clear Calc 85.41, Est GFR (MDRD) Af Amer 109, Est GFR (MDRD) Non-Af 90, BUN/Creatinine Ratio 29.6 H, Glucose 105, Calcium 9.1 Physical Exam Narrative Neurological exam of the upper and lower extremities shows 5x5 power. Decreased ROM with R ankle dorsiflexion. Normal sensations across all dermatomes. Cervical collar on. Const alert, oriented x3 and no apparent distress Assessment & Plan Assessment/Plan (1) Status post cervical spinal fusion: PLAN: Plan TCU discharge for PT and OT. Patient was having chest pain but resolved with GI cocktail from the hospitalist. Continue to wear collar at all times for first 2 weeks. No bending, lifting, or twisting. Follow up in clinic in 2 weeks.
== END 2024-04-30 15:00 | disposition skilled nursing facility (03) ==
LOC: SDC 17:14 → MS3 17:53
PROVIDERS: Anesthesiology; Family Medicine; Student in an Organized Health Care Education/Training Program; Admitting Provider Orthopaedic Surgery Orthopaedic Surgery of the Spine; PCP Family Medicine; Referring Provider Orthopaedic Surgery Orthopaedic Surgery of the Spine; Visit Provider Orthopaedic Surgery Orthopaedic Surgery of the Spine
PROC: (CPT 22551; principal; 2024-04-28 12:00)
DX: M48.02 Spinal stenosis, cervical region (principal); M50.01 Cervical disc disorder with myelopathy, high cervical region; R07.9 Chest pain, unspecified; K21.9 Gastro-esophageal reflux disease without esophagitis; M21.371 Foot drop, right foot; E78.00 Pure hypercholesterolemia, unspecified; Z98.1 Arthrodesis status; Z79.899 Other long term (current) drug therapy
CPT/HCPCS: 22551; 22552; 22845; 20931; 00670; 36415; 72040; 76000; 80048; 80076; 82962; 85025; 85027; 86850; 86900; 86901; 93005; 94668; 96365; 96366; 96375; 96376; 97116; 97162; 97166; 97535; 99221; C1713; J7120; A4216; G0378; J2405; J3475

== ENCOUNTER 2024-04-30 15:14 | Inpatient (IN) | payer MEDICARE, SELFPAY ==
--- NOTE | 2024-04-30 15:24 | PCM.HP.STD ---
HPI - General General Date of Admission: 04/30/24 Date of Service: 04/30/24 Chief Complaint: Here for rehabilitation. HPI Narrative JACKLYN WU, is a 74 Male who presents with followin04/28/2024 Admit [facility]. 04/28/2024 Dr. Vasquez performed C3-5 ACDF with instrumentation. 04/29/2024 Doing well, WBC 19.3, reactive. PT/OT SNF. 04/29/2024 Sitting in chair, cervical collar in place. Dysphagia with swallowing medications. Soft solids for dysphagia. 04/30/2024 chest pain relived by GI cocktail, ekg negative stemi, negative for ischemia. WBC improved. PT/OT SNF. 04/30/2024 Admit to TCU with debility, here for rehabilitation, strengthening, prior to discharge home with . [facility] Medical History Wears glasses Alcohol use Arthritis Back pain Heartburn Gastric reflux Leg cramps History of edema Non-smoker Home Medications ?Medication ?Instructions ?Recorded ?Last Taken ?Type atorvastatin 20 mg tablet 20 mg PO DAILY HYPERLIDEMIA 01/23/24 03/04/24 21:00 History multivitamin 1 tab PO DAILY SUPPLEMENT 01/23/24 03/04/24 06:30 History omeprazole 40 mg capsule,delayed 40 mg PO DAILY GERD 01/23/24 03/05/24 04:30 History release gabapentin 300 mg capsule 600 mg PO TID NERVE PAIN 01/31/24 03/05/24 04:30 History calcium 600 mg (as 1 tab PO DAILY supplement 04/21/24 Unknown History carbonate)-vitamin D3 5 mcg (200 unit) tablet (Calcium 600 + D(3)) melatonin 3 mg tablet 3 mg PO QHS PRN PRN Insomnia #0 04/24/24 Unknown Rx tabs hydrocodone-acetaminophen 5-325mg 1 tab PO Q6H PRN pain 7 days #28 04/29/24 Unknown Rx 5mg-325mg tabs meloxicam 15 mg tablet 15 mg PO DAILY pain #30 tabs 04/29/24 04/30/24 08:40 Rx methocarbamol 500 mg tablet 750 mg (1.5 x 500 mg) PO TID PRN 04/29/24 Unknown Rx pain/spasms #30 tabs sennosides 8.6 mg-docusate sodium 2 tab PO BID PRN constipation #30 04/29/24 Unknown Rx 50 mg tablet (Stimulant Laxative tabs Plus) Allergy/AdvReac Type Severity Reaction Status Date / Time No Known Allergies Allergy Verified 04/28/24 10:40 Family History Mother , age 44 with metastatic breast CA. Breast cancer Aunt , age 55 from Breast CA. Breast cancer Father , age 60 from massive [place]. CAD (coronary artery disease) Heart disease Hypertension Myocardial infarction Surgical History (Updated 04/30/24 @ 15:[address] Yifan Hernandez MD) Status post cervical spinal fusion History of lumbar fusion History of colonoscopy History of back surgery History of knee replacement Social History household members: spouse Smoking Status: Never smoker alcohol intake: current alcohol intake frequency: 0-2 drinks per day substance use type: does not use frequency: 1-2 times per week ROS Constitutional Constitutional: Reports weakness; Denies chills, fever(s) or weight gain ENT HEENT: Denies headache(s), nasal congestion or nasal discharge Cardiovascular Cardiovascular: Denies chest pain or palpitations Respiratory/Chest Respiratory/Chest: Denies cough, excessive phlegm production or shortness of breath with exertion Gastrointestinal Gastrointestinal: Denies abdominal pain, nausea or vomiting Genitourinary Genitourinary: Denies dysuria Musculoskeletal Musculoskeletal: Denies joint pain or joint swelling Integumentary Integumentary: Denies rash or wounds Neurologic Neurologic: Denies focal weakness, numbness or tingling Psychiatric Psychiatric: Denies anxiety, auditory hallucinations, depression, homicidal ideation or suicidal ideation Physical Exam Const alert General Appearance: cooperative HEENT normocephalic HEENT Narrative: C collar in place, dressings anterior neck. Eyes PERRL and EOMs intact bilaterally Neck supple, no JVD and no carotid bruits Resp normal respiratory effort, normal air movement and clear to auscultation bilaterally Cardio regular rate and regular rhythm GI normal to inspection, nondistended, normoactive bowel sounds, non-tender and non-distended Extremity normal capillary refill General Extremity: Negative for edema Skin no rashes or lesions noted General Skin Exam: no breakdown Neuro moves all extremities Neuro Narrative: Mild weakness all 4 extremities. Psych affect normal Appearance: appropriate Assessment & Plan Assessment/Plan (1) Debility: (2) Status post cervical spinal fusion: (3) Dysphagia: (4) Chest pain: (5) Cervical spinal stenosis: (6) Hyperlipidemia: (7) Gait difficulty: (8) Neuropathic pain: (9) Insomnia: (10) GERD (gastroesophageal reflux disease): PLAN: Plan 74 year old male with below past medical history hospitalized for C3-5 anterior cervical discectomy fusion with instrumentation 04/28/[address] Vasquez, complicated by dysphagia, chest pain, reactive leukocytosis, admitted to TCU with debility, here for rehabilitation, strengthening, prior to discharge home with . Debility - PT/OT. Pain - Tylenol 1000mg q8, Oxycodone 5mg q4 prn pain (4-10), Meloxicam 15mg daily. Bowel - senna/colace 2 tablets bid, Magnesium citrate 300mL po daily prn. Adult immunization - Administer pneumonia vaccine, covid vaccine, flu vaccine as appropriate. DVT prophylaxis - Lovenox 40mg sc daily. Muscle spasm - Robaxin 750mg tid pnr. Hyperlipidemia - Atorvastatin 20mg qhs. GERD - Pantoprazole 40mg daily. Nutrition - MVI 1 tablet daily. Neuropathic pain - Gabapentin 600mg tid. Insomnia - Melatonin 3mg qhs pnr. Calcium deficiency - Calcium D 1 tablet daily.
[2024-04-30 15:44] VITALS: BP 139/72; PULSE 82; RESP 14; TEMP 36.7; O2SAT 95
[2024-04-30 15:54] VITALS: BMI 29.7
[2024-04-30 17:03] VITALS: RESP 16
[2024-04-30 18:12] VITALS: BMI 29.6
[2024-04-30] MEDS: oxyCODONE 5 MG Tablet PO (18:39)
[2024-04-30] MEDS: Gabapentin 300 MG Capsule 600 MG PO (20:56)
[2024-04-30] MEDS: Ensure Plus High Protein 120 ML LIQUID PO (20:56)
[2024-04-30] MEDS: Senna/Docusate Sodium 1 Tablet 2 TABLET PO (20:57)
[2024-04-30] MEDS: Acetaminophen 500 MG Tablet 1000 MG PO (20:57)
[2024-04-30] MEDS: MELATONIN 3 MG TABLET PO (20:59)
[2024-04-30] MEDS: Methocarbamol 750 MG Tablet PO (21:16)
[2024-05-01] MEDS: oxyCODONE 5 MG Tablet PO ×3 (02:47→17:39)
[2024-05-01 06:14] LABS: Absolute Lymphocyte Count 2.64 X10^3/uL (0.83-4.51); Absolute Neutrophil Count 4.7 X10^3/uL (2.0-7.7); Basophil# 0.01 X10^3/uL; Basophil% 0.1 % (0-1); Eosinophil# 0.14 X10^3/uL; Eosinophils% 1.6 % (0-5); Hematocrit 38.7 % (40-54); Hemoglobin 12.5 g/dL (13.0-16.5); Lymphocyte # 2.64 X10^3/ul (0.83-4.51); Lymphocyte % 30.6 % (19-41); Mean Corp Hgb Conc 32.3 g/dL (32-36); Mean Corpuscular Hgb 29.7 pg (27.0-32.0); Mean Corpuscular Volume 91.9 fL (80-94); Mean Platelet Vol. 10.7 fl (6.2-12.0); Monocyte# 1.04 X10^3/uL; Monocyte% 12.1 % (0-10); NRBC Flagged by Analyzer 0 % (0-5); Neutrophil # 4.73 X10^3/uL (2.7-7.7); Neutrophil % 54.9 % (47-70); Platelet Count 257 K/mm3 (150-450); RBC Distribution Width CV 13.4 % (11.6-14.6); RBC Distribution Width SD 45.1 fl (35.1-43.9); Red Blood Count 4.21 M/mm3 (4.6-6.2); White Blood Count 8.6 K/mm3 (4.4-11.0)
[2024-05-01 06:35] LABS: Anion Gap 4 (5-15); BUN 26 mg/dL (7-18); BUN/Creat Ratio 26.9 RATIO (10-20); Calcium,Total 9.2 mg/dL (8.5-10.1); Chloride 102 mmol/L (98-107); Creatinine, Serum 0.97 mg/dL (0.70-1.30); EST Glomerular Filtration Rate 80 mL/min (>60); Est Glom Filt Rate - Afr Amer 97 mL/min (>60); Estimated Creatinine Clearance 76.75 ml/min; Glucose 102 mg/dL (74-106); Sodium Level 137 mmol/L (136-145)
[2024-05-01] MEDS: Ensure Plus High Protein 120 ML LIQUID PO ×4 (06:39→22:02)
[2024-05-01] MEDS: Gabapentin 300 MG Capsule 600 MG PO ×3 (06:39→22:02)
[2024-05-01] MEDS: Acetaminophen 500 MG Tablet 1000 MG PO ×3 (06:40→22:03)
[2024-05-01] MEDS: Enoxaparin 40 MG/0.4 ML Syringe SC (06:41)
[2024-05-01] MEDS: Calcium Carb/Vitamin D 1 TABLET Tablet PO (09:35)
[2024-05-01] MEDS: Multivitamins,Therapeutic Tablet 1 TABLET PO (09:39)
[2024-05-01] MEDS: Meloxicam 15 MG Tablet PO (09:39)
[2024-05-01] MEDS: Pantoprazole Sodium 40 MG Tablet PO (09:39)
[2024-05-01] MEDS: Senna/Docusate Sodium 1 Tablet 2 TABLET PO ×2 (09:39→22:02)
[2024-05-01] MEDS: Tuberculin,Purif.prot.deriv. 50 TU/ML Vial 0.1 ML ID (09:52)
[2024-05-01 09:57] VITALS: BP 128/66; PULSE 83; O2SAT 96
--- NOTE | 2024-05-01 10:04 | CASEMGMT ---
Social Work SW revisited pt. Readmission from surgery. present in room. [facility]. POC meeting to be scheduled next week. SW cautioned pt to be cognizant of visitors during stay to ensure he gets his rest that is an important part to his recovery. SW discussed limiting visitors or the time of the visit. Offered to assist, if needed. Pt and agreed and will limit visitors if needed. Both appreciative of suggestion. SW will continue to follow. MAXIMO DumontW
--- NOTE | 2024-05-01 10:47 | NURSING ---
SPEECH THERAPY IN ROOM DOING A FEES TEST.
[2024-05-01 11:45] VITALS: PULSE 82; RESP 18; O2SAT 95
[2024-05-01] MEDS: 0.9% Saline Lock 10 ML Syringe IV (15:04)
--- NOTE | 2024-05-01 15:34 | NURSING ---
PT HAD FEES TEST TODAY WITH SPEECH AND FAILED. SEE NEW ORDERS. PT ALSO HAS NOT HAD BM IN 5 DAYS. PRUNE JUICE/BUTTER GIVEN. PT REFUSED MAG CITRATE. PT STATED HE TAKES MIRALAX AT HOME. NOTE LEFT FOR DR. NEWMAN ASKING FOR PRN MIRALAX.
[2024-05-01 16:00] VITALS: RESP 17; TEMP 36.4
[2024-05-01] MEDS: Polyethylene Glycol 3350 17 GM PACKET PO (17:25)
--- NOTE | 2024-05-01 19:02 | NURSING ---
NEW ORDER FOR MIRALAX,PRN. GIVEN AND PT HAD POSITIVE RESULTS/LG FORMED.
[2024-05-01] MEDS: Methocarbamol 750 MG Tablet PO (22:02)
[2024-05-01] MEDS: MELATONIN 10 MG TABLET PO (22:02)
[2024-05-01] MEDS: Atorvastatin Calcium 20 MG Tablet PO (22:03)
[2024-05-02] MEDS: oxyCODONE 5 MG Tablet PO ×2 (02:40→21:35)
[2024-05-02] MEDS: Ensure Plus High Protein 120 ML LIQUID PO ×4 (05:37→21:44)
[2024-05-02] MEDS: Gabapentin 300 MG Capsule 600 MG PO ×3 (05:37→21:36)
[2024-05-02] MEDS: Enoxaparin 40 MG/0.4 ML Syringe SC (05:38)
[2024-05-02] MEDS: Acetaminophen 500 MG Tablet 1000 MG PO ×3 (05:38→21:36)
--- NOTE | 2024-05-02 08:43 | NS ---
MST score = 4
[2024-05-02] MEDS: Multivitamin/Minerals/Iron (9 mg/15 ml) Liquid PO (09:10)
[2024-05-02] MEDS: Lansoprazole 15 MG Capsule.DR 30 MG PO (09:10)
[2024-05-02] MEDS: Calcium Carb/Vitamin D 1 TABLET Tablet PO (09:10)
[2024-05-02] MEDS: Senna/Docusate Sodium 1 Tablet 2 TABLET PO ×2 (09:10→21:36)
[2024-05-02] MEDS: Meloxicam 15 MG Tablet PO (09:10)
[2024-05-02] MEDS: Polyethylene Glycol 3350 17 GM PACKET PO (09:21)
[2024-05-02 09:23] VITALS: BP 122/67; PULSE 75; O2SAT 95
--- NOTE | 2024-05-02 09:31 | NURSING ---
Project Scheduler Note; Activity Asset: Germania Laboy is independent in his choice of daily activities. He has returned to the unit for continued therapy after surgery. Benoit prefers in room activities with family over group at this time. Family will visit daily and bring him items he may want or need. He has a smartphone and watches tv. Staff will remind him of weekly activities and respect his right to say not.
[2024-05-02 10:00] VITALS: PULSE 62; RESP 16; O2SAT 93
--- NOTE | 2024-05-02 12:27 | SP.FEES_ITS ---
FEES Patient Information Date of Evaluation: 05/01/24 Time of Evaluation: 11:10 Diagnosis: Dysphagia R13.10 Referring Physician: Yifan Hernandez Chi Staff Providing this Care/Treatment:: LEXII Direct Billable Minutes: 120 History: Past Medical History:: PMH: Wears glasses, Alcohol use, Arthritis, Back pain, Heartburn, Gastric reflux, Leg cramps, History of edema, Non-smoker. Surgical Hx: C3-5 ACDF (04/28/2024), tonsillectomy (age 6 per pt). 04/28/2024 Admit [facility]. 04/28/2024 Dr. Vasquez performed C3-5 ACDF with instrumentation. 04/29/2024 Doing well, WBC 19.3, reactive. 04/29/2024 Sitting in chair, cervical collar in place. Dysphagia with swallowing medications. Soft solids for dysphagia. 04/30/2024 chest pain relived by GI cocktail, ekg negative stemi, negative for ischemia. WBC improved. PT/OT SNF. 04/30/2024 Admit to TCU with debility, here for rehabilitation, strengthening, prior to discharge home with . Pt referred for speech therapy consult for swallowing difficulty. HAT STOCK LAMINATING MACHINE OPERATOR deferred BSE and recommended FEES for objective assessment of swallow function and aspiration risk. No hx of dysphagia prior to surgery per pt. He reports coughing w/ both solids and liquids at this time. Current Diet: Drinks/Liquids:: Thin Foods:: Regular Comment:: soft solids in comment box of diet order Respiratory Status Observation:: Room air Cognition: Observations:: WNL Position During FEES: Position During FEES:: Upright Location: In Chair Fiberoptic Endoscope: Size: 3.4 mm Nare Used:: Right Anatomical Findings: Anatomical Findings:: Upper, medial portion of the posterior pharyngeal wall appeared to have scarring consistent w/ surgical hx of tonsillectomy. Medial posterior pharyngeal constrictor and base of tongue appeared to have a whitish, irregular textured surface concerning for oral thrush. HAT STOCK LAMINATING MACHINE OPERATOR informed Dr. Hernandez of concerns. Pt?s oropharynx, hypopharynx, and laryngeal vestibule presented w/ moderate edema throughout with clear, frothy secretions pooling primarily in the vallecula. Unable to view the aryepiglottic folds and intermittent views of the arytenoids and pyriform sinuses due to edema. Epiglottic petiole appeared edematous (red and slightly raised). Decreased pharyngeal contraction evident during vocal glides. True vocal folds appeared to fully adduct during phonation tasks. During normal breathign, the pt's L vocal fold was more difficult to view due to edema. Penetration-Aspiration Scale Penetration-Aspiration Scale Thin Liquids by Teaspoon Food/Drink Provided:: Green-colored water Swallow Onset Location:: Epiglottis PAS Score: PAS Score *5 Visual Analysis of Swallowing Efficiency and Safety (VASES) after the swallow: Oropharynx, Hypopharynx, Laryngeal Vestibule and Vocal Folds VASES Comments:: Residues: 20% in vallecula, 5% in pyriforms, <5% in laryngeal vestibule and on true vocal folds Strategies Trialed:: effortful swallow = somewhat effective multiple swallows = effective cued 3, effortful swallows = effective Additional Comments:: Reflexive coughing. Unable to definitively view glottis due to edema; however, HAT STOCK LAMINATING MACHINE OPERATOR suspects aspiration w/ thin by tsp w/o use of strateg ies. Thin Liquids by Single Cup Food/Drink Provided:: Green-colored water Swallow Onset Location:: Vallecula PAS Score: PAS Score *4 Visual Analysis of Swallowing Efficiency and Safety (VASES) after the swallow: Oropharynx Comments:: Residues: 20% in vallecula Strategies Trialed:: Cued cough = somewhat effective Additional Comments:: Reflexive coughing. Unable to definitively view glottis due to edema; however, HAT STOCK LAMINATING MACHINE OPERATOR suspects aspiration w/ thin by cup. Thin Liquids by Single Straw Food/Drink Provided:: Green-colored water Swallow Onset Location:: Epiglottis PAS Score: PAS Score *5 Visual Analysis of Swallowing Efficiency and Safety (VASES) after the swallow: Oropharynx, Hypopharynx, Laryngeal Vestibule and Vocal Folds Comments:: Residues: 20% in vallecula, 10% in bilateral pyriform sinuses, 5% on ventricular folds and true vocal folds, 5% post cricoid region Strategies Trialed:: Cued cough = somewhat effective. Additional Comments:: Reflexive coughing. Unable to definitively view glottis due to edema; however, HAT STOCK LAMINATING MACHINE OPERATOR suspects aspiration w/ thin by straw. Puree Textures Food/Drink Provided:: Vanilla pudding Swallow Onset Location:: Vallecula PAS Score: PAS Score *1 Visual Analysis of Swallowing Efficiency and Safety (VASES) after the swallow: Oropharynx Comments:: Residue: 15% in vallecula Soft & Bite Sized Textures Food/Drink Provided:: Peaches in green food colored juice Swallow Onset Location:: Epiglottis PAS Score: PAS Score *2 Visual Analysis of Swallowing Efficiency and Safety (VASES) after the swallow: Oropharynx and Epiglottis Comments:: Residues: 60% in vallecula, 10% on epiglottis Strategies Trialed:: Liquid wash = not effective. Chin tuck = not effective, limited ROM due to neck collar. Additional Comments:: peaches appeared to have un-chewed pieces Diagnosis/Impressions Diagnosis: Moderate oropharyngeal dysphagia R13.13 Impressions: The oral phase is marked by... -Decreased mastication evidenced by peaches in vallecula appearing partially un- chewed. The pharyngeal phase is marked by... -Decreased pharyngeal contraction likely due severity of postoperative pharyngeal edema resulting in moderate pharyngeal residues of soft solids and liquids. Use of 3, effortful swallows were effective in clearing thin liquid residues and reducing risk for post prandial aspiration. Strategies were not effective in clearing residues of soft solids from vallecula. -Unable to definitively view aspiration due to poor view of glottis given severity of pt's edema; however, HAT STOCK LAMINATING MACHINE OPERATOR suspects aspiration of thin liquids via cup, straw, and tsp. Laryngeal penetration to the vocal folds w/o full ejection of thin by straw and thin by tsp. Recommendations Diet: Puree Textures and Thin Liquids Comments: 3, effortful swallows for each sip Compensatory Strategies: Small Bites, Liquid by Teaspoon Only, Slow Rate, Multiple Swallows, Alternate bites/solids and sips/liquids, Sitting upright and Remain sitting upright for 30 minutes after PO intake Recommend Repeat Instrumental Swallow Assessment: Yes Comments: Repeat FEES recommended early next week to consider him for further diet advancement pending pt's progress w/ trials of oral intake w/ ST. Need for Skilled Speech Therapy Services: Yes Comments: -Ongoing assessment of diet tolerance. Trialing small sips by cup/straw w/ use of strategies to decrease aspiration risk. -Training in strategies to decrease risk for aspiration. Education Completed: 1. Described result of evaluation., 2. Pt understands evaluation & agrees with goals and treatment plan. and 7. Pt requires further education on strategies & risks. Frequency Additional (Frequency): 3-5X/Week Duration: 2-4 Weeks Goals that are Established Patient/Family Goal: Advance diet to PLOF Goal #1: (LTG) The patient will consume least restrictive diet textures without overt s/s of aspiration with 90% acc with independent use of strategies to decrease risk for aspiration. Goal #2: (STG) The patient will participate in repeat FEES to objectively re- assess swallow function/aspiration risk and determine appropriateness for diet advancement.
[2024-05-02 15:38] VITALS: BP 139/72; PULSE 80; RESP 17; TEMP 36.4; O2SAT 98
[2024-05-02] MEDS: NYSTATIN 500,000 UNIT/5 ML UDC 500000 UNIT PO ×2 (17:00→21:36)
[2024-05-02] MEDS: MELATONIN 10 MG TABLET PO (21:36)
[2024-05-02] MEDS: Atorvastatin Calcium 20 MG Tablet PO (21:37)
[2024-05-03] MEDS: Enoxaparin 40 MG/0.4 ML Syringe SC (07:21)
[2024-05-03] MEDS: Acetaminophen 500 MG Tablet 1000 MG PO ×3 (07:22→22:03)
[2024-05-03] MEDS: Ensure Plus High Protein 120 ML LIQUID PO (07:22)
[2024-05-03] MEDS: Gabapentin 300 MG Capsule 600 MG PO ×3 (07:22→22:03)
[2024-05-03] MEDS: NYSTATIN 500,000 UNIT/5 ML UDC 500000 UNIT PO ×4 (07:22→22:04)
[2024-05-03] MEDS: Multivitamin/Minerals/Iron (9 mg/15 ml) Liquid PO (10:20)
[2024-05-03] MEDS: Lansoprazole 15 MG Capsule.DR 30 MG PO (10:20)
[2024-05-03] MEDS: Calcium Carb/Vitamin D 1 TABLET Tablet PO (10:20)
[2024-05-03] MEDS: Meloxicam 15 MG Tablet PO (10:21)
[2024-05-03] MEDS: Senna/Docusate Sodium 1 Tablet 2 TABLET PO ×2 (10:21→22:03)
[2024-05-03] MEDS: Polyethylene Glycol 3350 17 GM PACKET PO (11:44)
[2024-05-03 13:23] VITALS: BP 110/64; PULSE 82; RESP 16; TEMP 36.6; O2SAT 98
[2024-05-03] MEDS: oxyCODONE 5 MG Tablet PO ×2 (16:54→22:14)
--- NOTE | 2024-05-03 19:12 | PHA.CONS_ITS ---
TCU RX Drug Regimen Review Subjective/Objective Subjective/Objective: Subjective: TCU Admission. 74 YOM hospitalized for C3-5 anterior cervical discectomy fusion with instrumentation 04/28/[address] Vasquez, complicated by dysphagia, chest pain, reactive leukocytosis. Admitted to TCU with debility for strengthening and rehabilitation. Objective: Allergies No Known Allergies Allergy (Verified 04/28/24 10:40) Current Medications Generic Name Dose Route Start Last Admin Trade Name Freq PRN Reason Stop Dose Admin Acetaminophen 1,000 mg 04/30/24 22:00 05/03/24 13:49 Acetaminophen 500 Mg Tablet PO 1,000 mg Q8 AB Administration Atorvastatin Calcium 20 mg 05/01/24 22:00 05/02/24 21:37 Atorvastatin Calcium 20 Mg Tablet PO 20 mg QHS AB Administration Calcium/Vitamin D 1 tablet 05/01/24 08:00 05/03/24 10:20 Calcium Carb/Vitamin D 1 Tablet Tablet PO 1 tablet DAILYCM AB Administration Enoxaparin Sodium 40 mg 05/01/24 06:00 05/03/24 07:21 Enoxaparin 40 Mg/0.4 Ml Syringe SC 40 mg DAILY@0600 AB Administration Gabapentin 600 mg 04/30/24 22:00 05/03/24 13:51 Gabapentin 300 Mg Capsule PO 600 mg TID AB Administration Sodium Chloride 500 mls @ 15 mls/hr 04/30/24 15:46 IV .[id number] PRN Saline Flush Sodium Chloride 500 mls @ 15 mls/hr 04/30/24 15:46 IV .[id number] PRN Additional IVPB Infusion Lansoprazole 30 mg 05/02/24 10:00 05/03/24 10:20 Lansoprazole 15 Mg Capsule.Dr PO 30 mg DAILY AB Administration Lorazepam 1 mg 05/01/24 07:44 Lorazepam 1 Mg Tablet PO Q4H PRN PRN ANXIETY/RESTLESSNESS/SLEEP Magnesium Citrate 300 ml 04/30/24 16:15 Magnesium Citrate 300 Ml PO DAILY PRN CONSTIPATION Melatonin 10 mg 05/01/24 22:00 05/02/24 21:36 Melatonin 10 Mg Tablet PO 10 mg QHS PRN PRN Administration Insomnia Meloxicam 15 mg 05/01/24 10:00 05/03/24 10:21 Meloxicam 15 Mg Tablet PO 15 mg DAILY AB Administration Methocarbamol 750 mg 04/30/24 15:39 05/01/24 22:02 Methocarbamol 750 Mg Tablet PO 750 mg TID PRN Administration MUSCLE SPASM Nystatin 500,000 unit 05/02/24 17:00 05/03/24 16:50 Nystatin 500,000 Unit/5 Ml Udc PO 05/12/24 17:01 500,000 unit 4X/DAY AB Administration Oxycodone HCl 5 - 10 mg 05/01/24 07:44 05/03/24 16:54 Oxycodone 5 Mg Tablet PO 5 mg Q4H PRN PRN Administration Pain Score 1-10 or Pre PT/OT Polyethylene Glycol 17 gm 05/01/24 17:13 05/03/24 11:44 Polyethylene Glycol 3350 17 Gm Packet PO 17 gm DAILY PRN Administration Constipation Senna/Docusate Sodium 2 tablet 04/30/24 22:00 05/03/24 10:21 Senna/Docusate Sodium 1 Tablet PO 2 tablet BID AB Administration Sodium Chloride 10 - 40 ml 04/30/24 15:46 05/01/24 15:04 0.9% Saline Lock 10 Ml Syringe IV 10 ml UD PRN Administration SALINE FLUSH Tuberculin PPD 0.1 ml 05/08/24 10:00 Tuberculin,Purif.Prot.Deriv. 50 Tu/Ml Vial ID 05/08/24 10:01 X1 ONE Problem List Insomnia (Acute) Gait difficulty (Acute) Chest pain (Acute) Dysphagia (Acute) Status post cervical spinal fusion (Acute) Neuropathic pain (Acute) GERD (gastroesophageal reflux disease) (Acute) Hyperlipidemia (Acute) Cervical spinal stenosis (Acute) Debility (Acute) Vital Signs Temp Pulse Resp BP Pulse Ox O2 Del Method 97.8 F 82 16 110/64 98 Room Air 05/03/24 13:23 05/03/24 13:23 05/03/24 13:23 05/03/24 13:23 05/03/24 13:23 05/03/24 13:23 Oxygen Delivery Method Room Air Weight: 96 kg Body Mass Index (BMI) 29.6 Sodium 137 mmol/L (136-145) 05/01/24 05:23 Potassium 4.0 mmol/L (3.5-5.1) 05/01/24 05:23 Chloride 102 mmol/L (98-107) 05/01/24 05:23 Carbon Dioxide 32.0 mmol/L (21.0-32.0) 05/01/24 05:23 Anion Gap 4 (5-15) L 05/01/24 05:23 BUN 26 mg/dL (7-18) H 05/01/24 05:23 Creatinine 0.97 mg/dL (0.70-1.30) 05/01/24 05:23 Est GFR (MDRD) Af Amer 97 mL/min (>60) 05/01/24 05:23 Est GFR (MDRD) Non-Af 80 mL/min (>60) 05/01/24 05:23 BUN/Creatinine Ratio 26.9 RATIO (10-20) H 05/01/24 05:23 Glucose 102 mg/dL (74-106) 05/01/24 05:23 Assessment/Plan: 1. Pain: acetaminophen 1000mg PO Q8, oxycodone 5-10mg PO Q4H PRN pain 4-10 and meloxicam 15mg PO daily. Resident has had 5 doses of oxycodone for pain scores of 5-7 for pain in the head/neck. Please continue to monitor for increased pain, PRN usage, constipation, respiratory depression, S/S of bleeding and renal function. 2. Bowel: senna/docusate 2T PO BID, Miralax 17gm PO daily PRN constipation and magnesium citrate 300mL PO daily PRN constipation. Resident has not had any PRN doses of magnesium but has had 3 doses of Miralax. Please continue to monitor for constipation and PRN usage. Last documented bowel movement was 05/01. 3. DVT prophylaxis: enoxaparin 40mg SC daily. Please continue to monitor for S/S of bleeding/DVT, hemoglobin (last 12.5g/dL), platelets (last 254,000) and renal function. 4. Hyperlipidemia: atorvastatin 20mg PO QHS. Please continue to monitor lipid panel (last 12/19/23), LFTs (last 04/25/24) and muscle pain. 5. GERD: lansoprazole 30mg PO daily. Please continue to monitor for S/S of GERD and diarrhea (BEERs medication). 6. Muscle spasm: methocarbamol 750mg PO TID PRN muscle spasms. Resident has had 2 doses so far. Please continue to monitor for anticholinergic side effects (BEERs medication), PRN usage, drowsiness and muscle spasms. 7. Calcium deficiency/nutrition: multivitamin liquid 15ml PO DAILYCM and calcium/vitamin D 1T PO DAILYCM. Please consider ordering a vitamin D level as there is no level in the chart. Thanks. Please continue to monitor calcium (last 9.2mg/dL). 8. Insomnia: melatonin 10mg PO QHS PRN insomnia. Resident has had 2 doses so far. Please consider adding instructions for first line medication for sleep as lorazepam is also ordered PRN sleep. Thanks. Please continue to monitor for PRN usage and excessive daytime drowsiness. Assessment/Plan for indications treated with psychotropic medications: 1. Neuropathic pain: gabapentin 600mg PO TID. GDR not appropriate as this medication is being used for neuropathy. Please continue to monitor for pain, renal function, confusion and falls/fractures (BEERs medication). 2. Anxiety/restlessness/sleep: lorazepam 1mg PO Q4H PRN anxiety /restlessness/sleep. Resident has not used any doses so GDR not appropriate at this time. Please consider adding instructions for first line medication for sleep as lorazepam is also ordered PRN sleep. Thanks. Please continue to monitor for PRN usage. Medical chart and medication regimen reviewed. The following medication irregularities or issues were identified: 1. Calcium/vitamin D 1T PO DAILYCM. Please consider ordering a vitamin D level as there is no level in the chart. Thanks. 2. Melatonin 10mg PO QHS PRN insomnia and lorazepam 1mg PO Q4H PRN anxiety/restlessness/sleep. Please consider adding instructions for first line medication for sleep as lorazepam is also ordered PRN sleep. Thanks. 3. Nystatin 500,000units PO 4x/day thru 05/12/24. I did not see a documented indication. Please consider adding the indication. Thanks. Please continue to monitor for thrush. Date Date of Note:: 05/03/24
[2024-05-03] MEDS: Atorvastatin Calcium 20 MG Tablet PO (22:03)
[2024-05-04] MEDS: NYSTATIN 500,000 UNIT/5 ML UDC 500000 UNIT PO ×4 (05:45→20:58)
[2024-05-04] MEDS: Enoxaparin 40 MG/0.4 ML Syringe SC (05:45)
[2024-05-04] MEDS: Gabapentin 300 MG Capsule 600 MG PO ×3 (05:45→20:57)
[2024-05-04] MEDS: Acetaminophen 500 MG Tablet 1000 MG PO ×3 (05:46→20:56)
[2024-05-04] MEDS: Calcium Carb/Vitamin D 1 TABLET Tablet PO (09:46)
[2024-05-04] MEDS: Multivitamin/Minerals/Iron (9 mg/15 ml) Liquid PO (09:46)
[2024-05-04] MEDS: Lansoprazole 15 MG Capsule.DR 30 MG PO (09:46)
[2024-05-04] MEDS: Meloxicam 15 MG Tablet PO (09:47)
[2024-05-04] MEDS: Senna/Docusate Sodium 1 Tablet 2 TABLET PO ×2 (09:47→20:56)
[2024-05-04 11:37] VITALS: RESP 16
[2024-05-04 16:00] VITALS: BP 151/61; PULSE 76; RESP 16; TEMP 36.8; O2SAT 97
[2024-05-04] MEDS: Atorvastatin Calcium 20 MG Tablet PO (20:56)
[2024-05-04] MEDS: Methocarbamol 750 MG Tablet PO (20:58)
[2024-05-04] MEDS: oxyCODONE 5 MG Tablet PO (21:03)
[2024-05-04] MEDS: MELATONIN 10 MG TABLET PO (21:04)
[2024-05-05] MEDS: oxyCODONE 5 MG Tablet PO (01:04)
--- NOTE | 2024-05-05 04:56 | NURSING ---
Resident is asking for some sleepy time tea. Informed resident only decaf and regular black tea is stocked on the unit. Resident notes he will ask his to bring some sleepy time or Melatonin tea. Will continue to monitor.
[2024-05-05] MEDS: NYSTATIN 500,000 UNIT/5 ML UDC 500000 UNIT PO ×4 (05:53→22:45)
[2024-05-05] MEDS: Acetaminophen 500 MG Tablet 1000 MG PO ×3 (05:53→22:46)
[2024-05-05] MEDS: Enoxaparin 40 MG/0.4 ML Syringe SC (05:53)
[2024-05-05] MEDS: Gabapentin 300 MG Capsule 600 MG PO ×3 (05:53→23:03)
--- NOTE | 2024-05-05 06:27 | NURSING ---
Bathroom call light is sounding. Resident pushed bathroom door open w/ his walker. This nurse heard noise down the [place]wards. Resident was sitting on toilet and states, I thought they forgot me. Informed resident staff is changing shifts and he was not forgotten. Assisted pulling shorts up. Assisted w/ ambulation to recliner and positioned for comfort. Two pillows placed behind back. BLE elevated w/ recliner. Call light w/ in reach. Will continue to monitor.
[2024-05-05 08:55] LABS: Vitamin D,25 Hydroxy 58.4 ng/mL
[2024-05-05] MEDS: Senna/Docusate Sodium 1 Tablet 2 TABLET PO ×2 (09:15→22:45)
[2024-05-05] MEDS: Calcium Carb/Vitamin D 1 TABLET Tablet PO (09:16)
[2024-05-05] MEDS: Lansoprazole 15 MG Capsule.DR 30 MG PO (09:16)
[2024-05-05] MEDS: Meloxicam 15 MG Tablet PO (09:16)
[2024-05-05] MEDS: Multivitamin/Minerals/Iron (9 mg/15 ml) Liquid PO (09:16)
[2024-05-05 09:27] VITALS: BP 125/69; PULSE 89; O2SAT 97
[2024-05-05] MEDS: Polyethylene Glycol 3350 17 GM PACKET PO (11:02)
[2024-05-05] MEDS: COVID VAC 24-25 (12UP)(MODERNA)/PF 50 MCG/0.5 ML SYRINGE IM (14:11)
--- NOTE | 2024-05-05 14:16 | NURSING ---
COVID VACCINE GIVEN TODAY IN PT RT DELT. PT TOLERATED WELL. WILL CONTINUE TO MONITOR.
[2024-05-05 15:26] VITALS: RESP 14; TEMP 37
[2024-05-05] MEDS: Atorvastatin Calcium 20 MG Tablet PO (22:45)
[2024-05-05] MEDS: MELATONIN 10 MG TABLET PO (23:03)
[2024-05-05] MEDS: LORazepam 1 MG Tablet PO (23:03)
[2024-05-06] MEDS: Acetaminophen 500 MG Tablet 1000 MG PO ×3 (06:18→22:44)
[2024-05-06] MEDS: Gabapentin 300 MG Capsule 600 MG PO ×3 (06:19→22:44)
[2024-05-06] MEDS: NYSTATIN 500,000 UNIT/5 ML UDC 500000 UNIT PO ×4 (06:19→22:44)
[2024-05-06] MEDS: Enoxaparin 40 MG/0.4 ML Syringe SC (06:19)
[2024-05-06 08:44] VITALS: BMI 28.9
[2024-05-06] MEDS: Calcium Carb/Vitamin D 1 TABLET Tablet PO (08:46)
[2024-05-06] MEDS: Meloxicam 15 MG Tablet PO (08:46)
[2024-05-06] MEDS: Multivitamin/Minerals/Iron (9 mg/15 ml) Liquid PO (08:46)
[2024-05-06] MEDS: Lansoprazole 15 MG Capsule.DR 30 MG PO (08:46)
[2024-05-06] MEDS: Senna/Docusate Sodium 1 Tablet 2 TABLET PO ×2 (08:46→22:44)
[2024-05-06 10:51] VITALS: BP 118/69; PULSE 82; RESP 16; TEMP 36.7; O2SAT 99
--- NOTE | 2024-05-06 11:20 | NURSING ---
Call from [place] EXTERMINATOR, she'd talked with Dr. Vasquez about FEES test, he wants resident on IV decadron and to have cervical spine xrays. Updated Dr. Hernandez, verbal order received for 6mg IV Decadron daily [id number] and cervical xrays.
--- NOTE | 2024-05-06 12:20 | PCM.PN.ORT ---
Subjective Subjective Seen with Dr. Vasquez in TCU Patient with continued reports of dysphagia, he continues on a pureed diet. Spoke with speech therapy who plans to report a swallow study. He has been walking with therapy multiple times per day. States that his right leg still has some weakness. Objective Data Objective Data Vital Signs: Vital Signs Temp Pulse Resp BP Pulse Ox O2 Del Method 98.0 F 82 16 118/69 99 Room Air 05/06/24 10:51 05/06/24 10:51 05/06/24 10:51 05/06/24 10:51 05/06/24 10:51 05/06/24 10:51 Oxygen Delivery Method Room Air Weight: 207 lb 8 oz Body Mass Index (BMI) 28.9 Intake & Output: Intake and Output for Last 24 Hours 05/04/24 05/05/24 05/06/24 23:59 23:59 23:59 Intake Total 960 / 960 1080 / 1080 480 / 480 Balance 960 / 960 1080 / 1080 480 / 480 Medical Nutrition Assessment Dietitian: Malnutrition Criteria Met Start: 05/01/24 11:41 Freq: Status: Active Protocol: Document 05/01/24 11:41 MS (Rec: 05/01/24 11:41 MS [id number]) Nutrition Malnutrition Evidence of Malnutrition Exists Yes Malnutrition (moderate): Acute Illness/Injury Malnutrition (unspecified) Moderate pro/lakesha Evidenced By Suboptimal Energy Intake ( Moderate),Weight Loss (Severe) Intake Problem Increased Nutrient Needs (specify) Etiology (protein) for wound healing Signs/Symptoms Patient is s/p cervical fusion on 04/28/24 with surgical incision on neck Status Active Problem Clinical Problem Acute Disease or Injury Related Malnutrition Etiology related to acute condition as is pertains to cervical spine injury and surgery Signs/Symptoms Weight loss of 4kg (4%, x 8 days) and PO intake <75% x 5 days Status Active Problem Recommendation Dietitian Recommendations/Changes Continue regular diet Continue Ensure PHP 4x/day with medpaass to help meet energy and protein goals Order Jose Luis BID to support wound healing Lab / Micro Data 05/01/24 05:23 05/01/24 05:23 Physical Exam Narrative Neurological exam of the upper extremities shows 5x5 power. Normal sensations across all dermatomes. Decreased ROM of right foot dorsiflexion, 4 strength. Patient unable to fully lift knee off of the chair. No edema noticed. Gauze and tape removed. Patient took off hard collar to swallow and feels that it might be slightly easier. Const alert, oriented x3 and no apparent distress Assessment & Plan Assessment/Plan (1) Status post cervical spinal fusion: PLAN: Plan POD #8 cervical fusion Continue OT/PT to increase strength and balance to increase safety for home return. Speech will continue to work on advancing patient from a pureed diet. Okay to remove hard collar at meal times, place hard collar back on afterwards. Xrays ordered. IV dexamethasone.
--- NOTE | 2024-05-06 13:02 | RAD_ITS ---
EXAM: XR CERVICAL SPINE, 4 OR 5 VIEWS CLINICAL INDICATION: throat edema/recent cervical fusion TECHNIQUE: Frontal, lateral and bilateral oblique views of the cervical spine. COMPARISON: 04/29/2024. FINDINGS: VERTEBRAE: Status post anterior cervical fusion C3-C5 in good alignment. Preserved vertebral body height. No acute fracture. No spondylolisthesis. Preservation of the normal cervical lordosis. No significant facet arthropathy. DISC SPACES: Moderate degenerative disc disease C5-C6 and C6-C7 unchanged. SOFT TISSUES: Unremarkable. No prevertebral soft tissue widening. LUNG APICES: Clear. RAD/Cerv Spine 4 or 5 Views IMPRESSION: 1. Status post anterior cervical fusion C3-C5 in good alignment. 2. Moderate degenerative disc disease C5-C6 and C6-C7 unchanged. 3. No acute cervical spine abnormality. No change since previous exam. Electronically Signed: Francesco Boone MD at 0:54 EDT ,
[2024-05-06] MEDS: dexAMETHasone 10 MG/ML Vial 6 MG IV (16:54)
[2024-05-06] MEDS: 0.9% Saline Lock 10 ML Syringe IV (17:01)
[2024-05-06] MEDS: MELATONIN 10 MG TABLET PO (22:44)
[2024-05-06] MEDS: Methocarbamol 750 MG Tablet PO (22:44)
[2024-05-06] MEDS: Atorvastatin Calcium 20 MG Tablet PO (22:44)
[2024-05-07] MEDS: Gabapentin 300 MG Capsule 600 MG PO ×3 (05:57→21:35)
[2024-05-07] MEDS: NYSTATIN 500,000 UNIT/5 ML UDC 500000 UNIT PO ×4 (05:58→21:31)
[2024-05-07] MEDS: Acetaminophen 500 MG Tablet 1000 MG PO ×3 (05:58→21:31)
[2024-05-07] MEDS: Enoxaparin 40 MG/0.4 ML Syringe SC (05:58)
[2024-05-07] MEDS: Methocarbamol 750 MG Tablet PO ×2 (05:58→21:32)
--- NOTE | 2024-05-07 09:03 | NURSING ---
Admissions Counselor Note; MDS for 05/07/2024 Complete
[2024-05-07] MEDS: Multivitamin/Minerals/Iron (9 mg/15 ml) Liquid PO (09:27)
[2024-05-07] MEDS: Calcium Carb/Vitamin D 1 TABLET Tablet PO (09:27)
[2024-05-07] MEDS: Senna/Docusate Sodium 1 Tablet 2 TABLET PO ×2 (09:28→21:31)
[2024-05-07] MEDS: Meloxicam 15 MG Tablet PO (09:28)
[2024-05-07] MEDS: Lansoprazole 15 MG Capsule.DR 30 MG PO (09:28)
[2024-05-07 09:39] VITALS: BP 135/74; PULSE 86; O2SAT 96
--- NOTE | 2024-05-07 09:58 | SP.FEES_ITS ---
FEES Patient Information Date of Evaluation: 05/05/24 Time of Evaluation: 14:25 Diagnosis: Dysphagia R13.10 Referring Physician: Yifan Hernandez Chi Staff Providing this Care/Treatment:: LEXII Direct Billable Minutes: 47 History: Past Medical History:: Wears glasses, Alcohol use, Arthritis, Back pain, Heartburn, Gastric reflux, Leg cramps, History of edema, Non-smoker. Surgical Hx: C3-5 ACDF (04/28/2024), tonsillectomy (age 6 per pt). 04/28/2024 Admit [facility]. 04/28/2024 Dr. Vasquez performed C3-5 ACDF with instrumentation. 04/29/2024 Doing well, WBC 19.3, reactive. 04/29/2024 Sitting in chair, cervical collar in place. Dysphagia with swallowing medications. Soft solids for dysphagia. 04/30/2024 chest pain relived by GI cocktail, ekg negative stemi, negative for ischemia. WBC improved. PT/OT SNF. 04/30/2024 Admit to TCU with debility, here for rehabilitation, strengthening, prior to discharge home with . Pt referred for speech therapy consult for swallowing difficulty. WEIGH AND CHARGE WORKER deferred BSE and recommended FEES for objective assessment of swallow function and aspiration risk. No hx of dysphagia prior to surgery per pt. He reported coughing w/ both solids and liquids upon admission to TCU. FEES 05/01/2024 revealed moderate postoperative edema, concerns for thrush, and moderate oropharyngeal dysphagia. He was recommended for Puree Textures / Thin Liquids with the following Compensatory Strategies: 3 effortful swallows for each sip, Small Bites, Liquid by Teaspoon Only, Slow Rate, Multiple Swallows, Alternate bites/solids and sips/liquids, Sitting upright and Remain sitting upright for 30 minutes after PO intake. Plan for repeat FEES early next week to consider him for further diet advancement. Current Diet: Drinks/Liquids:: Thin Foods:: Pureed Medication Administration:: crushed in puree Respiratory Status Observation:: Room air Dentition/Oral Hygiene: Observations:: Missing a few teeth, no partials Vocal Quality: Observations:: WFL Cognition: Observations:: WNL Position During FEES: Position During FEES:: Upright Location: In Chair Fiberoptic Endoscope: Size: 3.4 mm Nare Used:: Left Comments: Scope passed through L nare without difficulty Anatomical Findings: Anatomical Findings:: Upper, medial portion of the posterior pharyngeal wall presented w/ scarring consistent w/ surgical hx of tonsillectomy observed during previous FEES. Whitish, irregular textured surface on medial posterior pharyngeal constrictor and base of tongue concerning for oral thrush appears resolved ? pt has been using Nystatin swish over the weekend. Pt?s oropharynx, hypopharynx, and laryngeal vestibule presented w/ continued moderate edema appearing slightly worse than previous FEES. Tissue was reddish-pink throughout oropharynx, hypopharynx, and laryngeal vestibule. Of note, patient had a hard coughing episode just prior to FEES being completed. Clear secretions pooling in the oropharynx, primarily in the vallecula and on the lateral margins of the epiglottis. Epiglottis appeared somewhat asymmetrical. Unable to view the aryepi glottic folds due to edema. Continued intermittent views of the arytenoids and pyriform sinuses. Epiglottic petiole remained edematous (red and slightly raised). Decreased pharyngeal contraction evident during vocal glides. True vocal folds still appear to fully adduct during phonation tasks. During normal breathing, the pt's L arytenoid and L vocal fold were more difficult to view due to edema. Penetration-Aspiration Scale Penetration-Aspiration Scale Thin Liquids by Teaspoon Food/Drink Provided:: Green-colored water Swallow Onset Location:: Tongue Base PAS Score: PAS Score *5 Visual Analysis of Swallowing Efficiency and Safety (VASES) after the swallow: Oropharynx, Epiglottis, Laryngeal Vestibule and Vocal Folds VASES Comments:: Residues: <5% upper posterior pharyngeal wall, 10% in vallecula, 5% posterior surface of the epiglottis, 10% in laryngeal vestibule and on true vocal folds Strategies Trialed:: Multiple swallows = somewhat effective Cued cough and re-swallow = effective Additional Comments:: Cannot definitively rule out aspiration. Unable to view glottis due to edema. Puree Textures Food/Drink Provided:: Vanilla pudding Swallow Onset Location:: Tongue Base PAS Score: PAS Score *1 Visual Analysis of Swallowing Efficiency and Safety (VASES) after the swallow: Oropharynx and Epiglottis Comments:: Residue: 20% of bolus in vallecula, 5% on L lateral margin of epiglottis Strategies Trialed:: Multiple swallows = somewhat effective Diagnosis/Impressions Diagnosis: Moderate oropharyngeal dysphagia R13.12 Impressions: Oral phase comments... -Did not trials solids due to WEIGH AND CHARGE WORKER concerns for slightly worsened postoperative edema and concerns for risk for choking due to poor pharyngeal clearance of small bolus sizes trialed. The pharyngeal phase is marked by... -Decreased pharyngeal contraction likely due to continued postoperative pharyngeal edema. Patient has moderate pharyngeal residues. Use of multiple swallows were somewhat effective in decreasing pharyngeal residues and risk for post prandial aspiration. -WEIGH AND CHARGE WORKER is still unable to definitively view aspiration due to poor view of glottis given continued edema; however, WEIGH AND CHARGE WORKER suspects aspiration of thin liquids via tsp. Pt has decreased airway closure likely secondary to edema. Use of cough and re- swallow was most effective in decreasing risk for aspiration of liquids. Recommendations Diet: Puree Textures and Thin Liquids Medication Administration:: Crushed in puree Comments: 3, effortful swallows for each sip, Intermittent cough and re-swallow, Small Bites, Liquid by Teaspoon Only, Slow Rate, Multiple Swallows, Alternate bites/solids and sips/liquids, Sitting upright and Remain sitting upright for 30 minutes after PO intake, Oral care before and after meals Compensatory Strategies: Small Bites, Liquid by Teaspoon Only, Slow Rate, Multiple Swallows, Alternate bites/solids and sips/liquids, Sitting upright and Remain sitting upright for 30 minutes after PO intake Recommend Repeat Instrumental Swallow Assessment: Yes Comments: Repeat FEES in ~1 week to allow time for healing of post operative edema. WEIGH AND CHARGE WORKER placed a call to surgeon, Dr. Vasquez, to inform him of concerns for slightly worse edema on today's FEES as compared to FEES completed on 05/02/2024. Need for Skilled Speech Therapy Services: Yes Comments: -Training in oral care regimen and strategies to decrease risk for aspiration. -Ongoing assessment of diet tolerance with close monitoring of respiratory status. Education Completed: 1. Described result of evaluation. and 2. Pt understands evaluation & agrees with goals and treatment plan.
--- NOTE | 2024-05-07 09:59 | CASEMGMT ---
Social Work IDT met with patient, and son for care plan meeting. Discussed patient's progress in PT/OT/ST/SN. Educated to [employer] insurance with NRD 05/12, EDC 05/15. Provided family with written communication on insurance process and copay coverage during stay. Pt's goal is to return home with closer to PLOF. Pt is wearing a kotlik J collar and having swelling issues in his throat. Pt and IDT requesting that is further resolved prior to DC. SW will continue to follow for DC planning. Jenna Tirado, MOLDED GOODS OPERATOR INDUSTRIAL MAINTENANCE MANAGER
[2024-05-07] MEDS: dexAMETHasone 10 MG/ML Vial 6 MG IV (10:23)
[2024-05-07] MEDS: 0.9% Saline Lock 10 ML Syringe IV ×2 (10:24→21:36)
[2024-05-07 10:45] VITALS: PULSE 75; RESP 18; O2SAT 98
[2024-05-07 13:16] VITALS: RESP 16; TEMP 37
--- NOTE | 2024-05-07 13:47 | CASEMGMT ---
PHQ9 (0) and BIMS () interviews completed on this date for MDS assessment. LILIBETH Desir
[2024-05-07] MEDS: Atorvastatin Calcium 20 MG Tablet PO (21:31)
[2024-05-07] MEDS: MELATONIN 10 MG TABLET PO (21:31)
[2024-05-08 06:02] LABS: Absolute Lymphocyte Count 1.85 X10^3/uL (0.83-4.51); Absolute Neutrophil Count 5.4 X10^3/uL (2.0-7.7); Basophil# 0.01 X10^3/uL; Basophil% 0.1 % (0-1); Eosinophil# 0.01 X10^3/uL; Eosinophils% 0.1 % (0-5); Hematocrit 34.9 % (40-54); Hemoglobin 11.8 g/dL (13.0-16.5); Lymphocyte # 1.85 X10^3/ul (0.83-4.51); Lymphocyte % 22.5 % (19-41); Mean Corp Hgb Conc 33.8 g/dL (32-36); Mean Corpuscular Hgb 30.2 pg (27.0-32.0); Mean Corpuscular Volume 89.3 fL (80-94); Mean Platelet Vol. 10.8 fl (6.2-12.0); Monocyte# 0.92 X10^3/uL; Monocyte% 11.2 % (0-10); NRBC Flagged by Analyzer 0 % (0-5); Neutrophil # 5.38 X10^3/uL (2.7-7.7); Neutrophil % 65.6 % (47-70); Platelet Count 209 K/mm3 (150-450); RBC Distribution Width CV 13.1 % (11.6-14.6); RBC Distribution Width SD 42.7 fl (35.1-43.9); Red Blood Count 3.91 M/mm3 (4.6-6.2); White Blood Count 8.2 K/mm3 (4.4-11.0)
[2024-05-08] MEDS: Acetaminophen 500 MG Tablet 1000 MG PO ×3 (06:02→21:44)
[2024-05-08] MEDS: Gabapentin 300 MG Capsule 600 MG PO ×3 (06:03→21:43)
[2024-05-08] MEDS: NYSTATIN 500,000 UNIT/5 ML UDC 500000 UNIT PO ×4 (06:03→21:45)
[2024-05-08] MEDS: Enoxaparin 40 MG/0.4 ML Syringe SC (06:03)
[2024-05-08 06:28] LABS: Anion Gap 5 (5-15); BUN 31 mg/dL (7-18); BUN/Creat Ratio 34.7 RATIO (10-20); Calcium,Total 9.4 mg/dL (8.5-10.1); Chloride 105 mmol/L (98-107); Creatinine, Serum 0.89 mg/dL (0.70-1.30); EST Glomerular Filtration Rate 88 mL/min (>60); Est Glom Filt Rate - Afr Amer 106 mL/min (>60); Estimated Creatinine Clearance 82.72 ml/min; Glucose 115 mg/dL (74-106); Potassium 3.7 mmol/L (3.5-5.1); Sodium Level 138 mmol/L (136-145)
[2024-05-08] MEDS: Senna/Docusate Sodium 1 Tablet 2 TABLET PO ×2 (10:15→21:45)
[2024-05-08] MEDS: dexAMETHasone 10 MG/ML Vial 6 MG IV (10:18)
[2024-05-08] MEDS: Multivitamin/Minerals/Iron (9 mg/15 ml) Liquid PO (10:19)
[2024-05-08] MEDS: Calcium Carb/Vitamin D 1 TABLET Tablet PO (10:19)
[2024-05-08] MEDS: Meloxicam 15 MG Tablet PO (10:20)
[2024-05-08] MEDS: Lansoprazole 15 MG Capsule.DR 30 MG PO (10:20)
[2024-05-08] MEDS: Tuberculin,Purif.prot.deriv. 50 TU/ML Vial 0.1 ML ID (10:26)
[2024-05-08 10:30] VITALS: PULSE 76; RESP 18; O2SAT 94
[2024-05-08 10:31] VITALS: BP 113/71; PULSE 76; O2SAT 94
[2024-05-08 15:40] VITALS: RESP 16; TEMP 35.9
[2024-05-08] MEDS: 0.9% Saline Lock 10 ML Syringe IV (21:43)
[2024-05-08] MEDS: Atorvastatin Calcium 20 MG Tablet PO (21:47)
[2024-05-08] MEDS: Methocarbamol 750 MG Tablet PO (21:48)
[2024-05-08] MEDS: MELATONIN 10 MG TABLET PO (21:53)
[2024-05-09] MEDS: Acetaminophen 500 MG Tablet 1000 MG PO ×3 (05:13→20:01)
[2024-05-09] MEDS: Gabapentin 300 MG Capsule 600 MG PO ×3 (05:13→20:01)
[2024-05-09] MEDS: NYSTATIN 500,000 UNIT/5 ML UDC 500000 UNIT PO ×4 (05:14→20:01)
[2024-05-09] MEDS: Enoxaparin 40 MG/0.4 ML Syringe SC (05:14)
[2024-05-09] MEDS: Calcium Carb/Vitamin D 1 TABLET Tablet PO (08:49)
[2024-05-09] MEDS: Senna/Docusate Sodium 1 Tablet 2 TABLET PO (08:49)
[2024-05-09] MEDS: Multivitamin/Minerals/Iron (9 mg/15 ml) Liquid PO (08:49)
[2024-05-09] MEDS: Meloxicam 15 MG Tablet PO (08:49)
[2024-05-09] MEDS: Lansoprazole 15 MG Capsule.DR 30 MG PO (08:49)
[2024-05-09] MEDS: dexAMETHasone 10 MG/ML Vial 6 MG IV (10:12)
[2024-05-09] MEDS: 0.9% Saline Lock 10 ML Syringe IV (10:34)
--- NOTE | 2024-05-09 12:25 | SP.FEES_ITS ---
FEES Patient Information Date of Evaluation: 05/09/24 Time of Evaluation: 10:30 Diagnosis: Dysphagia R13.10 Referring Physician: Yifan Hernandez Chi Staff Providing this Care/Treatment:: LEXII Direct Billable Minutes: 118 History: Past Medical History:: Wears glasses, Alcohol use, Arthritis, Back pain, Heartburn, Gastric reflux, Leg cramps, History of edema, Non-smoker. Surgical Hx: C3-5 ACDF (04/28/2024), tonsillectomy (age 6 per pt). 04/28/2024 Admit [facility]. 04/28/2024 Dr. Vasquez performed C3-5 ACDF with instrumentation. 04/29/2024 Doing well, WBC 19.3, reactive. 04/29/2024 Sitting in chair, cervical collar in place. Dysphagia with swallowing medications. Soft solids for dysphagia. 04/30/2024 chest pain relived by GI cocktail, ekg negative stemi, negative for ischemia. WBC improved. PT/OT SNF. 04/30/2024 Admit to TCU with debility, here for rehabilitation, strengthening, prior to discharge home with . Pt referred for speech therapy consult for swallowing difficulty. TREASURY CONSULTANT deferred BSE and recommended FEES for objective assessment of swallow function and aspiration risk. No hx of dysphagia prior to surgery per pt. He reported coughing w/ both solids and liquids upon admission to TCU. FEES 05/01/2024 revealed moderate postoperative edema, concerns for thrush, and moderate oropharyngeal dysphagia. He was recommended for Puree Textures / Thin Liquids with the following Compensatory Strategies: 3 effortful swallows for each sip, Small Bites, Liquid by Teaspoon Only, Slow Rate, Multiple Swallows, Alternate bites/solids and sips/liquids, Sitting upright and Remain sitting upright for 30 minutes after PO intake. Repeat FEES Sunday04/05/2024 revealed continued moderate oropharyngeal dysphagia w/ slightly worse postoperative edema. Continue puree / thin w/ above mentioned strategies with TREASURY CONSULTANT adding increased oral care regimen and intermittent cough and re-swallow to precautions and strategies. TREASURY CONSULTANT contact Dr. Vasquez who started pt on IV decadron. Plan for repeat FEES today to re-evaluate swallow function and consider him for further diet advancement. Current Diet: Drinks/Liquids:: Thin Foods:: Pureed Medication Administration:: crushed in puree Respiratory Status Observation:: Room air Dentition/Oral Hygiene: Observations:: Missing a few teeth, no partials Vocal Quality: Observations:: WFL Cognition: Observations:: WNL Position During FEES: Position During FEES:: Upright Location: In Chair Fiberoptic Endoscope: Size: 3.4 mm Nare Used:: Left Comments: Scope passed through L nare without difficulty Anatomical Findings: Anatomical Findings:: Upper, medial portion of the posterior pharyngeal wall presented w/ scarring consistent w/ surgical hx of tonsillectomy observed during previous 2 FEES. Pt?s oropharynx, hypopharynx, and laryngeal vestibule presented w/ continued moderate edema appearing slightly worse than previous FEES. Whitish, surface on tongue base and upper portion of posterior pharyngeal wall. Tissue continued to be reddish-pink throughout oropharynx, hypopharynx, and laryngeal vestibule. Whitish, frothy secretions in the in the oropharynx, primarily in the vallecula. Epiglottis appeared unchanged from previous assessment - mild edema, slightly edematous. TREASURY CONSULTANT was able to view the aryepiglot tic folds, arytenoids, and subglottis as the patient breathed at rest, which were not visible previous FEES. Intermittent views of the pyriform sinuses. Epiglottic petiole remained edematous (red and raised). Decreased pharyngeal contraction evident during vocal glides. True vocal folds still appear to fully adduct during phonation tasks. Penetration-Aspiration Scale Penetration-Aspiration Scale Thin Liquids by Teaspoon Food/Drink Provided:: Green colored water Swallow Onset Location:: Vallecula PAS Score: PAS Score *5 Visual Analysis of Swallowing Efficiency and Safety (VASES) after the swallow: Hypopharynx, Laryngeal Vestibule and Vocal Folds VASES Comments:: Residues: 10% vallecula, 10% pyriform sinuses, <5% medial edge of left aryepiglottic fold, <5% true vocal folds. Strategies Trialed:: Multiple swallows = somewhat effective Cued cough and re-swallow = effective Thin Liquids by Single Cup Food/Drink Provided:: Green colored water Swallow Onset Location:: Vallecula PAS Score: PAS Score *5 Visual Analysis of Swallowing Efficiency and Safety (VASES) after the swallow: Oropharynx, Hypopharynx, Epiglottis and Vocal Folds Comments:: Residues: 10% vallecula, 5% pyriform sinuses, <5% true vocal folds, <5% lateral margin (L) of epiglottis Strategies Trialed:: Double, effortful swallow = somewhat effective Thin Liquids by Single Straw Food/Drink Provided:: Green colored water Swallow Onset Location:: Epiglottis PAS Score: PAS Score *5 Visual Analysis of Swallowing Efficiency and Safety (VASES) after the swallow: Oropharynx, Hypopharynx, Laryngeal Vestibule and Vocal Folds Comments:: Residues: 15% vallecula, 5% pyriform sinuses, <5% true vocal folds, <5% inter-arytenoid tissue Strategies Trialed:: Effortful, double swallow = somewhat effective Additional Comments:: coughing when used as a liquid wash to attempt clearing peach residues Puree Textures Food/Drink Provided:: vanilla pudding Swallow Onset Location:: Vallecula PAS Score: PAS Score *1 Visual Analysis of Swallowing Efficiency and Safety (VASES) after the swallow: Oropharynx and Epiglottis Comments:: Residues: 20% vallecula, 15% lateral margin (L) of epiglottis. Strategies Trialed:: multiple swallows = effective Soft & Bite Sized Textures Food/Drink Provided:: Green-colored peaches w/ juice Swallow Onset Location:: Vallecula PAS Score: PAS Score *5 Visual Analysis of Swallowing Efficiency and Safety (VASES) after the swallow: Oropharynx, Hypopharynx, Epiglottis and Vocal Folds Comments:: Residues: 70% vallecula (peaches), <5% true vocal folds (green juice), 5% R pyriforms (peaches), 5% L aryepiglottic folds, 5% L lateral margin of the epiglottis. Strategies Trialed:: Liquid wash X2 = somewhat effective Multiple swallows (4) = not effective Diagnosis/Impressions Diagnosis: Moderate pharyngeal dysphagia R13.13 Impressions: Today, peach appeared fully chewed. The pharyngeal phase is marked by... -Continued deficits in pharyngeal contraction secondary to continued postoperative pharyngeal edema; however, edema and pharyngeal clearance were somewhat improved from previous trials. Majority of thin liquid and pudding thick residue cleared w/ 2-3 swallows; however, peach required >4 swallows and 2 liquid washes to fully clear from the vallecula. -Trace laryngeal penetration of thin liquids via tsp, cup, and straw to the vocal folds. Reflexive cough 1X w/ thin liquid wash via cup to attempt clearing peaches. Double, effortful swallow was somewhat effective in decreasing risk for aspiration of liquids. Recommendations Diet: Puree Textures and Thin Liquids Medication Administration:: Crushed in puree Comments: 2-3 effortful swallows for each sip, 3 swallows per bite, Intermittent cough and re-swallow, Small Bites, Small Sips, Slow Rate, Alternate bites/solids and sips/liquids, Sitting upright and Remain sitting upright for 30 minutes after PO intake, Oral care before and after meals. Recommend Repeat Instrumental Swallow Assessment: Yes Comments: Repeat FEES planned 05/12/2024 Need for Skilled Speech Therapy Services: Yes Comments: Continue per TCU dysphagia POC Education Completed: 1. Described result of evaluation. and 2. Pt understands evaluation & agrees with goals and treatment plan. Comments: TREASURY CONSULTANT sent backline message of results and recommendations of FEES to Dr. Vasquez and Dr. Hernandez, also informing them of continued mild-moderate postoperative edema. TREASURY CONSULTANT, [place], informed Dr. Hernandez of continued whitish coating in oropharynx.
[2024-05-09 14:25] VITALS: BP 134/72; PULSE 79; RESP 16; TEMP 36.5; O2SAT 97
[2024-05-09] MEDS: LORazepam 1 MG Tablet PO (20:00)
[2024-05-09] MEDS: Atorvastatin Calcium 20 MG Tablet PO (20:01)
[2024-05-10] MEDS: NYSTATIN 500,000 UNIT/5 ML UDC 500000 UNIT PO ×4 (05:22→22:42)
[2024-05-10] MEDS: Gabapentin 300 MG Capsule 600 MG PO ×3 (05:22→22:41)
[2024-05-10] MEDS: Enoxaparin 40 MG/0.4 ML Syringe SC (05:22)
[2024-05-10] MEDS: Acetaminophen 500 MG Tablet 1000 MG PO ×3 (05:22→22:42)
[2024-05-10] MEDS: Multivitamin/Minerals/Iron (9 mg/15 ml) Liquid PO (09:26)
[2024-05-10] MEDS: Calcium Carb/Vitamin D 1 TABLET Tablet PO (09:26)
[2024-05-10] MEDS: Senna/Docusate Sodium 1 Tablet 2 TABLET PO ×2 (09:27→22:43)
[2024-05-10] MEDS: Lansoprazole 15 MG Capsule.DR 30 MG PO (09:27)
[2024-05-10] MEDS: Meloxicam 15 MG Tablet PO (09:27)
[2024-05-10 09:48] VITALS: BP 135/68; PULSE 80; RESP 18; TEMP 36.3; O2SAT 96
[2024-05-10 10:00] VITALS: RESP 18
[2024-05-10] MEDS: dexAMETHasone 10 MG/ML Vial 6 MG IV (10:28)
[2024-05-10] MEDS: 0.9% Saline Lock 10 ML Syringe IV (10:30)
[2024-05-10] MEDS: MELATONIN 10 MG TABLET PO (22:41)
[2024-05-10] MEDS: Atorvastatin Calcium 20 MG Tablet PO (22:43)
[2024-05-11] MEDS: Acetaminophen 500 MG Tablet 1000 MG PO ×3 (06:23→22:08)
[2024-05-11] MEDS: Gabapentin 300 MG Capsule 600 MG PO ×3 (06:23→22:07)
[2024-05-11] MEDS: NYSTATIN 500,000 UNIT/5 ML UDC 500000 UNIT PO ×4 (06:23→22:07)
[2024-05-11] MEDS: Enoxaparin 40 MG/0.4 ML Syringe SC (06:23)
[2024-05-11 06:30] VITALS: PULSE 68; O2SAT 98
[2024-05-11] MEDS: 0.9% Saline Lock 10 ML Syringe IV ×2 (06:34→09:25)
[2024-05-11 09:20] VITALS: BP 132/72; PULSE 75; RESP 17; TEMP 36.2; O2SAT 100
[2024-05-11] MEDS: Multivitamin/Minerals/Iron (9 mg/15 ml) Liquid PO (09:21)
[2024-05-11] MEDS: Calcium Carb/Vitamin D 1 TABLET Tablet PO (09:22)
[2024-05-11] MEDS: Lansoprazole 15 MG Capsule.DR 30 MG PO (09:22)
[2024-05-11] MEDS: dexAMETHasone 10 MG/ML Vial 6 MG IV (09:22)
[2024-05-11] MEDS: Meloxicam 15 MG Tablet PO (09:23)
[2024-05-11] MEDS: Polyethylene Glycol 3350 17 GM PACKET PO (09:31)
[2024-05-11] MEDS: Senna/Docusate Sodium 1 Tablet 2 TABLET PO (22:07)
[2024-05-11] MEDS: LORazepam 1 MG Tablet PO (22:07)
[2024-05-11] MEDS: Atorvastatin Calcium 20 MG Tablet PO (22:07)
[2024-05-12] MEDS: Gabapentin 300 MG Capsule 600 MG PO ×3 (06:40→21:48)
[2024-05-12] MEDS: Enoxaparin 40 MG/0.4 ML Syringe SC (06:41)
[2024-05-12] MEDS: NYSTATIN 500,000 UNIT/5 ML UDC 500000 UNIT PO ×3 (06:41→16:50)
[2024-05-12] MEDS: Acetaminophen 500 MG Tablet 1000 MG PO ×3 (06:41→21:39)
[2024-05-12] MEDS: Calcium Carb/Vitamin D 1 TABLET Tablet PO (09:19)
[2024-05-12] MEDS: Multivitamin/Minerals/Iron (9 mg/15 ml) Liquid PO (09:19)
[2024-05-12] MEDS: Lansoprazole 15 MG Capsule.DR 30 MG PO (09:19)
[2024-05-12] MEDS: Senna/Docusate Sodium 1 Tablet 2 TABLET PO ×2 (09:20→21:38)
[2024-05-12] MEDS: Meloxicam 15 MG Tablet PO (09:20)
[2024-05-12 09:29] VITALS: BP 146/73; PULSE 59; RESP 18; O2SAT 97
[2024-05-12] MEDS: dexAMETHasone 10 MG/ML Vial 6 MG IV (11:10)
[2024-05-12] MEDS: 0.9% Saline Lock 10 ML Syringe IV ×2 (11:11→21:40)
--- NOTE | 2024-05-12 12:42 | MDS.RN ---
Information for the MDS was obtained from review of the clinical record, interview of resident, staff, and direct observation of resident?s care.
--- NOTE | 2024-05-12 14:28 | CASEMGMT ---
Social Work OT notified this worker that pt had major difficulty with STS from the shower bench this morning and became discouraged. SW met with pt at bedside. present. SW inquired how pt was doing and explored further on pt's feelings on OT ADL, and overall improvement. Pt spoke with this worker at length expressing feelings. SW provided validation to feelings, empathized and provided emotional support. Acknowledged the difficulties of loss of independence and strength. Pt explained having difficulty sleeping the last several nights, which SW explored and pt noted it was d/t not being able to stop his thoughts. Pt did ask and received Ativan last night, which he was able to sleep well after that dose. SW discussed mind racing and grounding techniques, but also educated that Ativan can be used at any time, aside from nighttime or can be asked for multiple times, if needed. Pt expressed understanding and appreciative. -- SW returned to room shortly after with outcome of insurance approval with [employer] 05/16. Pt will have f/u appt with Dr. Vasquez on 05/15. SW provided resource for grounding techniques. Will continue to follow. Jenna Tirado, HEARING CARE PRACTITIONER VENEREAL DISEASE INVESTIGATOR
--- NOTE | 2024-05-12 15:39 | HP.SPFEES ---
FEES Patient Information Date of Evaluation: 05/12/24 Time of Evaluation: 08:30 Diagnosis: Dysphagia R13.10 Referring Physician: Yifan Hernandez Chi Staff Providing this Care/Treatment:: LEXII Direct Billable Minutes: 120 History: Past Medical History:: Wears glasses, Alcohol use, Arthritis, Back pain, Heartburn, Gastric reflux, Leg cramps, History of edema, Non-smoker. Surgical Hx: C3-5 ACDF (04/28/2024), tonsillectomy (age 6 per pt). 04/28/2024 Admit [facility]. 04/28/2024 Dr. Vasquez performed C3-5 ACDF with instrumentation. 04/29/2024 Doing well, WBC 19.3, reactive. 04/29/2024 Sitting in chair, cervical collar in place. Dysphagia with swallowing medications. Soft solids for dysphagia. 04/30/2024 chest pain relived by GI cocktail, ekg negative stemi, negative for ischemia. WBC improved. PT/OT SNF. 04/30/2024 Admit to TCU with debility, here for rehabilitation, strengthening, prior to discharge home with . Pt referred for speech therapy consult for swallowing difficulty. MAGENTO WEB DEVELOPER deferred BSE and recommended FEES for objective assessment of swallow function and aspiration risk. No hx of dysphagia prior to surgery per pt. He reported coughing w/ both solids and liquids upon admission to TCU. FEES 05/01/2024 revealed moderate postoperative edema, concerns for thrush, and moderate oropharyngeal dysphagia. He was recommended for Puree Textures / Thin Liquids with strategies to decrease aspiration risk. Repeat FEES Sunday04/05/2024 revealed continued moderate oropharyngeal dysphagia w/ slightly worse postoperative edema. Continue puree / thin w/ use of aspiration precautions with MAGENTO WEB DEVELOPER adding increased oral care regimen and intermittent cough and re-swallow to precautions and strategies. MAGENTO WEB DEVELOPER contacted Dr. Vasquez who started pt on IV Decadron. Repeat FEES 05/09/2024 revealed mild-moderate post operative edema w/ moderate pharyngeal dysphagia and recommendation to continue puree / thin w/ use of aspiration precautions. He continued w/ IV steroids over the weekend. Repeat FEES scheduled for today to re-assess swallow function and consider pt for diet advancement. Current Diet: Drinks/Liquids:: Thin Foods:: Pureed Medication Administration:: crushed in puree Respiratory Status Observation:: Room air Dentition/Oral Hygiene: Observations:: Missing a few teeth, no partials Vocal Quality: Observations:: WNL Cognition: Observations:: WNL Position During FEES: Position During FEES:: Upright Location: In Chair Fiberoptic Endoscope: Size: 3.4 mm Nare Used:: Left Comments: Scope passed through L nare without difficulty Anatomical Findings: Anatomical Findings:: Pt?s oropharynx, hypopharynx, and laryngeal vestibule presents w/ mild-moderate edema. Whitish, surface on tongue base and upper portion of posterior pharyngeal wall. Tissue continues to be reddish-pink throughout oropharynx, hypopharynx, and laryngeal vestibule. Minimal clear secretions in the vallecula and strung from the epiglottis to the tongue base. Epiglottis appeared unchanged from previous assessment - mild edema, slight asymmetry. MAGENTO WEB DEVELOPER able to view the aryepiglottic folds, arytenoids, and subglottis as the patient breathed at rest, and the pyriform sinuses were visible during phonation. Epiglottic petiole remained edematous (red and raised). Decreased pharyngeal contraction evident during vocal glides. True vocal folds fully adducted during phonation tasks. Penetration-Aspiration Scale Penetration-Aspiration Scale Thin Liquids by Teaspoon Food/Drink Provided:: Green colored water Swallow Onset Location:: Vallecula PAS Score: PAS Score *1 Visual Analysis of Swallowing Efficiency and Safety (VASES) after the swallow: Oropharynx and Hypopharynx VASES Comments:: Residues: 10% vallecula, 5% pyriform sinuses bilaterally Thin Liquids by Single Straw Food/Drink Provided:: Green colored water Swallow Onset Location:: Epiglottis PAS Score: PAS Score *5 Visual Analysis of Swallowing Efficiency and Safety (VASES) after the swallow: Oropharynx, Hypopharynx, Epiglottis, Laryngeal Vestibule and Vocal Folds Comments:: Residues: 5% tongue base, 20% vallecula, <5% true vocal folds, <5% ventricular folds, 5% L & R pyriform sinuses, 10% posterior pharyngeal wall, 5% L lateral margin of the epiglottis. Strategies Trialed:: small sip w/ 2 effortful swallows = somewhat effective Additional Comments:: MAGENTO WEB DEVELOPER suspected aspiration of initial (large) sip taken Puree Textures Food/Drink Provided:: vanilla pudding Swallow Onset Location:: Vallecula PAS Score: PAS Score *1 Visual Analysis of Swallowing Efficiency and Safety (VASES) after the swallow: Oropharynx and Epiglottis Comments:: Residues: 20% vallecula, 15% lateral margin (L) of epiglottis. Strategies Trialed:: multiple swallows = effective Soft & Bite Sized Textures Food/Drink Provided:: Green colored pears Swallow Onset Location:: Aryepiglottic Folds PAS Score: PAS Score *8 Visual Analysis of Swallowing Efficiency and Safety (VASES) after the swallow: Oropharynx, Hypopharynx and Laryngeal Vestibule Comments:: Residues: <5% true vocal folds, <5% post cricoid region, 50% vallecula (mostly cleared after 3-4 swallows and/or liquid wash), 5% in R and L pyriforms Strategies Trialed:: Liquid wash = effective Multiple swallows = somewhat effective Additional Comments:: SILENT aspiration of thin juice. No laryngeal penetration of pears. Diagnosis/Impressions Diagnosis: Mild-moderate oropharyngeal dysphagia R13.12 Impressions: The pharyngeal phase is marked by... -Continued deficits in pharyngeal contraction secondary to continued postoperative pharyngeal edema. Pt had somewhat decreased edema since previous FEES on 05/09/24, as well as improved pharyngeal clearance, most notable w/ soft and bite size pear trials. Pears cleared with use of multiple swallows on the first trial. Second trial cleared w/ use of liquid wash. -Laryngeal penetration of thin liquids via large sip by straw to the vocal folds w/ reflexive coughing. SILENT aspiration of thin liquid juice of pear trials. Will recommend avoiding mixed consistencies. Decreased bolus size and double, effortful swallow were somewhat effective in decreasing risk for aspiration of liquids. Recommendations Diet: Soft and Bite Sized Textures and Thin Liquids Medication Administration:: Crushed in puree Comments: No mixed consistencies Compensatory strategies: 2 effortful swallows for each sip, Intermittent cough and re-swallow, 3-4 swallows per bite, Alternate bites and sips - 1:1 ratio, Small Bites, Small Sips, Slow Rate, Sitting upright and Remain sitting upright for 30 minutes after PO intake, Oral care before and after meals. Recommend Repeat Instrumental Swallow Assessment: TBD Comments: Pt was sensate of pharyngeal retention throughout FEES. Pt is ok to continue working w/ speech therapy at bedside to trial solid textures to consider patient for further diet advancement; however, if worsening respiratory status or poor diet tolerance despite use of strategies to decrease risk for aspiration, please consider further instrumental assessment via FEES or MBSS. Need for Skilled Speech Therapy Services: Yes Comments: Continue per TCU dysphagia POC. Education Completed: 1. Described result of evaluation. and 2. Pt understands evaluation & agrees with goals and treatment plan.
[2024-05-12 15:49] VITALS: RESP 14; TEMP 36.5
--- NOTE | 2024-05-12 18:23 | NURSING ---
New order received this shift to upgrade diet to Soft and bite size. Patient stated he tolerated lunch well. Patient completed last dose of Nystatin swish and swallow this shift.
--- NOTE | 2024-05-12 19:05 | NURSING ---
HEARD PT COUGHING HARD. ASKED PT WHAT WAS WRONG,PT STATED I FEEL LIKE I HAVE SOME HAMBURGER STUCK IN THE BACK OF MY THROAT AND LISET DOING MY SWALLOWING EXERCISES TO TRY AND GET IT OUT. LOOKED INTO PT MOUTH AND DIDNT SEE ANY THING IN BACK OF THROAT. NO SIGNS OF DISTRESS,OR SOB. PT HAS SOME ANXIETY. PT STATED I HAVE JUST HAD A BAD DAY. HAD PT RELAX AND PUT HIS C COLLAR BACK ON. SAT WITH PT FOR 20 MINS. PT STATED HE WAS FEELING A LITTLE BETTER. WILL CONTINUE TO MONITOR, RN AND HOSPITAL ACCOUNT LIAISON NURSE AWARE.
[2024-05-12 20:00] VITALS: PULSE 74; O2SAT 97
[2024-05-12] MEDS: Atorvastatin Calcium 20 MG Tablet PO (21:39)
[2024-05-12] MEDS: LORazepam 1 MG Tablet PO (21:48)
[2024-05-13] MEDS: Acetaminophen 500 MG Tablet 1000 MG PO ×3 (05:38→21:34)
[2024-05-13] MEDS: Enoxaparin 40 MG/0.4 ML Syringe SC (05:38)
[2024-05-13] MEDS: Gabapentin 300 MG Capsule 600 MG PO ×3 (05:38→21:34)
[2024-05-13 08:00] VITALS: BMI 29.1
[2024-05-13] MEDS: Calcium Carb/Vitamin D 1 TABLET Tablet PO (08:24)
[2024-05-13] MEDS: Multivitamin/Minerals/Iron (9 mg/15 ml) Liquid PO (08:24)
[2024-05-13] MEDS: Senna/Docusate Sodium 1 Tablet 2 TABLET PO ×2 (08:24→21:34)
[2024-05-13] MEDS: Lansoprazole 15 MG Capsule.DR 30 MG PO (08:24)
[2024-05-13] MEDS: Meloxicam 15 MG Tablet PO (08:24)
[2024-05-13 09:56] VITALS: BP 130/78; PULSE 78; RESP 16; TEMP 36.6; O2SAT 99
[2024-05-13 10:20] VITALS: BMI 29.1
[2024-05-13] MEDS: 0.9% Saline Lock 10 ML Syringe IV (10:27)
[2024-05-13] MEDS: dexAMETHasone 10 MG/ML Vial 6 MG IV (10:27)
[2024-05-13] MEDS: LORazepam 1 MG Tablet PO (21:34)
[2024-05-13] MEDS: MELATONIN 10 MG TABLET PO (21:34)
[2024-05-13] MEDS: Atorvastatin Calcium 20 MG Tablet PO (21:34)
[2024-05-14] MEDS: Enoxaparin 40 MG/0.4 ML Syringe SC (05:59)
[2024-05-14] MEDS: Acetaminophen 500 MG Tablet 1000 MG PO ×3 (05:59→21:29)
[2024-05-14] MEDS: Gabapentin 300 MG Capsule 600 MG PO ×3 (05:59→21:38)
[2024-05-14] MEDS: Meloxicam 15 MG Tablet PO (08:58)
[2024-05-14] MEDS: Lansoprazole 15 MG Capsule.DR 30 MG PO (08:58)
[2024-05-14] MEDS: Multivitamin/Minerals/Iron (9 mg/15 ml) Liquid PO (08:58)
[2024-05-14] MEDS: Calcium Carb/Vitamin D 1 TABLET Tablet PO (08:58)
[2024-05-14] MEDS: Senna/Docusate Sodium 1 Tablet 2 TABLET PO ×2 (08:59→21:29)
[2024-05-14] MEDS: dexAMETHasone 10 MG/ML Vial 6 MG IV (10:29)
[2024-05-14 10:47] VITALS: BP 134/76; PULSE 74; RESP 16; TEMP 36.3; O2SAT 99
[2024-05-14] MEDS: Atorvastatin Calcium 20 MG Tablet PO (21:28)
[2024-05-14] MEDS: Methocarbamol 750 MG Tablet PO (21:28)
[2024-05-14] MEDS: MELATONIN 10 MG TABLET PO (21:36)
[2024-05-14] MEDS: 0.9% Saline Lock 10 ML Syringe IV (21:51)
[2024-05-15] MEDS: Acetaminophen 500 MG Tablet 1000 MG PO ×3 (05:57→22:09)
[2024-05-15] MEDS: Enoxaparin 40 MG/0.4 ML Syringe SC (05:58)
[2024-05-15] MEDS: Gabapentin 300 MG Capsule 600 MG PO ×3 (06:05→22:23)
[2024-05-15 06:38] LABS: Absolute Lymphocyte Count 2.46 X10^3/uL (0.83-4.51); Absolute Neutrophil Count 6.6 X10^3/uL (2.0-7.7); Basophil# 0.01 X10^3/uL; Basophil% 0.1 % (0-1); Eosinophil# 0.03 X10^3/uL; Eosinophils% 0.3 % (0-5); Hematocrit 38.3 % (40-54); Hemoglobin 12.8 g/dL (13.0-16.5); Lymphocyte # 2.46 X10^3/ul (0.83-4.51); Lymphocyte % 24.8 % (19-41); Mean Corp Hgb Conc 33.4 g/dL (32-36); Mean Corpuscular Hgb 29.6 pg (27.0-32.0); Mean Corpuscular Volume 88.7 fL (80-94); Mean Platelet Vol. 10.3 fl (6.2-12.0); Monocyte# 0.77 X10^3/uL; Monocyte% 7.8 % (0-10); NRBC Flagged by Analyzer 0 % (0-5); Neutrophil # 6.58 X10^3/uL (2.7-7.7); Neutrophil % 66.5 % (47-70); Platelet Count 274 K/mm3 (150-450); RBC Distribution Width CV 13.5 % (11.6-14.6); RBC Distribution Width SD 43.8 fl (35.1-43.9); Red Blood Count 4.32 M/mm3 (4.6-6.2); White Blood Count 9.9 K/mm3 (4.4-11.0)
[2024-05-15 07:03] LABS: Anion Gap 6 (5-15); BUN 32 mg/dL (7-18); BUN/Creat Ratio 37.6 RATIO (10-20); Calcium,Total 9.4 mg/dL (8.5-10.1); Chloride 103 mmol/L (98-107); Creatinine, Serum 0.85 mg/dL (0.70-1.30); EST Glomerular Filtration Rate 93 mL/min (>60); Est Glom Filt Rate - Afr Amer 112 mL/min (>60); Estimated Creatinine Clearance 86.75 ml/min; Glucose 100 mg/dL (74-106); Potassium 3.8 mmol/L (3.5-5.1); Sodium Level 136 mmol/L (136-145)
[2024-05-15] MEDS: Multivitamin/Minerals/Iron (9 mg/15 ml) Liquid PO (09:17)
[2024-05-15] MEDS: Calcium Carb/Vitamin D 1 TABLET Tablet PO (09:17)
[2024-05-15] MEDS: Lansoprazole 15 MG Capsule.DR 30 MG PO (09:17)
[2024-05-15] MEDS: Meloxicam 15 MG Tablet PO (09:18)
[2024-05-15 09:27] VITALS: BP 127/68; PULSE 78; O2SAT 97
[2024-05-15] MEDS: dexAMETHasone 10 MG/ML Vial 6 MG IV (10:23)
[2024-05-15] MEDS: 0.9% Saline Lock 10 ML Syringe IV (10:25)
--- NOTE | 2024-05-15 12:40 | NURSING ---
PT LEFT AT 12 NOON BY WHEEL CHAIR WITH TO APPOINTMENT WITH .
[2024-05-15 13:37] VITALS: RESP 14; TEMP 36.5
--- NOTE | 2024-05-15 14:58 | NURSING ---
PT RETURNED BY WHEEL CHAIR WITH FROM APPOINTMENT AT 2236. NO NEW ORDERS AT THIS TIME.
[2024-05-15 17:30] VITALS: PULSE 82; RESP 18; O2SAT 96
[2024-05-15] MEDS: Atorvastatin Calcium 20 MG Tablet PO (22:10)
[2024-05-15] MEDS: Senna/Docusate Sodium 1 Tablet 2 TABLET PO (22:11)
[2024-05-15] MEDS: Methocarbamol 750 MG Tablet PO (22:14)
[2024-05-15] MEDS: MELATONIN 10 MG TABLET PO (22:17)
[2024-05-16] MEDS: Enoxaparin 40 MG/0.4 ML Syringe SC (05:48)
[2024-05-16] MEDS: Acetaminophen 500 MG Tablet 1000 MG PO ×3 (05:49→22:08)
[2024-05-16] MEDS: Gabapentin 300 MG Capsule 600 MG PO ×3 (05:49→22:08)
[2024-05-16] MEDS: Multivitamin/Minerals/Iron (9 mg/15 ml) Liquid PO (10:13)
[2024-05-16] MEDS: Calcium Carb/Vitamin D 1 TABLET Tablet PO (10:13)
[2024-05-16] MEDS: Lansoprazole 15 MG Capsule.DR 30 MG PO (10:13)
[2024-05-16] MEDS: Meloxicam 15 MG Tablet PO (10:13)
[2024-05-16] MEDS: dexAMETHasone 10 MG/ML Vial 6 MG IV (10:19)
[2024-05-16 10:21] VITALS: BP 130/65; PULSE 74; O2SAT 98
[2024-05-16] MEDS: 0.9% Saline Lock 10 ML Syringe IV (10:21)
--- NOTE | 2024-05-16 12:11 | CASEMGMT ---
Social Work SW spoke with pt and at bedside to discuss request to DC on 05/19. IDT agreeable and insurance update this date with likelihood for [facility] for 05/19. SW offered HHC vs OP. Pt prefers skilled HHC. SW provided printed list of agencies with quality and resource data via [employer]. Pt's first choice is [facility], then [facility]. No DME needs. to transport. SW phoned referral to [facility] PT/OT/ST/SN. Plan: DC home with 05/19, [facility] PT/OT/ST/SN MAXIMO DumontW
--- NOTE | 2024-05-16 14:17 | PCM.DC.SUM ---
Providers Date of Admission: 04/30/24 Primary Care Physician: Celeste Sinha MD Reason For Visit: ANTERIOR CERVICAL FUSION C3-4 Diagnosis Discharge Diagnosis (1) Status post cervical spinal fusion: Status: Acute Code(s): Z98.1 - Arthrodesis status Plan 74 year old male with below past medical history hospitalized for C3-5 anterior cervical discectomy fusion with instrumentation 04/28/[address] Vasquez, complicated by dysphagia, chest pain, reactive leukocytosis, admitted to TCU with debility, here for rehabilitation, strengthening, prior to discharge home with . Debility - PT/OT. Pain - Tylenol 1000mg q8, Oxycodone 5mg q4 prn pain (4-10), Meloxicam 15mg daily. Bowel - senna/colace 2 tablets bid, Magnesium citrate 300mL po daily prn. Adult immunization - Administer pneumonia vaccine, covid vaccine, flu vaccine as appropriate. DVT prophylaxis - Lovenox 40mg sc daily. Muscle spasm - Robaxin 750mg tid pnr. Hyperlipidemia - Atorvastatin 20mg qhs. GERD - Pantoprazole 40mg daily. Nutrition - MVI 1 tablet daily. Neuropathic pain - Gabapentin 600mg tid. Insomnia - Melatonin 3mg qhs pnr. Calcium deficiency - Calcium D 1 tablet daily. Medications at Discharge Home Medications atorvastatin 20 mg tablet 20 mg PO DAILY HYPERLIDEMIA 01/23/24 omeprazole 40 mg capsule,delayed release 40 mg PO DAILY GERD 01/23/24 gabapentin 300 mg capsule 600 mg PO TID NERVE PAIN 01/31/24 calcium 600 mg (as carbonate)-vitamin D3 5 mcg (200 unit) tablet (Calcium 600 + D(3)) 1 tab PO DAILY supplement 04/21/24 acetaminophen 500 mg tablet 1,000 mg (2 x 500 mg) PO Q8 #0 tabs 05/16/24 melatonin 10 mg sublingual tablet 10 mg PO QHS PRN PRN Insomnia 30 days #30 tabs 05/16/24 meloxicam 15 mg tablet 15 mg PO DAILY 30 days #30 tabs 05/16/24 methocarbamol 750 mg tablet 750 mg PO TID PRN Muscle Spasm 30 days #90 tabs 05/16/24 sennosides 8.6 mg-docusate sodium 50 mg tablet (Stimulant Laxative Plus) 2 tab PO BID 30 days #120 tabs 05/16/24 Hospital Course Operations - (See below.) Procedures None Summary of Care Provided Minutes Spent on Discharge: 35 Hospital Course: 74 year old male with below past medical history hospitalized for C3-5 anterior cervical discectomy fusion with instrumentation 04/28/[address] Vasquez, complicated by dysphagia, chest pain, reactive leukocytosis, admitted to TCU with debility, here for rehabilitation, strengthening, prior to discharge home with . Discharge home with 05/19/2024, [facility] PT/OT/ST/SN. Physical Exam Const alert General Appearance: cooperative HEENT normocephalic HEENT Narrative: C-Collar. Eyes PERRL and EOMs intact bilaterally Neck supple, no JVD and no carotid bruits Resp normal respiratory effort, normal air movement and clear to auscultation bilaterally Cardio regular rate and regular rhythm GI normal to inspection, nondistended, normoactive bowel sounds, non-tender and non-distended Extremity normal capillary refill General Extremity: Negative for edema Skin no rashes or lesions noted General Skin Exam: no breakdown Psych affect normal Appearance: appropriate Medical Records Data Medical Nutrition Assessment Dietitian: Malnutrition Criteria Met Start: 05/01/24 11:41 Freq: Status: Active Protocol: Document 05/01/24 11:41 MO (Rec: 05/01/24 11:41 MO [id number]) Nutrition Malnutrition Evidence of Malnutrition Exists Yes Malnutrition (moderate): Acute Illness/Injury Malnutrition (unspecified) Moderate pro/lakesha Evidenced By Suboptimal Energy Intake ( Moderate),Weight Loss (Severe) Intake Problem Increased Nutrient Needs (specify) Etiology (protein) for wound healing Signs/Symptoms Patient is s/p cervical fusion on 04/28/24 with surgical incision on neck Status Active Problem Clinical Problem Acute Disease or Injury Related Malnutrition Etiology related to acute condition as is pertains to cervical spine injury and surgery Signs/Symptoms Weight loss of 4kg (4%, x 8 days) and PO intake <75% x 5 days Status Active Problem Recommendation Dietitian Recommendations/Changes Continue regular diet Continue Ensure PHP 4x/day with medpaass to help meet energy and protein goals Order Jose Luis BID to support wound healing Weight / BMI Weight Weight: 94.438 kg Body Mass Index (BMI) 29.1 ABG / Lab / Microbiology Data 05/15/24 06:15 05/15/24 06:15 D/C Instructions Discharge Diet: No restrictions Discharge Activity: Return to Normal Activity, May Shower and Use Walker Weight Bearing Status: Weight bearing as tolerated Call your doctor if you observe: Fever of 101 or Higher, Inability to urinate, Inability to have a bowel movement, Shortness of breath, Dizziness, Fainting spells, Swelling in the ankles, Chest pain and Uncontrolled pain Additional Instructions: Discharge home with 05/19/2024, [facility] PT/OT/ST/SN. Meaningful Use Info Meaningful Use Meaningful Use Diagnoses (Choose all that apply): None applicable Ischemic Stroke Statin Dosing Therapy Reference: STATIN DOSE THERAPY REFERENCE: * Patients > 75 years receive moderate or high dose statin therapy. * Patients 75 years or YOUNGER should receive HIGH intensity statin dose unless contraindicated. You will be required to document reason for non-treatment if statin daily dose does not meet guidelines. HIGH DOSE STATIN THERAPY DAILY Atorvastatin > than or = to 40 mg Rosuvastatin > than or = to 20 mg Amlodipine + Atorvastatin > than or = to 2.5/40 mg Ezetimibe + Simvastatin 10/80 mg Simvastatin 80mg Discharge Plan Admission Admit Date/Time: 04/30/24 15:14 Primary Reason for Your Visit: Debility. Attending Provider: Yifan Hernandez Chi Primary Care Provider: Celeste Sinha Instructions Additional Instructions / Restrictions: No bending, lifting, twisting until 3 months post-op. Please follow-up with Dr. Vasquez for a 6 week post-op appointment. Discharge home with 05/19/2024, [facility] PT/OT/ST/SN. Discharge Orders/Prescriptions Prescriptions: New acetaminophen 500 mg Tablet 1,000 mg PO Q8 Qty: 0 0RF meloxicam 15 mg Tablet 15 mg PO DAILY 30 Days Qty: 30 0RF sennosides-docusate sodium [Stimulant Laxative Plus] 8.6-50 mg Tablet 2 tab PO BID 30 Days Qty: 120 0RF methocarbamol 750 mg Tablet 750 mg PO TID PRN (Reason: Muscle Spasm) 30 Days Qty: 90 0RF melatonin 10 mg Tablet, Sublingual 10 mg PO QHS PRN PRN (Reason: Insomnia) 30 Days Qty: 30 0RF Continued atorvastatin 20 mg tablet 20 mg PO DAILY omeprazole 40 mg capsule,delayed release(DR/EC) 40 mg PO DAILY gabapentin 300 mg capsule 600 mg PO TID calcium carbonate-vitamin D3 [Calcium 600 + D(3)] 600 mg-5 mcg (200 unit) tablet 1 tab PO DAILY Discontinued multivitamin Tablet 1 tab PO DAILY melatonin 3 mg Tablet 3 mg PO QHS PRN PRN (Reason: Insomnia) Qty: 0 0RF hydrocodone-acetaminophen 5-325 mg Tablet 1 tab PO Q6H PRN (Reason: pain) 7 Days Qty: 28 0RF meloxicam 15 mg Tablet 15 mg PO DAILY Qty: 30 0RF methocarbamol 500 mg Tablet 750 mg PO TID PRN (Reason: pain/spasms) Qty: 30 0RF sennosides-docusate sodium [Stimulant Laxative Plus] 8.6-50 mg Tablet 2 tab PO BID PRN (Reason: constipation) Qty: 30 0RF Referrals / Follow Up: Carson Vasquez MD [Med Staff - Active Staff] - (6 weeks surgical follow-up) Celeste Sinha MD [Primary Care Provider] - ( to make appt) Disposition Disposition (needs filled in before D/C Order can be placed): Home Health Service
[2024-05-16 15:24] VITALS: RESP 16; TEMP 36.6
[2024-05-16] MEDS: Senna/Docusate Sodium 1 Tablet 2 TABLET PO (22:09)
[2024-05-16] MEDS: Atorvastatin Calcium 20 MG Tablet PO (22:10)
[2024-05-16] MEDS: MELATONIN 10 MG TABLET PO (22:20)
[2024-05-16 22:54] VITALS: PULSE 76; RESP 18; O2SAT 95
[2024-05-17] MEDS: Enoxaparin 40 MG/0.4 ML Syringe SC (05:31)
[2024-05-17] MEDS: Gabapentin 300 MG Capsule 600 MG PO ×3 (05:31→23:08)
[2024-05-17] MEDS: Acetaminophen 500 MG Tablet 1000 MG PO ×3 (05:31→23:09)
[2024-05-17] MEDS: Calcium Carb/Vitamin D 1 TABLET Tablet PO (08:37)
[2024-05-17] MEDS: Multivitamin/Minerals/Iron (9 mg/15 ml) Liquid PO (08:37)
[2024-05-17] MEDS: Meloxicam 15 MG Tablet PO (08:37)
[2024-05-17] MEDS: Lansoprazole 15 MG Capsule.DR 30 MG PO (08:37)
[2024-05-17] MEDS: Senna/Docusate Sodium 1 Tablet 2 TABLET PO ×2 (08:38→23:10)
[2024-05-17 08:40] VITALS: BP 140/62; PULSE 68; TEMP 36; O2SAT 98
[2024-05-17] MEDS: 0.9% Saline Lock 10 ML Syringe IV (08:48)
[2024-05-17 08:59] VITALS: PULSE 68; RESP 16; O2SAT 98
[2024-05-17] MEDS: Polyethylene Glycol 3350 17 GM PACKET PO (13:16)
[2024-05-17] MEDS: MELATONIN 10 MG TABLET PO (23:09)
[2024-05-17] MEDS: Magnesium Citrate 300 ML PO (23:10)
[2024-05-17] MEDS: Atorvastatin Calcium 20 MG Tablet PO (23:10)
[2024-05-18] MEDS: Gabapentin 300 MG Capsule 600 MG PO ×3 (06:07→21:20)
[2024-05-18] MEDS: Acetaminophen 500 MG Tablet 1000 MG PO ×3 (06:07→21:21)
[2024-05-18] MEDS: Enoxaparin 40 MG/0.4 ML Syringe SC (06:12)
[2024-05-18] MEDS: Multivitamin/Minerals/Iron (9 mg/15 ml) Liquid PO (07:28)
[2024-05-18] MEDS: Lansoprazole 15 MG Capsule.DR 30 MG PO (07:28)
[2024-05-18] MEDS: Calcium Carb/Vitamin D 1 TABLET Tablet PO (07:28)
[2024-05-18] MEDS: Meloxicam 15 MG Tablet PO (07:28)
[2024-05-18] MEDS: Senna/Docusate Sodium 1 Tablet 2 TABLET PO ×2 (07:28→21:20)
[2024-05-18 07:31] VITALS: BP 134/69; PULSE 63; TEMP 36.5
--- NOTE | 2024-05-18 14:58 | NURSING ---
pt assisted with ambulating pt in [place] for exercise today, followed with WC
[2024-05-18 20:00] VITALS: PULSE 66; O2SAT 94
[2024-05-18] MEDS: MELATONIN 10 MG TABLET PO (21:20)
[2024-05-18] MEDS: Atorvastatin Calcium 20 MG Tablet PO (21:22)
[2024-05-19] MEDS: Gabapentin 300 MG Capsule 600 MG PO (05:31)
[2024-05-19] MEDS: Acetaminophen 500 MG Tablet 1000 MG PO (05:31)
[2024-05-19] MEDS: Enoxaparin 40 MG/0.4 ML Syringe SC (05:34)
[2024-05-19 05:42] VITALS: PULSE 76; O2SAT 97
[2024-05-19] MEDS: Calcium Carb/Vitamin D 1 TABLET Tablet PO (09:14)
[2024-05-19] MEDS: Lansoprazole 15 MG Capsule.DR 30 MG PO (09:14)
[2024-05-19] MEDS: Multivitamin/Minerals/Iron (9 mg/15 ml) Liquid PO (09:14)
[2024-05-19] MEDS: Meloxicam 15 MG Tablet PO (09:15)
[2024-05-19] MEDS: Senna/Docusate Sodium 1 Tablet 2 TABLET PO (09:15)
[2024-05-19 09:45] VITALS: BP 139/61; PULSE 72; RESP 18; TEMP 36.5; O2SAT 96
--- NOTE | 2024-05-19 11:31 | CASEMGMT ---
Social Work SW completed BIMS () and PHQ-2 () for MDS assessment. Jenna Tirado MSW PAID SEARCH MANAGER
== END 2024-05-19 10:00 | disposition home health service (06) | DRG 560 ==
PROVIDERS: Admitting Provider Family Medicine Geriatric Medicine; PCP Family Medicine; Referring Provider Family Medicine Geriatric Medicine; Visit Provider Family Medicine Geriatric Medicine
DX: Z47.89 Encounter for other orthopedic aftercare (principal); E44.1 Mild protein-calorie malnutrition; B37.0 Candidal stomatitis; R13.10 Dysphagia, unspecified; G62.9 Polyneuropathy, unspecified; E58 Dietary calcium deficiency; E78.5 Hyperlipidemia, unspecified; K21.9 Gastro-esophageal reflux disease without esophagitis; M19.90 Unspecified osteoarthritis, unspecified site; M48.02 Spinal stenosis, cervical region; F41.9 Anxiety disorder, unspecified; Z98.1 Arthrodesis status; Z79.899 Other long term (current) drug therapy; G47.00 Insomnia, unspecified; Z23 Encounter for immunization; Z68.28 Body mass index [BMI] 28.0-28.9, adult
CPT/HCPCS: 36415; 72050; 80048; 82306; 85025; 90480; 91322; 92526; 92610; 92612; 94667; 97110; 97116; 97162; 97166; 97530; 97535; 97802; A4216

== ENCOUNTER → 2024-12-30 | Outpatient (CLI) | payer MEDICARE, SELFPAY ==
[2024-12-30 10:10] LABS: Absolute Lymphocyte Count 1.96 X10^3/uL (0.83-4.51); Absolute Neutrophil Count 3.5 X10^3/uL (2.0-7.7); Basophil# 0.02 X10^3/uL; Basophil% 0.3 % (0-1); Eosinophil# 0.19 X10^3/uL; Eosinophils% 3.1 % (0-5); Hematocrit 40.9 % (40-54); Hemoglobin 13.5 g/dL (13.0-16.5); Lymphocyte # 1.96 X10^3/ul (0.83-4.51); Lymphocyte % 31.6 % (19-41); Mean Corpuscular Hgb 30.1 pg (27.0-32.0); Mean Corpuscular Volume 91.1 fL (80-94); Mean Platelet Vol. 11.1 fl (6.2-12.0); Monocyte# 0.54 X10^3/uL; Monocyte% 8.7 % (0-10); NRBC Flagged by Analyzer 0 % (0-5); Neutrophil # 3.49 X10^3/uL (2.7-7.7); Neutrophil % 56.1 % (47-70); Platelet Count 206 K/mm3 (150-450); RBC Distribution Width CV 13.6 % (11.6-14.6); RBC Distribution Width SD 45.7 fl (35.1-43.9); Red Blood Count 4.49 M/mm3 (4.6-6.2); White Blood Count 6.2 K/mm3 (4.4-11.0)
[2024-12-30 10:42] LABS: ALB/GLOB Ratio 1.7 RATIO (0.9-2.4); AST(SGOT) 27 U/L (<=37); Alanine Aminotransfer ALT/SGPT 21 U/L (<=46); Albumin, Serum 4.2 g/dL (3.4-4.8); Alkaline Phosphatase 86 U/L (40-129); Anion Gap 11 (5-15); BUN 12 mg/dL (4-19); BUN/Creat Ratio 13.2 RATIO (10-20); Calcium,Total 9.3 mg/dL (7.6-11.0); Chloride 101 mmol/L (98-108); Cholesterol 219 mg/dL (<=200); Creatinine, Serum 0.94 mg/dL (0.70-1.20); EST Glomerular Filtration Rate 84 (>60); Globulin 2.5 g/dL (2.2-4.2); Glucose 95 mg/dL (70-99); High Density Lipoprotein 46 mg/dL; Low Density Lipoprotein Calc. 135 mg/dL; PSA,Total - Annual Screen 2.12 ng/mL (0.02-4.00); Potassium 4.2 mmol/L (3.3-5.1); Protein, Total 6.7 g/dL (5.9-8.4); Sodium Level 138 mmol/L (133-145); Triglycerides 187 mg/dL; Very Low Density Lipoprotein 37 mg/dL (5-40); cholesterol:hdl ratio screen 4.73
== END | disposition home or self-care (01) ==
LOC: MFPLAB 08:31
PROVIDERS: PCP Family Medicine; Referring Provider Family Medicine; Visit Provider Family Medicine
DX: I10 Essential (primary) hypertension (principal); E78.5 Hyperlipidemia, unspecified; Z12.5 Encounter for screening for malignant neoplasm of prostate
CPT/HCPCS: 36415; 80053; 80061; 84153; 85025; G0103